=== PATIENT | male | born 1945 | race Caucasian/White ===

== ENCOUNTER 2019-11-04 11:04 | Observation (INO) | payer MEDICARE, OTHER ==
[2019-11-04] VITALS (7 sets, daily range): BP systolic 136–150; BP diastolic 76–90
[~2019-11-04] VITALS: Ht 187.9 cm; Wt 117.9 kg
[~2019-11-04 11:04] MED LIST: IBP600T1 PO; LISI1TAB32
[2019-11-04] MEDS ORDERED: NITROGLYCERIN 0.4 MG SL TABS BTL 25'S SL PRN ×2 (11:15→14:00)
[2019-11-04] MEDS ORDERED: ASPIRIN 81 MG CHEW (CHILDREN'S ASA) PO ONE (11:15)
--- NOTE | 2019-11-04 11:23 | ED Chest Pain ---
General Stated Complaint: CHEST PAIN Source: patient (VERY VAGUE HISTORIAN AND GIVES MINIMAL ANSWERS. ) History of Present Illness Date Seen by Provider: Nov 04, 2019 Time Seen by Provider: 11:07 Initial Comments PT ARRIVES VIA POV FROM HOME C/O LEFT UPPER CHEST PAIN, RADIATING DOWN LEFT ARM--SINCE Monday11/02/19 PAIN COMES AND GOES, AND IS WORSE WITH ACTIVITY. RATES PAIN 5/10 AT WORST, RATES 3-4/10 NOW. DOES NOT KNOW IF HE HAS HAD SHORTNESS OF BREATH OR NOT NO PALPITATIONS NO NAUSEA/VOMITING DOESN'T KNOW IF HE HAS HAD SWELLING IN FEET/ANKLES/LEGS OR NOT NO HISTORY OF SIMILAR PT HAS HTN PT IS ALSO DIABETIC, HAS NOT CHECKED HIS BLOOD SUGAR FOR SEVERAL DAYS. HAS TAKEN HIS AM MEDICATIONS, INCLUDING 3 IBUPROFEN--HAS HAD GOUT RECENTLY IN LEFT FOOT AND HAS BEEN TAKING IBUPROFEN FOR THAT--STATES HE WASN'T TAKING IT FOR THE CHEST PAIN, AND DOES NOT KNOW IF IT HAS HELPED HIS PAIN OR NOT. PAIN IS NO DIFFERENT TODAY HAS NOT SOUGHT CARE UNTIL TODAY PCP: DR. SIFUENTES Allergies and Home Medications Allergies Coded Allergies: Penicillins (Unverified Allergy, Mild, 07/27/09) Patient Home Medication List Home Medication List Reviewed: Yes Review of Systems Review of Systems Constitutional: no symptoms reported Respiratory: See HPI Cardiovascular: See HPI, Chest Pain Musculoskeletal: see HPI Psychiatric/Neurological: No Symptoms Reported Past Nxfipur-Byczed-Hmyqzf Hx Past Med/Social Hx: Reviewed and Corrections made Patient Social History Alcohol Use: Denies Use Recreational Drug Use: No Smoking Status: Never a Smoker Past Medical History Surgeries: Yes (BILATERAL KNEE REPLACEMENTS;COLONOSCOPY/POLYPECTOMIES 2006) Adenoidectomy, Gallbladder, Joint Replacement, Orthopedic, Tonsillectomy Respiratory: No Cardiac: Yes Hypertension Neurological: No Reproductive Disorders: No Genitourinary: Yes (E.D.) Gastrointestinal: Yes (S/P CHOLECYSTECTOMY;COLONOSCOPY 2006--POLYPECTOMY, DIVERTICULOSIS) Diverticulosis, Pancreatitis (DUE TO GALLSTONES), Polyps, Gall Bladder Disease Musculoskeletal: Yes (BILATERAL KNEE REPLACEMENTS; CHRONIC LOW BACK PAIN ) Arthritis, Chronic Back Pain, Gout Endocrine: Yes Diabetes, Non-Insulin dep HEENT: No Cancer: No Psychosocial: No Integumentary: No Blood Disorders: No Physical Exam Vital Signs Vital Signs - First Documented 11/04/19 11:07 Temp 37.0 Pulse 68 Resp 15 B/P (MAP) 188/101 (130) Pulse Ox 97 O2 Delivery Room Air Capillary Refill : Height, Weight, BMI Height: '" Weight: lbs. oz. kg; BMI Method: General Appearance: No Apparent Distress, WD/WN, Other (NONCHALANT, CHEWING GUM, DOES NOT MAKE EYE CONTACT. DOES NOT APPEAR TO BE IN ANY DISCOMFORT OR DISTRESS. 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 Norm as Tested Skin: Normal Color, Warm/Dry Progress/Results/Core Measures Results/Orders Lab Results Laboratory Tests Test 11/04/19 11:20 11/04/19 12:18 Range/Units White Blood Count 6.3 4.3-11.0 10^3/uL Red Blood Count 4.20 L 4.35-5.85 10^6/uL Hemoglobin 12.4 L 13.3-17.7 G/DL Hematocrit 36 L 40-54 % Mean Corpuscular Volume 86 80-99 FL Mean Corpuscular Hemoglobin 30 25-34 PG Mean Corpuscular Hemoglobin Concent 34 32-36 G/DL Red Cell Distribution Width 14.5 10.0-14.5 % Platelet Count 166 130-400 10^3/uL Mean Platelet Volume 9.6 7.4-10.4 FL Neutrophils (%) (Auto) 66 42-75 % Lymphocytes (%) (Auto) 21 12-44 % Monocytes (%) (Auto) 10 0-12 % Eosinophils (%) (Auto) 2 0-10 % Basophils (%) (Auto) 0 0-10 % Neutrophils # (Auto) 4.2 1.8-7.8 X 10^3 Lymphocytes # (Auto) 1.4 1.0-4.0 X 10^3 Monocytes # (Auto) 0.6 0.0-1.0 X 10^3 Eosinophils # (Auto) 0.1 0.0-0.3 10^3/uL Basophils # (Auto) 0.0 0.0-0.1 10^3/uL Prothrombin Time 13.7 12.2-14.7 SEC INR Comment 1.0 0.8-1.4 Activated Partial Thromboplast Time 29 24-35 SEC Sodium Level 140 135-145 MMOL/L Potassium Level 4.3 3.6-5.0 MMOL/L Chloride Level 106 98-107 MMOL/L Carbon Dioxide Level 25 21-32 MMOL/L Anion Gap 9 5-14 MMOL/L Blood Urea Nitrogen 26 H 7-18 MG/DL Creatinine 1.33 H 0.60-1.30 MG/DL Estimat Glomerular Filtration Rate 53 BUN/Creatinine Ratio 20 Glucose Level 92 70-105 MG/DL Calcium Level 9.9 8.5-10.1 MG/DL Corrected Calcium 9.8 8.5-10.1 MG/DL Magnesium Level 1.8 1.6-2.4 MG/DL Total Bilirubin 0.5 0.1-1.0 MG/DL Aspartate Amino Transf (AST/SGOT) 21 5-34 U/L Alanine Aminotransferase (ALT/SGPT) 21 0-55 U/L Alkaline Phosphatase 98 40-136 U/L Total Creatine Kinase 73 30-200 U/L Creatine Kinase MB 1.8 <6.6 NG/ML Myoglobin 118.1 H 10.0-92.0 NG/ML Troponin I < 0.028 <0.028 NG/ML B-Type Natriuretic Peptide 13.5 <100.0 PG/ML Total Protein 6.6 6.4-8.2 GM/DL Albumin 4.1 3.2-4.5 GM/DL Amylase Level 74 25-125 U/L Lipase 21 8-78 U/L Urine Color YELLOW Urine Clarity CLEAR Urine pH 5.5 5-9 Urine Specific [place] 1.010 L 1.016-1.022 Urine Protein NEGATIVE NEGATIVE Urine Glucose (UA) NEGATIVE NEGATIVE Urine Ketones NEGATIVE NEGATIVE Urine Nitrite NEGATIVE NEGATIVE Urine Bilirubin NEGATIVE NEGATIVE Urine Urobilinogen 0.2 < = 1.0 MG/DL Urine Leukocyte Esterase NEGATIVE NEGATIVE Urine RBC (Auto) NEGATIVE NEGATIVE Urine RBC NONE /HPF Urine WBC NONE /HPF Urine Squamous Epithelial Cells RARE /HPF Urine Crystals NONE /LPF Urine Bacteria NEGATIVE /HPF Urine Casts NONE /LPF Urine Mucus NEGATIVE /LPF Urine Culture Indicated NO My Orders Orders - JAMES PINEDA DO Cbc With Automated Diff (11/04/19 11:09) Magnesium (11/04/19 11:09) Chest 1 View, Ap/Pa Only (11/04/19 11:09) Ekg Tracing (11/04/19 11:09) Comprehensive Metabolic Panel (11/04/19 11:09) Myoglobin Serum (11/04/19 11:09) Protime With Inr (11/04/19 11:09) Partial Thromboplastin Time (11/04/19 11:09) O2 (11/04/19 11:09) Monitor-Rhythm Ecg Trace Only (11/04/19 11:09) Ed Iv/Invasive Line Start (11/04/19 11:09) Creatine Kinase (11/04/19 11:09) Creatine Kinase Mb (11/04/19 11:09) Lipase (11/04/19 11:09) Amylase (11/04/19 11:09) BNP (11/04/19 11:09) Nitroglycerin 0.4 Mg Btl 25's (Nitrostat (11/04/19 11:15) Aspirin Chewable Tablet (Baby Aspirin Ch (11/04/19 11:15) Troponin I (11/04/19 11:20) 1/2 Ns Iv Solution (0.45% Sodium Chlorid (11/04/19 12:30) Ua Culture If Indicated (11/04/19 12:30) Medications Given in ED Current Medications Medications Dose Ordered Sig/Gaby Route Start Time Stop Time Status Last Admin Dose Admin Aspirin 324 mg ONCE ONCE PO 11/04/19 11:15 11/04/19 11:16 DC 11/04/19 11:21 324 MG Nitroglycerin 0.4 mg UD PRN SL 11/04/19 11:15 11/04/19 11:22 0.4 MG Vital Signs/I&O 11/04/19 11:07 Temp 37.0 Pulse 68 Resp 15 B/P (MAP) 188/101 (130) Pulse Ox 97 O2 Delivery Room Air Progress Progress Note : Progress Note GIVEN ASPIRIN AND NTG X 1 WITH COMPLETE RELIEF OF SYMPTOMS, AND BP DOWN. NO DETERIORATION IN PT'S CONDITION DURING ER STAY Initial ECG Impression Date: Nov 04, 2019 Initial ECG Impression Time: 11:13 Initial ECG Rate: 64 Initial ECG Rhythm: Normal Sinus (LAFB) Initial ECG Impression: Nonspecific Changes Initial ECG Comparisson: Changed (AXIS CHANGE, LAFB--CHANGED FROM 2008. ) Diagnostic Imaging Comments CXR--MILD CARDIOMEGALY AND VASCULAR CONGESTION--PER RADIOLOGIST REPORT AT 1204 Reviewed: Reviewed by Me Departure Communication (Admissions) 1224--SPOKE WITH DR. PIPER, HOSPITALIST, ACCEPTS PT FOR ADMIT. WILL CONSULT CARDIOLOGY Impression Primary Impression: Chest pain Additional Impressions: HTN (hypertension) NIDDM Renal insufficiency Disposition: ADMITTED INPATIENT Condition: Improved Admissions Decision to Admit Reason: Admit from ER (General) Decision to Admit/Date: Nov 04, 2019 Time/Decision to Admit Time: 12:25 Departure-Patient Inst. Referrals: TASHA SIFUENTES MD (PCP) Primary Care Physician JAMES PINEDA DO Nov 04, 2019 11:23
[2019-11-04 11:33] LABS: BASOPHILS % (AUTO) 0 % (0-10); EOSINOPHILS # (AUTO) 0.1 10^3/uL (0.0-0.3); EOSINOPHILS % (AUTO) 2 % (0-10); HEMATOCRIT 36 % (40-54); HEMOGLOBIN 12.4 G/DL (13.3-17.7); LYMPHOCYTES # (AUTO) 1.4 X 10^3 (1.0-4.0); LYMPHOCYTES % (AUTO) 21 % (12-44); MEAN CORPUSCULAR HEMOGLOBIN 30 PG (25-34); MEAN CORPUSCULAR HGB CONC 34 G/DL (32-36); MEAN CORPUSCULAR VOLUME 86 FL (80-99); MEAN PLATELET VOLUME 9.6 FL (7.4-10.4); MONOCYTES # (AUTO) 0.6 X 10^3 (0.0-1.0); MONOCYTES % (AUTO) 10 % (0-12); NEUTROPHILS # (AUTO) 4.2 X 10^3 (1.8-7.8); NEUTROPHILS % (AUTO) 66 % (42-75); PLATELET COUNT 166 10^3/uL (130-400); RED CELL DISTRIBUTION WIDTH 14.5 % (10.0-14.5); WHITE BLOOD COUNT 6.3 10^3/uL (4.3-11.0)
[2019-11-04 11:53] LABS: PROTHROMBIN TIME PATIENT 13.7 SEC (12.2-14.7)
--- NOTE | 2019-11-04 11:59 | Diagnostic Imaging Report ---
INDICATION: Chest pain. EXAMINATION: Single AP view of the chest is obtained with comparison made to study of 07/27/2009. FINDINGS: There is mild cardiomegaly and pulmonary venous congestion, however no overt pulmonary edema is identified. There is no evidence of pneumothorax. No significant pleural fluid is seen. IMPRESSION: Mild cardiomegaly and pulmonary venous congestion without acute abnormality detected. Dictated by: Dictated on workstation # [id number]
[2019-11-04 12:05] LABS: CARBON DIOXIDE 25 MMOL/L (21-32); CHLORIDE 106 MMOL/L (98-107); POTASSIUM 4.3 MMOL/L (3.6-5.0); SODIUM 140 MMOL/L (135-145)
[2019-11-04 12:06] LABS: ALANINE AMINOTRANSFERASE 21 U/L (0-55); ALBUMIN 4.1 GM/DL (3.2-4.5); ALKALINE PHOSPHATASE 98 U/L (40-136); AMYLASE 74 U/L (25-125); BILIRUBIN,TOTAL 0.5 MG/DL (0.1-1.0); BUN/CREATININE RATIO 20; CALCIUM 9.9 MG/DL (8.5-10.1); CREATINE KINASE 73 U/L (30-200); CREATININE SERUM 1.33 MG/DL (0.60-1.30); GFR ESTIMATED 53; GLUCOSE 92 MG/DL (70-105); LIPASE 21 U/L (8-78); MAGNESIUM 1.8 MG/DL (1.6-2.4); TOTAL PROTEIN 6.6 GM/DL (6.4-8.2)
[2019-11-04 12:13] LABS: CREATINE KINASE MB 1.8 NG/ML (<6.6)
[2019-11-04 12:37] LABS: BILIRUBIN,URINE NEGATIVE (NEGATIVE); CLARITY,URINE CLEAR; COLOR,URINE YELLOW; GLUCOSE, URINE (UA) NEGATIVE (NEGATIVE); KETONES,URINE NEGATIVE (NEGATIVE); LEUKOCYTE ESTERASE ,URINE NEGATIVE (NEGATIVE); NITRITE,URINE NEGATIVE (NEGATIVE); PH,URINE 5.5 (5-9); PROTEIN,URINE NEGATIVE (NEGATIVE)
[2019-11-04 12:49] LABS: BACTERIA,URINE NEGATIVE /HPF; SQUAMOUS EPITHELIAL CELL,UR RARE /HPF
[2019-11-04] MEDS: 1/2 NS IV SOLUTION 1,000 ML IV SCH ×3 (12:50→22:54)
[2019-11-04] MEDS ORDERED: GLIM1TAB4 (13:11)
[2019-11-04] MEDS ORDERED: LISI1TAB26 PO (13:11)
[2019-11-04] MEDS ORDERED: METF500T19 PO (13:11)
[2019-11-04] MEDS ORDERED: AMLO5TAB9 PO (13:11)
[2019-11-04] MEDS ORDERED: ONDANSETRON 4 MG/2 ML (SDV) Z0FRAN IVP PRN (13:45)
[2019-11-04] MEDS ORDERED: 1/2 NS IV SOLUTION 1,000 ML IV SCH (13:45)
[2019-11-04] MEDS ORDERED: CATHETER FLUSH 10 ML SYR IV PRN (14:00)
[2019-11-04] MEDS ORDERED: morphine INJ 4 MG/ML 1 ML (VIAL/SYRINGE) IV PRN (14:00)
--- NOTE | 2019-11-04 14:47 | History & Physical-Hospitalist ---
HARRYMODE,MED STUDENT 11/04/19 1447: History of Present Illness HPI/Chief Complaint Patient is a 74 y/o male with history of hypertension and type II non-insulin dependent diabetes mellitus who presents with chest pain. 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 He describes it as a chest heaviness that radiates to the left side of his neck, shoulder, and arm. The pain is made worse with exertion and improves with rest. He denies any associated nausea, diaphoresis, or lightheadedness. No palpitations or sharp franck st pains. He rates the pain as a 5/10 in severity. He is not sure what his last A1c was or what his blood sugars have been over the past week. Date Seen 11/04/19 Time Seen by a Provider: 14:20 Attending Physician Chad Crabtree MD PCP Chad Crabtree MD Referring Physician Date of Admission Nov 04, 2019 at 12:44 Home Medications & Allergies Home Medications Reviewed patient Home Medication Reconciliation performed by pharmacy medication reconciliations civil technician and/or nursing. Patients Allergies have been reviewed. Allergies Allergies Coded Allergies Penicillins (Unverified Allergy, Mild, 07/27/09) Past Uvifutm-Xbfppa-Aexjja Hx Past Med/Social Hx: Reviewed and Corrections made Patient Social History Marrital Status: Alcohol Use: Denies Use Recreational Drug Use: No Smoking Status: Never a Smoker Recent Foreign Travel: No Contact w/other who traveled: No Recent Hopitalizations: Yes Recent Infectious Disease Expo: No Immunizations Up To Date Tetanus Booster (TDap): Unknown Pediatric: Yes Date of Influenza Vaccine: Jul 04, 2019 Past Medical History Surgeries: Adenoidectomy, Gallbladder, Joint Replacement, Orthopedic, Tonsill ectomy Cardiac: Hypertension Reproductive: No Sexually Transmitted Disease: No Gastrointestinal: Diverticulosis, Pancreatitis (DUE TO GALLSTONES), Polyps, Gall Bladder Disease Musculoskeletal: Arthritis, Chronic Back Pain, Gout Endocrine: Diabetes, Non-Insulin dep History of Blood Disorders: No Family History Diabetes, Hypertension, Stroke Review of Systems Constitutional: No diaphoresis, No fever EENTM: No hearing loss, No vision loss Respiratory: No cough, No short of breath Cardiovascular: chest pain; No edema, No palpitations Gastrointestinal: No abdominal pain, No constipation, No diarrhea, No nausea Genitourinary: No dysuria, No frequency Musculoskeletal: No joint pain, No muscle pain Skin: No lesions, No rash Psychiatric/Neurological: Denies Headache, Denies Numbness, Denies Paresthesia Physical Exam Physical Exam Vital Signs Vital Signs - First Documented 11/04/19 11:07 Temp 37.0 Pulse 68 Resp 15 B/P (MAP) 188/101 (130) Pulse Ox 97 O2 Delivery Room Air Capillary Refill : Less Than 3 Seconds Height, Weight, BMI Height: '" Weight: lbs. oz. kg; 33.00 BMI Method: General Appearance: No Apparent Distress, WD/WN HEENT: Pharynx Normal, Moist Mucous Membranes Neck: Normal Inspection, Non Tender, Supple Respiratory: Chest Non Tender, Lungs Clear, Normal Breath Sounds, No Accessory Muscle Use, No Respiratory Distress Cardiovascular: Regular Rate, Rhythm, No Edema, No Murmur Gastrointestinal: Non Tender, Soft Extremity: No Calf Tenderness, No Pedal Edema Neurologic/Psychiatric: Alert, Normal Mood/Affect Skin: Normal Color, Warm/Dry Results Results/Procedures Labs Laboratory Tests 11/04/19 11:20 Patient resulted labs reviewed. Assessment/Plan Admission Diagnosis Angina Assessment and Plan Stable angina - His myoglobin is elevated but troponin and CK-MB are wnl - Trend cardiac enzymes - Telemetry - Consult cardiology - Aspirin 81 mg daily - Nitro as needed - Lipid panel Acute kidney injury - May be due to elevated myoglobin - IV fluids NS at 160 ml/hr Non-insulin dependent type II DM - Hold metformin - Sliding scale insulin Clinical Quality Measures AMI/AHF: ASA po Prior to arrival: No DVT/VTE Risk/Contraindication: Risk Factor Score Per Nursin RFS Level Per Nursing on Admit: 2=Moderate DESHAUN HERNADEZ MD 11/04/19 1545: Assessment/Plan Admission Diagnosis Admission Status: Observation Assessment and Plan Pt has symptoms concerning for typical chest pain. Left sided chest heaviness with exertion that radiates to his jaw and left arm. No nausea. Mild dyspnea on exertion at times. Discussed with Dr Jack Nur's MICROBIOLOGY LAB ASSISTANT and plan is likely to proceed with cardiac cath. ASA given 324mg. Morpine and nitro prn pain. Hold home metformin for contrast. Diagnosis/Problems Diagnosis/Problems (1) HTN (hypertension) Status: Acute (2) Chest pain Status: Acute (3) Renal insufficiency Status: Acute Supervisory-Addendum Brief Verification & Attestation Participated in pt care: history, MDM, physical Personally performed: exam, history, MDM, supervision of care Care discussed with: Medical Student Procedures: n/a Results interpretation: Verified all documentation Verification and Attestation of Medical Student E/M Service A medical student performed and documented this service in my presence. I reviewed and verified all information documented by the medical student and made modifications to such information, when appropriate. I personally performed the physical exam and medical decision making. Deshaun Hernadez, Nov 04, 2019,15:45 MODE MCDONALD,MED STUDENT Nov 04, 2019 14:47 DESHAUN HERNADEZ MD Nov 04, 2019 15:45
--- NOTE | 2019-11-04 15:10 | Consultation-Cardiology ---
HPI-Cardiology Cardiology Consultation: Date of Consultation 11/04/19 Time Seen by a Provider: 15:05 Date of Admission 11-04-2019 Attending Physician Chad Crabtree MD Admitting Physician Chad Crabtree MD Consulting Physician CIERRA GÓMEZ HPI: Chief Complaint: Chest pain Mr. Matthew is a 74 year old male admitted to ICU 4 from the ED with c/o CP. 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 He reports after resting for a few minutes it improved. He states with exertion he would have a recurrence of the chest pressure and it would resolve with rest. He states on Monday it improved. 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 No c/o diaphoresis, dyspnea, palpitations, syncope or near syncope. He states he was having pain still when he arrived at the ED. He reports he received nitro in the ED and the pain resolved. He reports chronic bilat LE swelling which is least in the morning and worse at the end of the day. He reports he had an episode of gout in his right foot 2 weeks ago for which he was treated with Ibuprofen and abx tx. He reports episodes of "hot flashes" at night which he has had for over a year and was previously on testosterone tx, but has not been taking for over a year. He denies any n/v/d. He denies any fever. Review of Systems-Cardiology Review of Systems Constitutional: As described under HPI; No malaise Eyes: No vision change Ears/Nose/Throat: No epistaxis, No recent hearing loss Respiratory: As described under HPI Cardiovascular: As described under HPI Gastrointestinal: No constipation, No diarrhea, No nausea, No vomiting Genitourinary: No dysuria, No hematuria Musculoskeletal: As describe under HPI Skin: No rash on exposed areas, No ulcerations on exposed areas Psychiatric/Neurological: No anxiety, No depression, No seizure, No focal weakness, No syncope Hematologic: No bleeding abnormalities FRK-Mvobkd-Tluzcv Hx Patient Social History Alcohol Use: Denies Use Recreational Drug Use: No Smoking Status: Never a Smoker Recent Foreign Travel: No Recent Infectious Disease Expo: No Hospitalization with Isolation: Denies Immunizations Up To Date Tetanus Booster (TDap): Unknown Date of Influenza Vaccine: Jul 04, 2019 Past Medical History PMH As described under Assessment. Family Medical History Family Medical History: He reports his father had a CVA in his 70's. No other reported family h/o CAD. Allergies and Home Medications Allergies Coded Allergies: Penicillins (Unverified Allergy, Mild, 07/27/09) Physical Exam-Cardiology Physical Exam Vital Signs/I&O 11/04/19 11/04/19 11/05/19 11/05/19 22:00 23:00 00:00 00:00 Temp 36.6 Pulse 55 62 Resp 19 6 B/P (MAP) 145/77 (99) Pulse Ox 95 96 O2 Delivery Room Air Room Air Room Air 11/05/19 11/05/19 11/05/19 11/05/19 01:34 04:00 04:59 07:00 Pulse 60 52 59 Resp 12 B/P (MAP) 143/76 (98) Pulse Ox 94 O2 Delivery Room Air Room Air 11/05/19 11/05/19 08:00 08:00 Temp 36.3 Pulse 60 Resp 16 B/P (MAP) 145/81 (102) Pulse Ox 97 O2 Delivery Room Air Room Air 11/05/19 00:00 Intake Total 610 ml Output Total 1250 ml Balance -640 ml Capillary Refill : Less Than 3 Seconds Constitutional: AAO x 3, well-developed, well-nourished HEENT: PERRL, hearing is well preserved, oral hygience is good Neck: No carotid bruit; carotid pulses are 2 + bilaterally Respiratory: No accessory muscle use, No respiratory distress; chest expansion is symmetric, chest is bilaterally symmetric, lungs clear to auscultation Cardiovascular: regular rate-rhythm; No JVD; S1 and S2 Gastrointestinal: No tender; soft, round, audible bowel sounds Extremities: no lower extremity edema bilateral Neurologic/Psychiatric: grossly intact (moves all extremities) Skin: No rash on exposed areas, No ulcerations on exposed areas Data Review Labs Laboratory Tests 11/04/19 11:20: White Blood Count 6.3, Red Blood Count 4.20L, Hemoglobin 12.4L, Hematocrit 36L, Mean Corpuscular Volume 86, Mean Corpuscular Hemoglobin 30, Mean Corpuscular Hemoglobin Concent 34, Red Cell Distribution Width 14.5, Platelet Count 166, Mean Platelet Volume 9.6, Neutrophils (%) (Auto) 66, Lymphocytes (%) (Auto) 21, Monocytes (%) (Auto) 10, Eosinophils (%) (Auto) 2, Basophils (%) (Auto) 0, Ne utrophils # (Auto) 4.2, Lymphocytes # (Auto) 1.4, Monocytes # (Auto) 0.6, Eosinophils # (Auto) 0.1, Basophils # (Auto) 0.0, Prothrombin Time 13.7, INR Comment 1.0, Activated Partial Thromboplast Time 29, Sodium Level 140, Potassium Level 4.3, Chloride Level 106, Carbon Dioxide Level 25, Anion Gap 9, Blood Urea Nitrogen 26H, Creatinine 1.33H, Estimat Glomerular Filtration Rate 53, BUN/Creatinine Ratio 20, Glucose Level 92, Calcium Level 9.9, Corrected Calcium 9.8, Magnesium Level 1.8, Total Bilirubin 0.5, Aspartate Amino Transf (AST/SGOT) 21, Alanine Aminotransferase (ALT/SGPT) 21, Alkaline Phosphatase 98, Total Creatine Kinase 73, Creatine Kinase MB 1.8, Myoglobin 118.1H, Troponin I < 0.028, B-Type Natriuretic Peptide 13.5, Total Protein 6.6, Albumin 4.1, Amylase Level 74, Lipase 21 11/04/19 12:18: Urine Color YELLOW, Urine Clarity CLEAR, Urine pH 5.5, Urine Specific [place] 1.010L, Urine Protein NEGATIVE, Urine Glucose (UA) NEGATIVE, Urine Ketones NEGATIVE, Urine Nitrite NEGATIVE, Urine Bilirubin NEGATIVE, Urine Urobilinogen 0.2, Urine Leukocyte Esterase NEGATIVE, Urine RBC (Auto) NEGATIVE, Urine RBC NONE, Urine WBC NONE, Urine Squamous Epithelial Cells RARE, Urine Crystals NONE, Urine Bacteria NEGATIVE, Urine Casts NONE, Urine Mucus NEGATIVE, Urine Culture Indicated NO 11/04/19 14:40: Troponin I < 0.028 11/04/19 16:13: Glucometer 102 11/04/19 20:00: Glucometer 114H 11/05/19 03:07: White Blood Count 6.5, Red Blood Count 3.96L, Hemoglobin 11.7L, Hematocrit 35L, Mean Corpuscular Volume 87, Mean Corpuscular Hemoglobin 30, Mean Corpuscular H emoglobin Concent 34, Red Cell Distribution Width 14.2, Platelet Count 155, Mean Platelet Volume 9.8, Neutrophils (%) (Auto) 67, Lymphocytes (%) (Auto) 21, Monocytes (%) (Auto) 9, Eosinophils (%) (Auto) 2, Basophils (%) (Auto) 0, Neutrophils # (Auto) 4.4, Lymphocytes # (Auto) 1.4, Monocytes # (Auto) 0.6, Eosinophils # (Auto) 0.1, Basophils # (Auto) 0.0, Prothrombin Time 14.3, INR C omment 1.1, Activated Partial Thromboplast Time 30, Sodium Level 139, Potassium Level 4.2, Chloride Level 105, Carbon Dioxide Level 24, Anion Gap 10, Blood Urea Nitrogen 24H, Creatinine 1.18, Estimat Glomerular Filtration Rate > 60, BU N/Creatinine Ratio 20, Glucose Level 92, Calcium Level 9.5, Corrected Calcium 9.7, Total Bilirubin 0.5, Aspartate Amino Transf (AST/SGOT) 22, Alanine Aminotransferase (ALT/SGPT) 20, Alkaline Phosphatase 90, Total Protein 6.1L, Albumin 3.8, Triglycerides Level 185H, Cholesterol Level 189, LDL Cholesterol Direct 153H, VLDL Cholesterol 37, HDL Cholesterol 29L Radiology NAME: DEB MATTHEW MED REC#: [id number] PT STATUS: REG ER : 1945 PHYSICIAN: JAMES PINEDA DO ADMIT DATE: 11/04/19/ER Draft Date of Exam:11/04/19 CHEST 1 VIEW, AP/PA ONLY INDICATION: Chest pain. EXAMINATION: Single AP view of the chest is obtained with comparison made to study of 07/27/2009. FINDINGS: There is mild cardiomegaly and pulmonary venous congestion, however no overt pulmonary edema is identified. There is no evidence of pneumothorax. No significant pleural fluid is seen. IMPRESSION: Mild cardiomegaly and pulmonary venous congestion without acute abnormality detected. Dictated on workstation # [id number] Dict: 11/04/19 1157 Trans: 11/04/19 1159 [employer] [id number] Interpreted by: CHRIS LACKEY MD Electronically signed by: ECG Impression ECG Initial ECG Rhythm: Normal Sinus Comment LAFB A/P-Cardiology Assessment/Admission Diagnosis Chest pain of undetermined etiology - symptoms suggestive of stable angina HTN DM 2 Chronic bilat LE swelling, likely d/t venous insufficiency H/O gout Discussion and Recomendations Chest pain suggestive of stable angina Based on risk factors and symptoms advise cardiac cath Advise echocardiogram to eval structure Continue ASA Add BB Management of DM as per medical services Further recs will be based on his hospital course We would like to thank Dr. Hernadez for this consult I have spoken with her Clinical Quality Measures AMI/AHF: ASA po Prior to arrival: No DVT/VTE Risk/Contraindication: Risk Factor Score Per Nursin RFS Level Per Nursing on Admit: 2=Moderate CIERRA PHILLIPS Nov 04, 2019 15:10
[2019-11-04] MEDS ORDERED: NS IV 1000 ML 1,000 ML IV SCH (16:45)
[2019-11-04] MEDS: inSUlin ASPART (NovoLOG) 1 UNIT/0.01 ML (CHARGE PER UNIT) SC SCH ×2 (16:52→22:54)
--- NOTE | 2019-11-04 18:26 | Consultation-Cardiology ---
HPI-Cardiology Cardiology Consultation: Date of Consultation 11/04/19 Time Seen by a Provider: 17:50 Date of Admission Attending Physician Chad Crabtree MD Admitting Physician Chad Crabtree MD Consulting Physician TYRON HOLLOWAY MD, MA, FACP, FACC, FSCAI, CCDS HPI: Chief Complaint: CC: Chest pain HPI Mr. Matthew is a 74 year old male admitted to ICU 4 from the ED with c/o CP. 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 He reports after resting for a few minutes it improved. He states with exertion he would have a recurrence of the chest pressure and it would resolve with rest. He states on Monday it improved. 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 No c/o diaphoresis, dyspnea, palpitations, syncope or near syncope. He states he was having pain still when he arrived at the ED. He reports he received nitro in the ED and the pain resolved. He reports chronic bilat LE swelling which is least in the morning and worse at the end of the day. He reports he had an episode of gout in his right foot 2 weeks ago for which he was treated with Ibuprofen and abx tx. He reports episodes of "hot flashes" at night which he has had for over a year and was previously on testosterone tx, but has not been taking for over a year. He denies any n/v/d. He denies any fever. Review of Systems-Cardiology Review of Systems Constitutional: As described under HPI; No malaise Eyes: No vision change Ears/Nose/Throat: No epistaxis, No recent hearing loss Respiratory: As described under HPI Cardiovascular: As described under HPI Gastrointestinal: No constipation, No diarrhea, No nausea, No vomiting Genitourinary: No dysuria, No hematuria Musculoskeletal: As describe under HPI Skin: No rash on exposed areas, No ulcerations on exposed areas Psychiatric/Neurological: No anxiety, No depression, No seizure, No focal weakness, No syncope Hematologic: No bleeding abnormalities DHC-Gerwht-Lilezx Hx Patient Social History Marrital Status: Alcohol Use: Denies Use Recreational Drug Use: No Smoking Status: Never a Smoker Recent Foreign Travel: No Recent Infectious Disease Expo: No Hospitalization with Isolation: Denies Immunizations Up To Date Tetanus Booster (TDap): Unknown Date of Influenza Vaccine: Jul 04, 2019 Past Medical History PMH As described under Assessment. Family Medical History Family Medical History: He reports his father had a CVA in his 70's. No other reported family h/o CAD. Allergies and Home Medications Allergies Coded Allergies: Penicillins (Unverified Allergy, Mild, 07/27/09) Patient Home Medication List Home Medication List Reviewed: Yes Physical Exam-Cardiology Physical Exam Vital Signs/I&O 11/04/19 11/04/19 11/04/19 11/04/19 11:07 13:13 13:33 13:59 Temp 37.0 Pulse 68 61 54 Resp 15 13 B/P (MAP) 188/101 (130) 137/80 Pulse Ox 97 96 O2 Delivery Room Air Room Air Room Air 11/04/19 11/04/19 14:35 16:00 Temp 36.2 Pulse 77 Resp 18 B/P (MAP) 146/78 (100) 145/82 (103) Pulse Ox 98 O2 Delivery Room Air Room Air Capillary Refill : Less Than 3 Seconds Constitutional: AAO x 3, well-developed, well-nourished HEENT: PERRL, hearing is well preserved, oral hygience is good Neck: No carotid bruit; carotid pulses are 2 + bilaterally Respiratory: No accessory muscle use, No respiratory distress; chest expansion is symmetric, chest is bilaterally symmetric, lungs clear to auscultation Cardiovascular: regular rate-rhythm; No JVD; S1 and S2 Gastrointestinal: No tender; soft, round, audible bowel sounds Extremities: no lower extremity edema bilateral Neurologic/Psychiatric: grossly intact (moves all extremities) Skin: No rash on exposed areas, No ulcerations on exposed areas Data Review Labs Laboratory Tests 11/04/19 11:20: White Blood Count 6.3, Red Blood Count 4.20L, Hemoglobin 12.4L, Hematocrit 36L, Mean Corpuscular Volume 86, Mean Corpuscular Hemoglobin 30, Mean Corpuscular Hemoglobin Concent 34, Red Cell Distribution Width 14.5, Platelet Count 166, Mean Platelet Volume 9.6, Neutrophils (%) (Auto) 66, Lymphocytes (%) (Auto) 21, Monocytes (%) (Auto) 10, Eosinophils (%) (Auto) 2, Basophils (%) (Auto) 0, Neutrophils # (Auto) 4.2, Lymphocytes # (Auto) 1.4, Monocytes # (Auto) 0.6, Eosinophils # (Auto) 0.1, Basophils # (Auto) 0.0, Prothrombin Time 13.7, INR Comment 1.0, Activated Partial Thromboplast Time 29, Sodium Level 140, Potassium Level 4.3, Chloride Level 106, Carbon Dioxide Level 25, Anion Gap 9, Blood Urea Nitrogen 26H, Creatinine 1.33H, Estimat Glomerular Filtration Rate 53, BUN/Creatinine Ratio 20, Glucose Level 92, Calcium Level 9.9, Corrected Calcium 9.8, Magnesium Level 1.8, Total Bilirubin 0.5, Aspartate Amino Transf (AST/SGOT) 21, Alanine Aminotransferase (ALT/SGPT) 21, Alkaline Phosphatase 98, Total Creatine Kinase 73, Creatine Kinase MB 1.8, Myoglobin 118.1H, Troponin I < 0.028, B-Type Natriuretic Peptide 13.5, Total Protein 6.6, Albumin 4.1, Amylase Level 74, Lipase 21 11/04/19 12:18: Urine Color YELLOW, Urine Clarity CLEAR, Urine pH 5.5, Urine Specific [place] 1.010L, Urine Protein NEGATIVE, Urine Glucose (UA) NEGATIVE, Urine Ketones NEGATIVE, Urine Nitrite NEGATIVE, Urine Bilirubin NEGATIVE, Urine Urobilinogen 0.2, Urine Leukocyte Esterase NEGATIVE, Urine RBC (Auto) NEGATIVE, Urine RBC NONE, Urine WBC NONE, Urine Squamous Epithelial Cells RARE, Urine Crystals NONE, Urine Bacteria NEGATIVE, Urine Casts NONE, Urine Mucus NEGATIVE, Urine Culture Indicated NO 11/04/19 14:40: Troponin I < 0.028 11/04/19 16:13: Glucometer 102 A/P-Cardiology Assessment/Admission Diagnosis Chest pain of undetermined etiology - symptoms suggestive of new onset of angina Echo on 11/04/19: LVEF 60-65%, grade 1 griffin dysfunction, RVSP 32 mmHg HTN DM 2 Chronic bilat LE swelling, likely d/t venous insufficiency H/O gout Discussion and Recomendations Based on risk factors and symptoms, advise cardiac cath We discussed the rationale, procedure, risks, benefits, and alternatives of card cath and possible ad hoc PCI with him. He understands and provides in formed con sent Continue ASA Add BB Management of DM as per medical services Further recs will be based on his hospital course We would like to thank Dr. Hernadez for this consult Clinical Quality Measures AMI/AHF: ASA po Prior to arrival: No DVT/VTE Risk/Contraindication: Risk Factor Score Per Nursin RFS Level Per Nursing on Admit: 2=Moderate TYRON HOLLOWAY MD FACP FAC CCDS Nov 04, 2019 18:26
[2019-11-05] VITALS (11 sets, daily range): BP systolic 140–161; BP diastolic 76–98
[2019-11-05] MEDS: 1/2 NS IV SOLUTION 1,000 ML IV SCH ×3 (00:39→10:41)
[2019-11-05 03:35] LABS: BASOPHILS % (AUTO) 0 % (0-10); EOSINOPHILS # (AUTO) 0.1 10^3/uL (0.0-0.3); EOSINOPHILS % (AUTO) 2 % (0-10); HEMATOCRIT 35 % (40-54); HEMOGLOBIN 11.7 G/DL (13.3-17.7); LYMPHOCYTES # (AUTO) 1.4 X 10^3 (1.0-4.0); LYMPHOCYTES % (AUTO) 21 % (12-44); MEAN CORPUSCULAR HEMOGLOBIN 30 PG (25-34); MEAN CORPUSCULAR HGB CONC 34 G/DL (32-36); MEAN CORPUSCULAR VOLUME 87 FL (80-99); MEAN PLATELET VOLUME 9.8 FL (7.4-10.4); MONOCYTES # (AUTO) 0.6 X 10^3 (0.0-1.0); MONOCYTES % (AUTO) 9 % (0-12); NEUTROPHILS # (AUTO) 4.4 X 10^3 (1.8-7.8); NEUTROPHILS % (AUTO) 67 % (42-75); PLATELET COUNT 155 10^3/uL (130-400); RED CELL DISTRIBUTION WIDTH 14.2 % (10.0-14.5); WHITE BLOOD COUNT 6.5 10^3/uL (4.3-11.0)
[2019-11-05 03:51] LABS: INR 1.1 (0.8-1.4); PROTHROMBIN TIME PATIENT 14.3 SEC (12.2-14.7)
[2019-11-05 04:04] LABS: ALANINE AMINOTRANSFERASE 20 U/L (0-55); ALBUMIN 3.8 GM/DL (3.2-4.5); ALKALINE PHOSPHATASE 90 U/L (40-136); BILIRUBIN,TOTAL 0.5 MG/DL (0.1-1.0); BUN/CREATININE RATIO 20; CALCIUM 9.5 MG/DL (8.5-10.1); CARBON DIOXIDE 24 MMOL/L (21-32); CHLORIDE 105 MMOL/L (98-107); CHOLESTEROL 189 MG/DL (< 200); CREATININE SERUM 1.18 MG/DL (0.60-1.30); GFR ESTIMATED > 60; GLUCOSE 92 MG/DL (70-105); HDL CHOLESTEROL 29 MG/DL (40-60); POTASSIUM 4.2 MMOL/L (3.6-5.0); SODIUM 139 MMOL/L (135-145); TOTAL PROTEIN 6.1 GM/DL (6.4-8.2); TRIGLYCERIDES 185 MG/DL (<150); VLDL CHOLESTEROL 37 MG/DL (5-40)
[2019-11-05] MEDS: inSUlin ASPART (NovoLOG) 1 UNIT/0.01 ML (CHARGE PER UNIT) SC SCH ×3 (05:46→15:38)
[2019-11-05] MEDS ORDERED: ASPIRIN E.C. 81 MG (ECOTRIN) TAB PO SCH (09:00)
[2019-11-05] MEDS ORDERED: LIDOCAINE 1% INJ 20 ML 20 ML VIAL ONE (09:29)
[2019-11-05] MEDS ORDERED: HEParin (CATH LAB) 2,000 ML IV ONE (09:29)
[2019-11-05] MEDS ORDERED: MIDAZOLAM 5 MG/5 ML (VERSED) VIAL ONE (11:13)
[2019-11-05] MEDS ORDERED: fentaNYL INJECTION 100 MCG/2 ML AMP ONE (11:14)
--- NOTE | 2019-11-05 11:30 | Progress Note - Hospitalist ---
Subjective HPI/CC On Admission Date Seen by Provider: Nov 05, 2019 Time Seen by Provider: 08:06 Patient is a 74 y/o male with history of hypertension and type II non-insulin dependent diabetes mellitus who presents with chest pain. 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 He describes it as a ch est heaviness that radiates to the left side of his neck, shoulder, and arm. The pain is made worse with exertion and improves with rest. He denies any associated nausea, diaphoresis, or lightheadedness. No palpitations or sharp chest pains. He rates the pain as a 5/10 in severity. He is not sure what his last A1c was or what his blood sugars have been over the past week. Subjective/Events-last exam Patient is feeling well today. No further chest pain since yesterday. He states that the plan is to proceed with cardiac cath with Dr. Santiago today. No new complaints or concerns at this time. Objective Exam Vital Signs Vital Signs Date Time Temp Pulse Resp B/P (MAP) Pulse Ox O2 Delivery O2 Flow Rate FiO2 11/05/19 13:00 57 11/05/19 13:00 13 149/98 (115) 97 Room Air 11/05/19 12:30 36.6 Capillary Refill : Less Than 3 Seconds General Appearance: No Apparent Distress, WD/WN Respiratory: Chest Non Tender, Lungs Clear, Normal Breath Sounds, No Accessory Muscle Use, No Respiratory Distress Cardiovascular: Regular Rate, Rhythm, No Edema, No Murmur Gastrointestinal: Non Tender, Soft Extremity: No Calf Tenderness, No Pedal Edema Neurologic/Psychiatric: Alert, Normal Mood/Affect Skin: Normal Color, Warm/Dry Results/Procedures Lab Laboratory Tests 11/05/19 03:07 Patient resulted labs reviewed. Assessment/Plan Assessment and Plan Assess & Plan/Chief Complaint Stable angina - Cardiac cath with Dr. Santiago today - His myoglobin was elevated yesterday but serial troponin has remained wnl - Telemetry - Aspirin 81 mg daily - Morphine and nitro as needed Acute kidney injury - Creatinine wnl today, BUN trending down - Continue IV fluids Non-insulin dependent type II DM - Hold metformin - Sliding scale insulin Hyperlipidemia - Recommend starting statin therapy Clinical Quality Measures AMI/AHF: ASA po Prior to arrival: No DVT/VTE Risk/Contraindication: Risk Factor Score Per Nursin RFS Level Per Nursing on Admit: 2=Moderate MODE MCDONALD,MED STUDENT Nov 05, 2019 11:30
[2019-11-05] MEDS ORDERED: NS IV 1000 ML 1,000 ML ONE (11:38)
[2019-11-05] MEDS ORDERED: NS IV 1000 ML 1,000 ML IV SCH (12:23)
--- NOTE | 2019-11-05 12:25 | Cardiac Procedure Note-CS/ASA ---
Pre-Procedure Note Pre-Op Procedure Note H&P Reviewed The H&P was reviewed, patient examined and no changes noted. Date H&P Reviewed: Nov 05, 2019 Time H&P Reviewed: 11:45 Conscious Sedation Pre-Proced Time 11:45 ASA Score 3 For ASA 3 and 4: Consider anesthesia and medical clearance. Also, for patients with a history of failed moderate sedation consider anesthesia. Airway Lungs Heart ASA score ASA 1: a normal healthy patient ASA 2: a patient with a mild systemic disease (mid diabetes, controlled hypertension, obesity ASA 3: a patient with a severe systemic disease that limits activity (angina, COPD, prior Myocardial infarction) ASA 4: a patient with an incapacitating disease that is a constant threat to life (CHF, renal failure) ASA 5: a moribund patient not expected to survive 24 hrs. (ruptured aneurysm) ASA 6: a declared brain- patient whose organs are being harvested. For emergent operations, add the letter E after the classification Mallampati Classification Grade 2 Sedation Plan Analgesia, Amnesia, Plan communicated to team members, Discussed options with patient/fam, Discussed risks with patient/fam The patient is an appropriate candidate to undergo the planned procedure, sedation, and anesthesia. The patient immediately re-assessed prior to indication. TYRON HOLLOWAY MD FACP FAC CCDS Nov 05, 2019 12:25
[2019-11-05] MEDS ORDERED: PATIENT MAY USE OWN MEDS, ALL PO SCH (12:30)
--- NOTE | 2019-11-05 12:56 | CARDIAC CATHETERIZATION ---
DATE OF SERVICE: 11/05/2019 CARDIAC CATHETERIZATION REPORT The patient is a 74-year-old man who presented with chest pain suggestive of new onset of angina. He has multiple coronary artery disease risk factors. Cardiac catheterization was carried out after having obtained an informed consent. DESCRIPTION OF PROCEDURE: He was brought to the cardiac catheterization laboratory in a fasting state. Right groin was prepared and draped in the usual sterile fashion. Lidocaine 1% was used for local anesthesia. Modified Seldinger technique was used to advance a 5-[place] sheath in right femoral artery, 5-[place] JL4 catheter for left coronary angiography, 5-[place] JR4 catheter for right coronary angiography, 5-[place] pigtail catheter was used for left heart catheterization and left ventricular angiography. The pigtail was removed. Angiography of the right femoral artery was carried out through the sheath. Mynx was used to achieve hemostasis. He tolerated the procedure well. HEMODYNAMICS: Left ventricular end-diastolic pressure following coronary angiography was 12 mmHg. There was no significant pressure gradient on pullback across the aortic valve. Ascending aortic pressure was 153/77 with a mean of 105 mmHg. CORONARY ANGIOGRAPHY: Left main coronary artery and left anterior descending artery do not exhibit significant disease. Left circumflex artery has approximately 30% to 40% stenosis in the proximal portion of the first obtuse marginal. The right coronary artery has 20% to 30% proximal stenosis. LEFT VENTRICULAR ANGIOGRAPHY: Left ventricular angiography was carried out in the right anterior oblique projection. Global left ventricular systolic function is normal. No regional wall motion abnormalities seen. Left ventricular ejection fraction of 55% to 60%. CONCLUSIONS: 1. Angiographically mild coronary artery disease. 2. Normal global left ventricular systolic function with ejection fraction of 55% to 60%. 3. Normal left ventricular end-diastolic pressure. DISCUSSION AND RECOMMENDATIONS: Based on results of the study, it appears appropriate to continue a conservative approach. Risk factor modification has been advised. Outpatient followup is advised. Job ID: [id number] DocumentID: [id number] Dictated Date: 11/05/2019 12:19:33 Secondary School Teacher Librarian Date: 11/05/2019 12:55:40 Dictated By: TYRON HOLLOWAY MD, MA, FACP, FACC,
[2019-11-05] MEDS ORDERED: ATOR40TA PO (14:31)
[2019-11-05] MEDS ORDERED: ASPI-983 PO (14:31)
[2019-11-05] MEDS ORDERED: MTP25TSR PO (14:31)
--- NOTE | 2019-11-05 14:33 | Discharge Inst-Simple/Standard ---
Discharge Inst-Standard Discharge Medications New, Converted or Re-Newed RX: Transmitted to Pharmacy Patient Instructions/Follow Up Plan of Care/Instructions/FU: Please continue to take your medications as written but hold your metformin for the next two days because of the contrast you just received. Please follow up with Dr Crabtree in [address] Santiago in 2 weeks. Activity as Tolerated: Yes Discharge Diet: Cardiac Diet Return to The Hospital For: Chest pain, shortness of breath, abdominal pain, fever, if you feel you are getting worse. Planned Outpatient Orders/Ref. Pneu Vac Indicated: Yes DESHAUN PIPER MD Nov 05, 2019 14:33
--- NOTE | 2019-11-05 14:35 | Discharge Summary ---
MODE MCDNOALD,MED STUDENT 11/05/19 1435: Diagnosis/Chief Complaint Date of Admission Nov 04, 2019 at 12:44 Date of Discharge Discharge Date: Nov 05, 2019 Admission Diagnosis Primary Care Chad Crabtree MD Discharge Diagnosis (1) HTN (hypertension) Status: Acute (2) Chest pain Status: Acute (3) Renal insufficiency Status: Acute Discharge Summary Procedures/Consulations Cardiology Discharge Physical Exam Allergies: Coded Allergies: Penicillins (Unverified Allergy, Mild, 07/27/09) Vitals & I&Os Vital Signs Date Time Temp Pulse Resp B/P (MAP) Pulse Ox O2 Delivery O2 Flow Rate FiO2 11/05/19 13:00 57 11/05/19 13:00 13 149/98 (115) 97 Room Air 11/05/19 12:30 36.6 General Appearance: No Apparent Distress, WD/WN HEENT: Pharynx Normal, Moist Mucous Membranes Respiratory: Chest Non Tender, Lungs Clear, Normal Breath Sounds, No Accessory Muscle Use, No Respiratory Distress Cardiovascular: Regular Rate, Rhythm, No Edema, No Murmur Gastrointestinal: Non Tender, Soft Extremity: No Calf Tenderness, No Pedal Edema Skin: Normal Color, Warm/Dry Neurologic/Psychiatric: Alert, Normal Mood/Affect Hospital Course Was the Problem List Reviewed?: Yes Patient is a 74 y/o male who presented to the ED on 11/04/19 with chest heaviness that radiated to the left neck and shoulder. He had an elevated myoglobin but other cardiac markers were negative and he was admitted for further workup. His serial troponins remained negative throughout his hospitalization. He also had a slightly elevated creatinine which normalized with IV fluids. Cardiology was consulted and based on his presentation and risk factors, Dr. Santiago decided to do a cardiac catheterization. His catheterization revealed only mild coronary artery disease, normal EF, and normal left ventricular end-diastolic pressure. Continuing with a conservative approach was recommended and risk factor modification was discussed. Patient denied further chest pain or shortness of breath and he would like to go home. He will follow up with his primary care provider in the next 1 week and with cardiology as directed. Labs (last 24 hrs) Laboratory Tests 11/04/19 14:40: Troponin I < 0.028 11/04/19 16:13: Glucometer 102 11/04/19 20:00: Glucometer 114H 11/05/19 03:07: White Blood Count 6.5, Red Blood Count 3.96L, Hemoglobin 11.7L, Hematocrit 35L, Mean Corpuscular Volume 87, Mean Corpuscular Hemoglobin 30, Mean Corpuscular Hemoglobin Concent 34, Red Cell Distribution Width 14.2, Platelet Count 155, Mean Platelet Volume 9.8, Neutrophils (%) (Auto) 67, Lymphocytes (%) (Auto) 21, Monocytes (%) (Auto) 9, Eosinophils (%) (Auto) 2, Basophils (%) (Auto) 0, Neutrophils # (Auto) 4.4, Lymphocytes # (Auto) 1.4, Monocytes # (Auto) 0.6, Eosinophils # (Auto) 0.1, Basophils # (Auto) 0.0, Prothrombin Time 14.3, INR Comment 1.1, Activated Partial Thromboplast Time 30, Sodium Level 139, Potassium Level 4.2, Chloride Level 105, Carbon Dioxide Level 24, Anion Gap 10, Blood Urea Nitrogen 24H, Creatinine 1.18, Estimat Glomerular Filtration Rate > 60, BUN/Creatinine Ratio 20, Glucose Level 92, Calcium Level 9.5, Corrected Calcium 9.7, Total Bilirubin 0.5, Aspartate Amino Transf (AST/SGOT) 22, Alanine Aminotransferase (ALT/SGPT) 20, Alkaline Phosphatase 90, Total Protein 6.1L, Albumin 3.8, Triglycerides Level 185H, Cholesterol Level 189, LDL Cholesterol Direct 153H, VLDL Cholesterol 37, HDL Cholesterol 29L 11/05/19 11:23: Glucometer 90 Patient resulted labs reviewed. Pending Labs Laboratory Tests 11/05/19 11:23: Glucometer 90 Discharge Home Medications: Active Scripts Active Reported Lisinopril-Hctz 20-25 mg Tab (Lisinopril/Hydrochlorothiazide) 1 Each Tablet Amlodipine Besylate 5 Mg Tablet Glimepiride 1 Mg Tablet Metformin HCl ER (Metformin HCl) 500 Mg Tab.er.24h Motrin (Ibuprofen) 600 Mg Tab Zestoretic 20-25 Tablet (Lisinopril/Hydrochlorothiazide) 1 Each Tablet Instructions to patient/family Please see electronic discharge instructions given to patient. Clinical Quality Measures AMI/AHF: ASA po Prior to arrival: No DVT/VTE Risk/Contraindication: Risk Factor Score Per Nursin RFS Level Per Nursing on Admit: 2=Moderate DESHAUN HERNADEZ MD 11/05/19 1540: Discharge Summary Discharge Physical Exam Allergies: Coded Allergies: Penicillins (Unverified Allergy, Mild, 07/27/09) Discussion & Recommendations Discharge Planning: >30 minutes discharge planning Supervisory-Addendum Brief Verification & Attestation Participated in pt care: history, MDM, physical Personally performed: exam, history, MDM, supervision of care Care discussed with: Medical Student Procedures: n/a Results interpretation: Verified all documentation Verification and Attestation of Medical Student E/M Service A medical student performed and documented this service in my presence. I reviewed and verified all information documented by the medical student and made modifications to such information, when appropriate. I personally performed the physical exam and medical decision making. Deshaun Hernadez, Nov 05, 2019,15:40 Problem Qualifiers (1) Chest pain: Chest pain type: other chest pain Qualified Codes: R07.89 - Other chest pain MODE MCDONALD,MED STUDENT Nov 05, 2019 14:35 DESHAUN HERNADEZ MD Nov 05, 2019 15:40
[2019-11-05] MEDS ORDERED: GLIM1TAB4 PO (14:45)
--- NOTE | 2019-11-05 15:59 | Progress Note - Cardiology ---
Cardiology SOAP Progress Note Subjective: No cp or palp or syncope or shortness of breath No n/v/d No malaise or weakness or fever/chills Objective: I&O/Vital Signs 11/05/19 11/05/19 11/05/19 11/05/19 04:00 04:59 07:00 08:00 Temp 36.3 Pulse 52 59 60 Resp 12 16 B/P (MAP) 143/76 (98) 145/81 (102) Pulse Ox 94 97 O2 Delivery Room Air Room Air Room Air 11/05/19 11/05/19 11/05/19 11/05/19 08:00 11:23 12:30 12:30 Temp 36.8 36.6 Pulse 58 Resp 16 B/P (MAP) 155/80 (105) Pulse Ox 95 O2 Delivery Room Air Room Air Room Air 11/05/19 11/05/19 11/05/19 11/05/19 12:45 13:00 13:00 13:15 Pulse 56 55 57 52 Resp 19 13 13 B/P (MAP) 161/83 (109) 149/98 (115) 147/79 (101) Pulse Ox 97 97 95 O2 Delivery Room Air Room Air Room Air 11/05/19 11/05/19 13:30 14:00 Pulse 52 48 Resp 9 23 B/P (MAP) 156/83 (107) 154/82 (106) Pulse Ox 94 94 O2 Delivery Room Air Room Air 11/05/19 00:00 Intake Total 610 ml Output Total 1250 ml Balance -640 ml Constitutional: AAO x 3, well-developed, well-nourished Respiratory: No accessory muscle use, No respiratory distress; chest expansion is symmetric, chest is bilaterally symmetric, lungs clear to auscultation Cardiovascular: regular rate-rhythm; No JVD; S1 and S2 Gastrointestional: No tender; soft, round, audible bowel sounds Extremities: no lower extremity edema bilateral Neurologic/Psychiatric: grossly intact (moves all extremities) Skin: No rash on exposed areas, No ulcerations on exposed areas Results/Procedures: Labs Laboratory Tests 11/04/19 16:13: Glucometer 102 11/04/19 20:00: Glucometer 114H 11/05/19 03:07: White Blood Count 6.5, Red Blood Count 3.96L, Hemoglobin 11.7L, Hematocrit 35L, Mean Corpuscular Volume 87, Mean Corpuscular Hemoglobin 30, Mean Corpuscular Hemoglobin Concent 34, Red Cell Distribution Width 14.2, Platelet Count 155, Mean Platelet Volume 9.8, Neutrophils (%) (Auto) 67, Lymphocytes (%) (Auto) 21, Monocytes (%) (Auto) 9, Eosinophils (%) (Auto) 2, Basophils (%) (Auto) 0, Neutrophils # (Auto) 4.4, Lymphocytes # (Auto) 1.4, Monocytes # (Auto) 0.6, Eosinophils # (Auto) 0.1, Basophils # (Auto) 0.0, Prothrombin Time 14.3, INR Comment 1.1, Activated Partial Thromboplast Time 30, Sodium Level 139, Potassium Level 4.2, Chloride Level 105, Carbon Dioxide Level 24, Anion Gap 10, Blood Urea Nitrogen 24H, Creatinine 1.18, Estimat Glomerular Filtration Rate > 60, BUN/Cr eatinine Ratio 20, Glucose Level 92, Calcium Level 9.5, Corrected Calcium 9.7, Total Bilirubin 0.5, Aspartate Amino Transf (AST/SGOT) 22, Alanine Aminotransferase (ALT/SGPT) 20, Alkaline Phosphatase 90, Total Protein 6.1L, Albumin 3.8, Triglycerides Level 185H, Cholesterol Level 189, LDL Cholesterol Direct 153H, VLDL Cholesterol 37, HDL Cholesterol 29L 11/05/19 11:23: Glucometer 90 11/05/19 15:35: Glucometer 122H Laboratory Tests 11/04/19 11:20 11/05/19 03:07 A/P: Assessment: Chest pain, noncardiac (based on w/u noted below) etiology undetermined Card cath of 11/05/19: Mild CAD, LVEF 55-60%, normal LVEDP Echo on 11/04/19: LVEF 60-65%, grade 1 griffin dysfunction, RVSP 32 mmHg HTN DM 2 Chronic bilat LE swelling, likely d/t venous insufficiency H/O gout Plan: * We reviewed his cath findings with him and his family * Conservative therapy and risk factor recommended and reviewed * I discussed his case with Dr Hernadez on the phone * We recommend therapy with ASA, statin, and bb * We recommend outpt f/u Clinical Quality Measures AMI/AHF: ASA po Prior to arrival: TYRON Cooper MD FACP FAC CCDS Nov 05, 2019 15:59
== END 2019-11-05 16:25 | disposition home or self-care (01) ==
LOC: EDUNIT# 11:04 → ER 11:05 → ICU 12:44
PROVIDERS: ADMIT Family Medicine; ATTEND Internal Medicine
DX: I25.119 Atherosclerotic heart disease of native coronary artery with unspecified angina pectoris (principal); I10 Essential (primary) hypertension; M19.90 Unspecified osteoarthritis, unspecified site; M54.5 Low back pain; G89.29 Other chronic pain; E11.9 Type 2 diabetes mellitus without complications; N28.9 Disorder of kidney and ureter, unspecified; N17.9 Acute kidney failure, unspecified; Z96.653 Presence of artificial knee joint, bilateral; Z90.49 Acquired absence of other specified parts of digestive tract; Z88.0 Allergy status to penicillin; Z90.89 Acquired absence of other organs; Z82.3 Family history of stroke
CPT/HCPCS: 36415; 71045; 80053; 80061; 81000; 82150; 82550; 82553; 82962; 83690; 83735; 83874; 83880; 84484; 85025; 85027; 85610; 85730; 93005; 93041; 93306; 93458

== ENCOUNTER 2022-03-20 09:35 | Observation (INO) | payer MEDICARE, OTHER ==
[~2022-03-20] VITALS: Ht 182 cm; Wt 113.0 kg
[~2022-03-20 09:35] MED LIST changes: +AMLO-250 PO; +ASPI-1238 PO; +ATOR40TA PO; +GLIM1TAB4; +GLIM1TAB4 PO; +LISI1TAB48 PO; +METF-865 PO; +MTP25TSR PO
[2022-03-20] MEDS ORDERED: diphenhydrAMINE 50 MG/ML INJ (BENADRYL) IVP ONE (09:45)
[2022-03-20] MEDS ORDERED: NS IV 1000 ML 1,000 ML IV STA (11:12)
--- NOTE | 2022-03-20 11:20 | ED General ---
General Chief Complaint: Allergic Reaction Stated Complaint: POSS STROKE Nursing Triage Note: ARRIVED VIA WC TO ROOM 08 WITH COMPLAINTS OF POSSIBLE STROKE. PT COMPLAINS OF BILAT HAND NUMBESS AND THICK TOUNGE STARTING 1 HR PT. UPON FURTHER ASSESSMENT PT LIPS AND EYELIDS ARE SWOLLEN AND RASH NOTED ON TRUNK THAT ITCHES. PT STATES THIS HAPPENED ABOUT 2 MONTHS AGO ALSO. PT ALSO STATES HE FELL PRIOR TO THIS HURTING HIS RIGHT LOWER LEG. DENIES HITTING HIS HEAD. Source of Information: Patient (KARINA HELTON) History of Present Illness Date Seen by Provider: Mar 20, 2022 Time Seen by Provider: 11:16 Initial Comments This is a 76-year-old male that presents to the emergency room for multiple co mplaints. He states that earlier today he started having the sensation that his lips and tongue were swollen and that he had a rash on his chest. He states the rash is very itchy. He went to his shower to take a cold shower because he states that that was long finger would help with the itching while he was younger he passed out. He is unsure if he struck his head or not. He states he has never had any like this before and he denies any known exposures. He was concerned that he might be having a stroke because his father also had a stroke around the same age as him. He denies current headache, chest pain, shortness of breath or other symptoms. Timing/Duration: 1 Day Severity: Moderate (KARINA HELTON) Allergies and Home Medications Allergies Coded Allergies: Penicillins (Unverified Allergy, Mild, 07/27/09) Patient Home Medication List Home Medication List Reviewed: Yes (KARINA HELTON) Allopurinol (Allopurinol) 100 Mg Tablet, 200 MG PO HS, (Reported) Entered as Reported by: CARLOS BLOOM on 03/21/22 1059 Last Action: Reviewed Amlodipine Besylate (Amlodipine Besylate) 10 Mg Tablet, 10 MG PO DAILY Prescribed by: DESHAUN PIPER on 03/21/22 1457 Aspirin (Aspirin) 81 Mg Tab.chew, 81 MG PO DAILY Prescribed by: DESHAUN PIPER on 03/21/22 1458 Atorvastatin Calcium (Lipitor) 40 Mg Tablet, 40 MG PO HS Prescribed by: EARNEST OCHOA on 03/22/22 1145 Clopidogrel Bisulfate (Plavix) 75 Mg Tablet, 75 MG PO DAILY Prescribed by: Martha Stark on 03/22/22 1231 Glimepiride (Glimepiride) 1 Mg Tablet, 1 MG PO DAILY, (Reported) Entered as Reported by: INDIRA FAULKNER on 11/05/19 1445 Last Action: Reviewed Ibuprofen (Ibuprofen) 200 Mg Tablet, 600 MG PO Q8H PRN for PAIN-MILD (1-4), (Reported) Entered as Reported by: CARLOS BLOOM on 03/21/22 1103 Last Action: Reviewed Metformin HCl (Metformin HCl) 1,000 Mg Tablet, 2,000 MG PO DAILY, (Reported) Entered as Reported by: CARLOS BLOOM on 03/21/22 1100 Last Action: Reviewed Oxymetazoline HCl (Afrin) 0.05 % [place], 1 SPRAY NS HS, (Reported) Entered as Reported by: CARLOS BLOOM on 03/21/22 1102 Last Action: Reviewed Discontinued Medications Aspirin (Aspirin EC) 81 Mg Tablet.dr, 81 MG PO DAILY Discontinued Reason: No Longer Taking Prescribed by: BETH JEAN on 11/05/19 1540 Last Action: Discontinued Ibuprofen (Motrin) 600 Mg Tab, 600 MG PO BID, (Reported) Discontinued Reason: No Longer Taking Entered as Reported by: HUNG OTERO on 07/27/09 1707 Last Action: Discontinued Lisinopril/Hydrochlorothiazide (Lisinopril-Hctz 20-25 mg Tab) 1 Each Tablet, 1 TAB PO DAILY, (Reported) Entered as Reported by: MICHELLE TRACY on 11/04/19 1311 Last Action: Reviewed Metoprolol Succinate (Metoprolol Succinate) 25 Mg Tab.er.24h, 25 MG PO DAILY Discontinued Reason: No Longer Taking Prescribed by: BETH JEAN on 11/05/19 1540 Last Action: Discontinued Review of Systems Review of Systems Constitutional: other (Syncopal event) EENTM: other (Terminal with swelling) Respiratory: no symptoms reported Cardiovascular: no symptoms reported Genitourinary: no symptoms reported Musculoskeletal: other (Right anterior lower leg injury) Skin: other (Abrasion to the right anterior lower leg) Psychiatric/Neurological: Paresthesia, Other (Syncopal event) (KARINA HELTON) Past Urphfdt-Gizlqh-Fbadvn Hx Patient Social History Tobacco Use?: No Substance use?: No Alcohol Use?: No (KARINA HELTON) Immunizations Up To Date Tetanus Booster (TDap): Unknown PED Vaccines UTD: Yes Second COVID19 Vaccination Andrea: UNKNOWN DATE COVID19 Vaccine 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 (KARINA HELTON) Past Medical History Surgeries: Yes (BILATERAL KNEE REPLACEMENTS;COLONOSCOPY/POLYPECTOMIES 2006) Adenoidectomy, Gallbladder, Joint Replacement, Orthopedic, Tonsillectomy Respiratory: No Cardiac: Yes Hypertension Neurological: No Reproductive Disorders: No Sexually Transmitted Disease: No Genitourinary: Yes (E.D.) Gastrointestinal: Yes (S/P CHOLECYSTECTOMY;COLONOSCOPY 2006--POLYPECTOMY, DIVERTICULOSIS) Diverticulosis, Pancreatitis, Polyps, Gall Bladder Disease Musculoskeletal: Yes (BILATERAL KNEE REPLACEMENTS; CHRONIC LOW BACK PAIN ) Arthritis, Chronic Back Pain, Gout Endocrine: Yes Diabetes, Non-Insulin dep HEENT: No Cancer: No Psychosocial: No Integumentary: No Blood Disorders: No (KARINA HELTON) Family Medical History Diabetes, Hypertension, Stroke (KARINA HELTON) Physical Exam Vital Signs Vital Signs - First Documented 03/20/22 09:37 Temp 36.3 Pulse 85 Resp 16 B/P (MAP) 135/80 (98) Pulse Ox 95 O2 Delivery Room Air (REMEDIOS NEAL MD) Vital Signs Capillary Refill : Less Than 3 Seconds (KARINA HELTON) Height, Weight, BMI Height: '" Weight: lbs. oz. kg; 34.00 BMI Method: General Appearance: No Apparent Distress, WD/WN Eyes: Bilateral Eye Normal Inspection, Bilateral Eye PERRL, Bilateral Eye EOMI HEENT: PERRL/EOMI, TMs Normal, Normal ENT Inspection, Pharynx Normal Neck: Full Range of Motion, Normal Inspection, Non Tender, Supple Respiratory: Chest Non Tender, Lungs Clear Cardiovascular: Regular Rate, Rhythm Gastrointestinal: Normal Bowel Sounds Back: Normal Inspection, No CVA Tenderness, No Vertebral Tenderness Extremity: Normal Capillary Refill, Normal Range of Motion, Other (Superficial L-shaped abrasion to the right anterior lower leg without deep structure involvement. No active bleeding.) Neurologic/Psychiatric: Alert, Oriented x3, manager electrical II-XII Norm as Tested Skin: Normal Color, Warm/Dry (KARINA HELTON) Progress/Results/Core Measures Suspected Sepsis SIRS Temperature: Pulse: 85 Respiratory Rate: 16 Laboratory Tests 03/20/22 09:40: White Blood Count 12.3H Blood Pressure 135 /80 Mean: 98 Laboratory Tests 03/20/22 09:40: Creatinine 1.97H, Platelet Count 246, Total Bilirubin 0.6 (KARINA HELTON) Results/Orders Lab Results Laboratory Tests Test 03/20/22 09:40 03/20/22 10:26 03/20/22 11:26 Range/Units White Blood Count 12.3 H 4.3-11.0 10^3/uL Red Blood Count 4.79 4.30-5.52 10^6/uL Hemoglobin 14.7 13.3-17.7 g/dL Hematocrit 44 40-54 % Mean Corpuscular Volume 91 80-99 fL Mean Corpuscular Hemoglobin 31 25-34 pg Mean Corpuscular Hemoglobin Concent 34 32-36 g/dL Red Cell Distribution Width 14.3 10.0-14.5 % Platelet Count 246 130-400 10^3/uL Mean Platelet Volume 11.2 9.0-12.2 fL Immature Granulocyte % (Auto) 1 % Neutrophils (%) (Auto) 51 42-75 % Lymphocytes (%) (Auto) 42 12-44 % Monocytes (%) (Auto) 4 0-12 % Eosinophils (%) (Auto) 2 0-10 % Basophils (%) (Auto) 0 0-10 % Neutrophils # (Auto) 6.3 1.8-7.8 10^3/uL Lymphocytes # (Auto) 5.1 H 1.0-4.0 10^3/uL Monocytes # (Auto) 0.5 0.0-1.0 10^3/uL Eosinophils # (Auto) 0.2 0.0-0.3 10^3/uL Basophils # (Auto) 0.0 0.0-0.1 10^3/uL Immature Granulocyte # (Auto) 0.1 0.0-0.1 10^3/uL Sodium Level 142 135-145 MMOL/L Potassium Level 3.9 3.6-5.0 MMOL/L Chloride Level 107 98-107 MMOL/L Carbon Dioxide Level 19 L 21-32 MMOL/L Anion Gap 16 H 5-14 MMOL/L Blood Urea Nitrogen 50 H 7-18 MG/DL Creatinine 1.97 H 0.60-1.30 MG/DL Estimat Glomerular Filtration Rate 35 BUN/Creatinine Ratio 25 Glucose Level 190 H 70-105 MG/DL Calcium Level 10.2 H 8.5-10.1 MG/DL Corrected Calcium 10.0 8.5-10.1 MG/DL Total Bilirubin 0.6 0.1-1.0 MG/DL Aspartate Amino Transf (AST/SGOT) 24 5-34 U/L Alanine Aminotransferase (ALT/SGPT) 25 0-55 U/L Alkaline Phosphatase 101 40-136 U/L Troponin I 0.030 H <0.028 NG/ML Total Protein 6.8 6.4-8.2 GM/DL Albumin 4.2 3.2-4.5 GM/DL Glucometer 189 H 70-110 MG/DL Influenza Type A (RT-PCR) Not Detected Not Detecte Influenza Type B (RT-PCR) Not Detected Not Detecte SARS-CoV-2 RNA (RT-PCR) Not Detected Not Detecte (REMEDIOS NEAL MD) My Orders Orders - REMEDIOS NEAL MD Ed Iv/Invasive Line Start (03/20/22 09:45) Diphenhydramine Injection (Benadryl Inje (03/20/22 09:45) Ekg Tracing (03/20/22 10:30) (REMEDIOS NEAL MD) Vital Signs/I&O 03/20/22 09:37 Temp 36.3 Pulse 85 Resp 16 B/P (MAP) 135/80 (98) Pulse Ox 95 O2 Delivery Room Air (REMEDIOS NEAL MD) Vital Signs/I&O Capillary Refill : Less Than 3 Seconds (KARINA HELTON) Blood Pressure Mean: 98 Point of Care Testing Finger Stick Blood Glucose: 189 (KARINA HELTON) Departure Communication (Admissions) Patient is afebrile, nontoxic and in no distress. His rash and swelling of the lips and tongue have resolved since being here. He does appear mildly dehydrated. EKG shows nonspecific changes but his troponin was mildly elevated at 0.03. Additionally, he has an acute kidney injury with a creatinine of 1.97 whereas his baseline appears to be around 0.9. At this time I spoke with the hospitalist Dr. Ochoa and he agrees to admit the patient for syncopal events, dehydration and acute kidney injury. (KARINA HELTON) Impression Primary Impression: Syncope Additional Impressions: Acute kidney injury Dehydration, moderate Elevated troponin I level Disposition: ADMITTED INPATIENT Condition: Stable Admissions Decision to Admit Reason: Admit from ER (General) Decision to Admit/Date: Mar 20, 2022 Time/Decision to Admit Time: 12:43 (KARINA HELTON) Departure-Patient Inst. Referrals: TASHA SIFUENTES MD (PCP/Family) Primary Care Physician Scripts Clopidogrel Bisulfate (Plavix) 75 Mg Tablet 75 MG PO DAILY for 30 Days, #30 TAB Prov: TYRON HOLLOWAY MD FACP FACC CCDS 03/22/22 Atorvastatin Calcium (Lipitor) 40 Mg Tablet 40 MG PO HS for 30 Days, #30 TAB Prov: EARNEST OCHOA MD 03/22/22 Aspirin (Aspirin) 81 Mg Tab.chew 81 MG PO DAILY, #30 TAB Prov: DESHAUN PIPER MD 03/21/22 Amlodipine Besylate (Amlodipine Besylate) 10 Mg Tablet 10 MG PO DAILY, #30 TAB Prov: DESHAUN PIPER MD 03/21/22 ATTENDING PHYSICIAN NOTE: I was physically present as attending physician in the emergency department during the care of this patient. I received the initial report from nursing triage regarding pruritic rash from nursing staff and ordered benadryl. Care was then assumed by ADAM Jimenez. I was otherwise not directly involved in the decision making or delivery of care for this patient. (REMEDIOS NEAL MD) KARINA HELTON Mar 20, 2022 11:20 REMEDIOS NEAL MD Mar 22, 2022 17:45
[2022-03-20 11:22] LABS: BASOPHILS % (AUTO) 0 % (0-10); EOSINOPHILS # (AUTO) 0.2 10^3/uL (0.0-0.3); EOSINOPHILS % (AUTO) 2 % (0-10); HEMATOCRIT 44 % (40-54); HEMOGLOBIN 14.7 g/dL (13.3-17.7); LYMPHOCYTES # (AUTO) 5.1 10^3/uL (1.0-4.0); LYMPHOCYTES % (AUTO) 42 % (12-44); MEAN CORPUSCULAR HEMOGLOBIN 31 pg (25-34); MEAN CORPUSCULAR HGB CONC 34 g/dL (32-36); MEAN CORPUSCULAR VOLUME 91 fL (80-99); MEAN PLATELET VOLUME 11.2 fL (9.0-12.2); MONOCYTES # (AUTO) 0.5 10^3/uL (0.0-1.0); MONOCYTES % (AUTO) 4 % (0-12); NEUTROPHILS # (AUTO) 6.3 10^3/uL (1.8-7.8); NEUTROPHILS % (AUTO) 51 % (42-75); PLATELET COUNT 246 10^3/uL (130-400); WHITE BLOOD COUNT 12.3 10^3/uL (4.3-11.0)
[2022-03-20 11:27] LABS: ALBUMIN 4.2 GM/DL (3.2-4.5)
[2022-03-20 11:28] LABS: POTASSIUM 3.9 MMOL/L (3.6-5.0)
[2022-03-20 11:29] LABS: CALCIUM 10.2 MG/DL (8.5-10.1)
[2022-03-20 11:30] LABS: TOTAL PROTEIN 6.8 GM/DL (6.4-8.2)
[2022-03-20] MEDS ORDERED: TETANUS,DIPTH,PERTUSS P/F (BOOSTRIX) 0.5 ML VIAL IM ONE (11:30)
[2022-03-20 11:32] LABS: BILIRUBIN,TOTAL 0.6 MG/DL (0.1-1.0)
[2022-03-20 11:34] LABS: CREATININE SERUM 1.97 MG/DL (0.60-1.30)
--- NOTE | 2022-03-20 11:59 | Diagnostic Imaging Report ---
PROCEDURE: CT head and CT cervical spine without contrast. TECHNIQUE: Multiple contiguous axial images were obtained through the brain and cervical spine without the use of intravenous contrast. Sagittal and coronal reformations through the cervical spine were then performed. Auto Exposure Controls were utilized during the CT exam to meet ALARA standards for radiation dose reduction. INDICATION: Fall. Bilateral hand numbness. Tongue paresthesias. COMPARISON: Cervical spine MRI of 12/16/2015. FINDINGS: CT head without contrast. Moderate generalized parenchymal volume loss. Intracranial vascular calcifications. No intracranial hemorrhage, mass effect, hydrocephalus or extra-axial fluid collections. No CT evidence of a territorial infarction. Osseous structures are intact. Mild mucosal thickening in the left maxillary sinus. The mastoids are clear. CT cervical spine: Normal alignment. Vertebral body heights preserved. Moderate spondylotic changes are greatest at C5-T1. No fractures. Visualized paravertebral soft tissues are unremarkable. Lung apices are clear. IMPRESSION: No acute intracranial or cervical spine CT findings. Chronic findings as above. Dictated by: Dictated on workstation # [id number]
--- NOTE | 2022-03-20 12:04 | Diagnostic Imaging Report ---
EXAM: CHEST 1 VIEW, AP/PA ONLY INDICATION: Chest pain. COMPARISON: 11/04/2019. FINDINGS: Normal heart size and pulmonary vascularity. No dense consolidation, pleural effusion or pneumothorax. No acute osseous findings. IMPRESSION: No acute cardiopulmonary findings. Dictated by: Dictated on workstation # [id number]
[2022-03-20] MEDS ORDERED: CALCIUM CARBONATE 500 MG (TUMS) TAB.CHEW PO PRN (15:15)
[2022-03-20] MEDS ORDERED: diphenhydrAMINE 25 MG TAB (BENADRYL) PO PRN (15:15)
[2022-03-20] MEDS ORDERED: MELATONIN 3 MG TABLET PO PRN (15:15)
[2022-03-20] MEDS ORDERED: ONDANSETRON 4 MG/2 ML (SDV) Z0FRAN IV PRN (15:15)
[2022-03-20] MEDS ORDERED: BISACODYL 10 MG SUPP (DULCOLAX) PR PRN (15:15)
[2022-03-20] MEDS ORDERED: diphenhydrAMINE 50 MG/ML INJ (BENADRYL) IVP PRN (15:15)
[2022-03-20] MEDS ORDERED: ACETAMINOPHEN 325 MG TABLET PO PRN (15:15)
[2022-03-20] MEDS ORDERED: MILK OF MAGNESIA 400 MG/5 ML 30 ML UDC PO PRN (15:15)
[2022-03-20] MEDS ORDERED: polyethylene glycoL POWDER 17 GM (MIRALAX) PACK PO PRN (15:15)
[2022-03-20] MEDS ORDERED: ANTACID SUSP 30 ML UDC (MYLANTA) PO PRN (15:15)
[2022-03-20] MEDS ORDERED: ONDANSETRON 4 MG (ZOFRAN) ORAL DISSOLVE TAB PO PRN (15:15)
[2022-03-20] MEDS ORDERED: LACTULOSE SYRUP 10GM/15ML (ENULOSE) 30ML UDC PO PRN (15:15)
[2022-03-20] MEDS: ENOXAPARIN 40 MG/0.4 ML (LOVENOX) SYR SC SCH (16:23)
[2022-03-20] MEDS: inSUlin ASPART (NovoLOG) 1 UNIT/0.01 ML (CHARGE PER UNIT) SC SCH ×2 (16:23→20:55)
[2022-03-20 16:27] VITALS: BP 127/68
[2022-03-20] MEDS ORDERED: ALLO100T PO (16:35)
[2022-03-20 17:48] VITALS: BP_SYST 149; BP_SYST 163; BP_DIAS 72; BP_DIAS 87
[2022-03-20 19:41] VITALS: BP 188/90
[2022-03-20] MEDS ORDERED: hydrALAZINE (APESOLINE) 20 MG/ML VIAL IV PRN (20:15)
[2022-03-20] MEDS ORDERED: amLODIPine 10 MG (NORVASC) TAB PO ONE (20:15)
[2022-03-20] MEDS: DOCUSATE SODIUM 100 MG (COLACE) CAP PO SCH (20:54)
[2022-03-20] MEDS: SENNOSIDES 8.6 MG (SENOKOT) TAB PO SCH (20:54)
[2022-03-21] VITALS: BP 149/82
[2022-03-21 04:22] VITALS: BP 145/67
[2022-03-21] MEDS: inSUlin ASPART (NovoLOG) 1 UNIT/0.01 ML (CHARGE PER UNIT) SC SCH ×4 (05:47→21:04)
[2022-03-21 06:04] LABS: BASOPHILS % (AUTO) 0 % (0-10); HEMOGLOBIN 11.5 g/dL (13.3-17.7); MONOCYTES # (AUTO) 0.5 10^3/uL (0.0-1.0)
[2022-03-21 06:06] LABS: EOSINOPHILS # (AUTO) 0.3 10^3/uL (0.0-0.3); EOSINOPHILS % (AUTO) 4 % (0-10); HEMATOCRIT 34 % (40-54); LYMPHOCYTES # (AUTO) 1.9 10^3/uL (1.0-4.0); LYMPHOCYTES % (AUTO) 27 % (12-44); MEAN CORPUSCULAR HEMOGLOBIN 31 pg (25-34); MEAN CORPUSCULAR HGB CONC 34 g/dL (32-36); MEAN CORPUSCULAR VOLUME 92 fL (80-99); MEAN PLATELET VOLUME 10.1 fL (9.0-12.2); MONOCYTES % (AUTO) 7 % (0-12); NEUTROPHILS # (AUTO) 4.3 10^3/uL (1.8-7.8); NEUTROPHILS % (AUTO) 62 % (42-75); PLATELET COUNT 113 10^3/uL (130-400)
[2022-03-21 06:17] LABS: POTASSIUM 4.2 MMOL/L (3.6-5.0)
[2022-03-21 06:18] LABS: CALCIUM 9.5 MG/DL (8.5-10.1)
[2022-03-21] MEDS: POTASSIUM CL 10MEQ/50ML IVPB 50 ML IV SCH (06:22)
[2022-03-21] MEDS: KCL 20 MEQ TAB (K-DUR) PO SCH (06:22)
[2022-03-21 06:23] LABS: CREATININE SERUM 1.58 MG/DL (0.60-1.30)
[2022-03-21 06:25] LABS: MAGNESIUM 1.9 MG/DL (1.6-2.4)
[2022-03-21] MEDS: MAGNESIUM 1 GM/100 ML IVPB 100 ML IV SCH (06:42)
[2022-03-21 07:41] VITALS: BP 138/80
[2022-03-21] MEDS: SENNOSIDES 8.6 MG (SENOKOT) TAB PO SCH ×2 (09:00→20:40)
[2022-03-21] MEDS: amLODIPine 10 MG (NORVASC) TAB PO SCH (09:00)
[2022-03-21] MEDS: DOCUSATE SODIUM 100 MG (COLACE) CAP PO SCH ×2 (09:00→20:39)
--- NOTE | 2022-03-21 09:27 | Occupational Therapy Eval ---
OT Evaluation-General/PLF Medical Diagnosis Admission Date Mar 20, 2022 at 13:05 Medical Diagnosis: MELISSA, elevated troponin Onset Date: Mar 20, 2022 Therapy Diagnosis Therapy Diagnosis: decreased ADL status and weakness Precautions Precautions/Isolations: Fall Prevention, Standard Precautions Referral Physician: Lilliam Referral Reason: Evaluation/Treatment Medical History Additional Medical History HTN, DM, diverticulosis, pancreatis, arthritis, CBP, and gout Current History Admitted to ED with mix of allergenic reactions and stroke-like symptoms such as bilateral hand numbness, thick tongue, swollen lips and eyelids, and trunk rash. Social History Current Living Status: Spouse ADL-Prior Level of Function SCALE: Activities may be completed with or without assistive devices. 9-Ulkjjdzbvc-bcqkcsm completes the activity by him/herself with no assistance from a helper. 5-Set-up or Clean-up Assistance-helper sets up or cleans up; patient completes activity. Hardy assists only prior to or following the activity. 4-Supervision or Touching Assistance-helper provides verbal cues and/or touching/steadying and/or contact guard assistance as patient completes activity. Assistance may be provided throughout the activity or intermittently. 3-Partial/Moderate Assistance-helper does LESS THAN HALF the effort. Hardy lifts, holds or supports trunk or limbs, but provides less than half the effort. 2-Substantial/Maximal Assistance-helper does MORE THAN HALF the effort. Hardy lifts or holds trunk or limbs and provides more than half the effort. 8-Fsyknptmi-qrxsjk does ALL the effort. Patient does none of the effort to complete the activity. Or, the assistance of 2 or more helpers is required for the patient to complete the activity. If activity was not attempted, code reason: 7-Patient Refused. 9-Not Applicable-not attempted and the patient did not perform the activity before the current illness, exacerbation or injury. 10-Not Attempted due to Environmental Limitations-(lack of equipment, weather restraints, etc.). 88-Not Attempted due to Medical Conditions or Safety Concerns. ADL PLOF Comments Pt reports being IND with all ADLs at [facility]. He has a walk-in shower with grab bars and a SC, but he does not use them as he says they were put in for his ycldgc-ks-tvy. He does not use any other DME or AD. Self Care: Independent Functional Cognition: Independent DME/Equipment: Bath Chair, Grab Bars, Shower OT Current Status Subjective Pt laying in bed with present up OT arrival, agreeable to eval/tx. Mental Status/Objective Patient Orientation: Person, Place, Situation Current Upper Extremity ROM Not formally tested but observed to be WFL Upper Extremity Sensation Pt reports numbness in the ulnar distribution on R hand currently, but says he often experiences numbness and tingling in bilateral hands which is not new to his condition Upper Extremity Strength 5/5 bilaterally ADL-Treatment Upper Body Dressing (QC): 6 (Per clinical judgement) Lower Body Dressing (QC): 6 (per pt report) On/Off Footwear (QC): 6 (seated EOB) Other Treatments Pt in bed, agreeable to OT evaluation. Pt transferred supine to sit EOB independently, independent with donning socks and reports IND with donning pants. Pt and SO report no concerns with his ability to perform ADLs and feels like he is at PLOF. Per PT report, pt independent with mobility, 500' without AD. Post tx, pt in bed, call light in reach and all needs met. Education OT Patient Education: Correct positioning, Energy conservation, Modified ADL techniques, Progress toward Goal/Update tx plan, Purpose of tx/functional activities, Rehab process Teaching Recipient: Patient, Significant Other Teaching Methods: Discussion Response to Teaching: Verbalize Understanding OT [facility] Goals [facility] Goals 1=Demonstrate adherence to instructed precautions during ADL tasks. 2=Patient will verbalize/demonstrate understanding of assistive devices/m odifications for ADL. 3=Patient will improve strength/tolerance for activity to enable patient to perform ADL's. OT Education/Plan Problem List/Assessment Assessment: No Skilled OT Needs ID'd Discharge Recommendations Plan/Recommendations: Discharge/Goals Met Treatment Plan/Plan of Care Patient would benefit from OT for education, treatment and training to promote independence in ADL's, mobility, safety and/or upper extremity function for ADL's. Plan of Care: ADL Retraining Treatment Duration: Mar 21, 2022 Frequency: 1 time per week (eval only) Estimated Hrs Per Day: .25 hour per day Time/GCodes Start Time: 08:45 Stop Time: 08:56 Total Time Billed (hr/min): 11 Billed Treatment Time 1, EVL (11') BLANE GOVEA OT Mar 21, 2022 09:27
--- NOTE | 2022-03-21 09:56 | Physical Therapy Evaluation ---
PT Evaluation-General Medical Diagnosis Admission Date Mar 20, 2022 at 13:05 Medical Diagnosis: MELISSA, elevated troponin Onset Date: Mar 20, 2022 Therapy Diagnosis Therapy Diagnosis: debility Precautions Precautions/Isolations: Fall Prevention, Standard Precautions Referral Physician: Lilliam Reason for Referral: Evaluation/Treatment Medical History Pertinent Medical History: DM, HTN Current History ER secondary to swollen face, tongue, lips, and a rash on his torso (bilateral hand numbness) Reviewed History: Yes Social History Home: Single Level Entry Into Home: Stairs With Railing PT Steps Into Home: 4 Prior Prior Level of Function SCALE: Activities may be completed with or without assistive devices. 4-Datfxvytnl-zkcrrpd completes the activity by him/herself with no assistance from a helper. 5-Set-up or Clean-up Assistance-helper sets up or cleans up; patient completes activity. Luck assists only prior to or following the activity. 4-Supervision or Touching Assistance-helper provides verbal cues and/or touching/steadying and/or contact guard assistance as patient completes activity. Assistance may be provided throughout the activity or intermittently. 3-Partial/Moderate Assistance-helper does LESS THAN HALF the effort. Luck lifts, holds or supports trunk or limbs, but provides less than half the effort. 2-Substantial/Maximal Assistance-helper does MORE THAN HALF the effort. Luck lifts or holds trunk or limbs and provides more than half the effort. 7-Mkcqlrcnj-faulvm does ALL the effort. Patient does none of the effort to complete the activity. Or, the assistance of 2 or more helpers is required for the patient to complete the activity. If activity was not attempted, code reason: 7-Patient Refused. 9-Not Applicable-not attempted and the patient did not perform the activity before the current illness, exacerbation or injury. 10-Not Attempted due to Environmental Limitations-(lack of equipment, weather restraints, etc.). 88-Not Attempted due to Medical Conditions or Safety Concerns. Bed Mobility: 6 Transfers (B,C,W/C): 6 Gait: 6 Stairs: 6 Indoor Mobility (Ambulation): Independent Stairs: Independent Prior Devices Use: None PT Evaluation-Current Subjective Patient agrees to PT. Objective Patient Orientation: Normal For Age ROM/Strength ROM Lower Extremities bilateral LE WFL Strength Lower Extremities 5/5 grossly bilateral LE Integumentary/Posture Bowel Incontinence: No Bladder Incontinence: No Posture slight trunk flexed posture Neuromuscular (Tone, Coordination, Reflexes) grossly intact Sensory Vision: Wears Glasses Hearing: Functional Transfers Sit to Lying (QC): 6 Lying to Sitting/Side of Bed(Q: 6 Sit to Stand (QC): 6 Gait Mode of Locomotion: Walk Anticipated Mode of Locomotion: Walk Walk 10 feet (QC): 6 Walk 50 ft with 2 Turns(QC): 6 Walk 150 ft (QC): 6 Distance: 500' Gait Assistive Device: None Comments/Gait Description safe and functional with no deviation Balance Sitting Static: Normal Sitting Dynamic: Normal Standing Static: Normal Standing Dynamic: Normal Assessment/Needs 76 y.o. male, is currently at independent [facility] with all gross motor skills and does not require skilled PT intervention. Rehab Potential: Fair PT Plan Treatment/Plan Treatment Plan: Discontinue PT, goals met Treatment Duration: Mar 21, 2022 Frequency: 1 time per week Estimated Hrs Per Day: .25 hour per day Patient and/or Family Agrees t: Yes Discharge Recommendations Therapy Discharge Recommendati: Home & Family Time/GCodes Time In: 858 Time Out: 910 Total Billed Treatment Time: 12 Total Billed Treatment 1 visit EVLow 12 min EUN DOUGLASS PT Mar 21, 2022 09:56
[2022-03-21] MEDS ORDERED: ALLO100T PO (10:59)
[2022-03-21] MEDS ORDERED: METF-399 PO (11:00)
[2022-03-21] MEDS ORDERED: OXYM30SP25 NS (11:02)
[2022-03-21] MEDS ORDERED: IBUP-2473 PO (11:03)
[2022-03-21 11:55] VITALS: BP 179/77
--- NOTE | 2022-03-21 11:57 | Short Stay Summary-Hospitalist ---
History of Present Illness HPI/Chief Complaint Patient is 76-year-old male with past medical history of hypertension who presented to the emergency department after syncopal episode. He states that he woke up and had a normal morning where he ate cunha eggs toast with honey and orange juice. He then felt that his tongue and lips were swelling and was hard to talk. He also had some itching on his hands and head. He washed his hands in very cold water and thought that it helped so decided to take a cold shower. He turned on the water and the next thing he remembers is being on the floor in the shower. It took a minute to come to so he decided to seek evaluation in the emergency department as he thought he was having a stroke as he has had multiple family members have strokes in their 70s. He was admitted for observation and this morning feels back to normal and has no complaints. He is very hopeful for discharge home. 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 Patients Allergies have been reviewed. Allergies Allergies Coded Allergies Penicillins (Unverified Allergy, Mild, 07/27/09) Past Vioaode-Dsqemg-Rdjfev Hx Patient Social History Tobacco Use?: No Use of E-Cig and/or Vaping dev: No Substance use?: No Alcohol Use?: No Pt feels they are or have been: No Immunizations Up To Date Date of Influenza Vaccine: Jul 04, 2019 Second COVID19 Vaccination Andrea: UNKNOWN DATE Tetanus Booster (TDap): Unknown PED Vaccines UTD: Yes Current Status Advance Directives: Yes Advance Directive Location: Copy placed in chart Communicates: Verbally Primary Language: Setswana Preferred Spoken Language: Setswana Sensory deficits: Vision impairment Additional sensory deficits: reading glasses Implanted or Applied Medical D: Orthopedic hardware Past Medical History Surgeries: Adenoidectomy, Gallbladder, Joint Replacement, Orthopedic, Tonsillectomy Hypertension Sexually Transmitted Disease: No Diverticulosis, Pancreatitis, Polyps, Gall Bladder Disease Arthritis, Chronic Back Pain, Gout Diabetes, Non-Insulin dep Blood Disorders: No Family Medical History Diabetes, Hypertension, Stroke Review of Systems Constitutional: No fever, No malaise EENTM: see HPI Respiratory: No cough, No short of breath, No wheezing Cardiovascular: No chest pain, No palpitations; syncope Gastrointestinal: no symptoms reported Genitourinary: no symptoms reported Musculoskeletal: no symptoms reported Skin: see HPI Psychiatric/Neurological: No Symptoms Reported Physical Exam Physical Exam Vital Signs Vital Signs - First Documented 03/20/22 09:37 Temp 36.3 Pulse 85 Resp 16 B/P (MAP) 135/80 (98) Pulse Ox 95 O2 Delivery Room Air Capillary Refill : Less Than 3 Seconds Height, Weight, BMI Height: '" Weight: lbs. oz. kg; 34.11 BMI Method: General Appearance: No Apparent Distress, WD/WN, Obese Eyes: Bilateral Eye Normal Inspection, Bilateral Eye PERRL, Bilateral Eye EOMI HEENT: PERRL/EOMI, Normal ENT Inspection, Moist Mucous Membranes; No Scleral Icterus (L), No Scleral Icterus (R) Neck: Normal Inspection, Supple Respiratory: Lungs Clear, No Accessory Muscle Use, No Respiratory Distress Cardiovascular: Regular Rate, Rhythm, No JVD, No Murmur Gastrointestinal: Normal Bowel Sounds, Non Tender, Soft Back: Normal Inspection, No Vertebral Tenderness Extremity: Normal Capillary Refill, Normal Range of Motion Neurologic/Psychiatric: Alert, Oriented x3, 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 Imaging: Reviewed Imaging Report Imaging [facility] [place] NAME: DEB DEL ANGEL Reina [facility] REC#: [id number] PT STATUS: ADM Kerri : 1945 PHYSICIAN: KARINA HELTON ADMIT DATE: 03/20/22 Signed Date of Exam:03/20/22 CHEST 1 VIEW, AP/PA ONLY EXAM: CHEST 1 VIEW, AP/PA ONLY INDICATION: Chest pain. COMPARISON: 11/04/2019. FINDINGS: Normal heart size and pulmonary vascularity. No dense consolidation, pleural effusion or pneumothorax. No acute osseous findings. IMPRESSION: No acute cardiopulmonary findings. 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
[2022-03-21] MEDS ORDERED: AMLO-251 PO (14:57)
[2022-03-21] MEDS ORDERED: ASPI-999 PO (14:58)
--- NOTE | 2022-03-21 15:00 | Consultation-Cardiology ---
HPI-Cardiology Cardiology Consultation: Date of Consultation 03/21/22 Time Seen by a Provider: 15:00 Date of Admission 03-20-22 Attending Physician Chad Crabtree MD Admitting Physician Admitting Physician: Albina Vyas MD Attending Physician: Albina Vyas MD Consulting Physician Alcon Santiago MD HPI: Chief Complaint: Syncope Mr. Matthew is a 76 yr old male admitted to 427 from the ED. He reports yesterday morning he got up and carried out his morning as usual. He sat down in the chair in his living room to have his coffee. He developed a rash to his ACW and his hands were itching. He states he got up and washed his hands with cold water. He sat back down in the living room and noticed his hands were swelling and he was still itching. He decided to take a cold shower. He reports he was feeling hot and flushed at the time. He reports he was getting in his shower and the next thing he recalls he was on the floor of the shower. He does not know how long he was out for. He denies any dizziness, chest pain or SOB prior to the event. He has had no further episodes. He reports his rash and itching subsided after receiving Benadryl in the ED. He reports he has been up and ambulated with PT without any difficulty. Review of Systems-Cardiology Review of Systems Constitutional: No chills, No fever, No malaise Eyes: No vision change Ears/Nose/Throat: No epistaxis Respiratory: As described under HPI Cardiovascular: As described under HPI Gastrointestinal: No constipation, No diarrhea, No nausea, No vomiting Genitourinary: No dysuria, No hematuria Musculoskeletal: no symptoms reported Skin: other (abrasion to right story following fall) Psychiatric/Neurological: syncope; No anxiety, No depression, No seizure, No focal weakness Hematologic: No bleeding abnormalities WXF-Atgmny-Ietbsy Hx Patient Social History Have you traveled recently?: No Alcohol Use?: No Pt feels they are or have been: No Immunizations Up To Date Tetanus Booster (TDap): Unknown Date of Influenza Vaccine: Jul 04, 2019 Past Medical History PMH As described under Assessment. Family Medical History Family Medical History: He reports his father had a CVA in his 70's. No other reported family h/o CAD. Allergies and Home Medications Allergies Coded Allergies: Penicillins (Unverified Allergy, Mild, 07/27/09) Patient Home Medication List Allopurinol (Allopurinol) 100 Mg Tablet, 200 MG PO HS, (Reported) Entered as Reported by: CARLOS BLOOM on 03/21/22 1059 Last Action: Reviewed Amlodipine Besylate (Amlodipine Besylate) 10 Mg Tablet, 10 MG PO DAILY Prescribed by: DESHAUN PIPER on 03/21/22 1457 Aspirin (Aspirin) 81 Mg Tab.chew, 81 MG PO DAILY Prescribed by: DESHAUN PIPER on 03/21/22 1458 Glimepiride (Glimepiride) 1 Mg Tablet, 1 MG PO DAILY, (Reported) Entered as Reported by: INDIRA FAULKNER on 11/05/19 1445 Last Action: Reviewed Ibuprofen (Ibuprofen) 200 Mg Tablet, 600 MG PO Q8H PRN for PAIN-MILD (1-4), (Reported) Entered as Reported by: CARLOS BLOOM on 03/21/22 1103 Last Action: Reviewed Lisinopril/Hydrochlorothiazide (Lisinopril-Hctz 20-25 mg Tab) 1 Each Tablet, 1 TAB PO DAILY, (Reported) Entered as Reported by: MICHELLE TRACY on 11/04/19 1311 Last Action: Reviewed Metformin HCl (Metformin HCl) 1,000 Mg Tablet, 2,000 MG PO DAILY, (Reported) Entered as Reported by: CARLOS BLOOM on 03/21/22 1100 Last Action: Reviewed Oxymetazoline HCl (Afrin) 0.05 % [place], 1 SPRAY NS HS, (Reported) Entered as Reported by: CARLOS BLOOM on 03/21/22 1102 Last Action: Reviewed Discontinued Medications Aspirin (Aspirin EC) 81 Mg Tablet.dr, 81 MG PO DAILY Discontinued Reason: No Longer Taking Prescribed by: BETH JEAN on 11/05/19 1540 Last Action: Discontinued Ibuprofen (Motrin) 600 Mg Tab, 600 MG PO BID, (Reported) Discontinued Reason: No Longer Taking Entered as Reported by: HUNG OTERO on 07/27/09 1707 Last Action: Discontinued Metoprolol Succinate (Metoprolol Succinate) 25 Mg Tab.er.24h, 25 MG PO DAILY Discontinued Reason: No Longer Taking Prescribed by: BETH JEAN on 11/05/19 1540 Last Action: Discontinued Physical Exam-Cardiology Physical Exam Vital Signs/I&O 03/22/22 03/22/22 03/22/22 03/22/22 00:00 01:00 03:46 07:00 Temp 36.7 36.6 Pulse 84 65 76 68 Resp 18 18 B/P (MAP) 117/63 (81) 129/74 (92) Pulse Ox 97 94 O2 Delivery Room Air Room Air 03/22/22 03/22/22 03/22/22 08:15 08:20 09:47 Temp 37.0 36.0 Pulse 73 82 Resp 19 20 B/P (MAP) 162/75 (104) 157/96 (116) Pulse Ox 93 96 O2 Delivery Room Air Room Air Room Air 03/22/22 00:00 Intake Total 1150 ml Balance 1150 ml Capillary Refill : Less Than 3 Seconds Constitutional: AAO x 3, well-developed, well-nourished HEENT: PERRL, hearing is well preserved, oral hygience is good Neck: No carotid bruit Respiratory: No accessory muscle use, No respiratory distress; chest expansion is symmetric, chest is bilaterally symmetric, lungs clear to auscultation Cardiovascular: regular rate-rhythm; No JVD; S1 and S2 Gastrointestinal: No tender; soft, round, audible bowel sounds Extremities: no lower extremity edema bilateral Neurologic/Psychiatric: grossly intact (moves all extremities) Skin: No rash on exposed areas, No ulcerations on exposed areas Data Review Labs Laboratory Tests 03/21/22 10:51: Glucometer 106 03/21/22 15:55: Glucometer 128H 03/21/22 20:50: Glucometer 156H 03/22/22 05:05: White Blood Count 6.5, Red Blood Count 3.51L, Hemoglobin 10.8L, Hematocrit 33L, Mean Corpuscular Volume 93, Mean Corpuscular Hemoglobin 31, Mean Corpuscular Hemoglobin Concent 33, Red Cell Distribution Width 14.1, Platelet Count 103L, Mean Platelet Volume 10.0, Immature Granulocyte % (Auto) 1, Neutrophils (%) (Auto) 61, Lymphocytes (%) (Auto) 26, Monocytes (%) (Auto) 8, Eosinophils (%) (Auto) 4, Basophils (%) (Auto) 1, Neutrophils # (Auto) 4.0, Lymphocytes # (Auto) 1.7, Monocytes # (Auto) 0.5, Eosinophils # (Auto) 0.3, Basophils # (Auto) 0.0, Immature Granulocyte # (Auto) 0.0, Sodium Level 135, Potassium Level 4.4, Chloride Level 105, Carbon Dioxide Level 21, Anion Gap 9, Blood Urea Nitrogen 41H, Creatinine 1.59H, Estimat Glomerular Filtration Rate 45, BUN/Creatinine Ratio 26, Glucose Level 121H, Calcium Level 9.5, Magnesium Level 1.9 Radiology NAME: DEB MATTHEW MED REC#: [id number] PT STATUS: ADM Kerri : 1945 PHYSICIAN: KARINA HELTON ADMIT DATE: 03/20/22 Signed Date of Exam:03/20/22 CHEST 1 VIEW, AP/PA ONLY EXAM: CHEST 1 VIEW, AP/PA ONLY INDICATION: Chest pain. COMPARISON: 11/04/2019. FINDINGS: Normal heart size and pulmonary vascularity. No dense consolidation, pleural effusion or pneumothorax. No acute osseous findings. IMPRESSION: No acute cardiopulmonary findings. Dictated by: Dictated on workstation # [id number] Dict: 03/20/22 1157 Trans: 03/20/22 173 [id number] Interpreted by: CONTRERAS GUEVARA MD Electronically signed by: CONTRERAS GUEVARA MD 03/20/22 1735 NAME: DEB MATTHEW [facility] REC#: [id number] PT STATUS: ADM Kerri : 1945 PHYSICIAN: KARINA HELTON ADMIT DATE: 03/20/22 Signed Date of Exam:03/20/22 CT HEAD/CERVICAL SPINE WO PROCEDURE: CT head and CT cervical spine without contrast. TECHNIQUE: Multiple contiguous axial images were obtained through the brain and cervical spine without the use of intravenous contrast. Sagittal and coronal reformations through the cervical spine were then performed. Auto Exposure Controls were utilized during the CT exam to meet ALARA standards for radiation dose reduction. INDICATION: Fall. Bilateral hand numbness. Tongue paresthesias. COMPARISON: Cervical spine MRI of 12/16/2015. FINDINGS: CT head without contrast. Moderate generalized parenchymal volume loss. Intracranial vascular calcifications. No intracranial hemorrhage, mass effect, hydrocephalus or extra-axial fluid collections. No CT evidence of a territorial infarction. Osseous structures are intact. Mild mucosal thickening in the left maxillary sinus. The mastoids are clear. CT cervical spine: Normal alignment. Vertebral body heights preserved. Moderate spondylotic changes are greatest at C5-T1. No fractures. Visualized paravertebral soft tissues are unremarkable. Lung apices are clear. IMPRESSION: No acute intracranial or cervical spine CT findings. Chronic findings as above. Dictated by: Dictated on workstation # [id number] Dict: 03/20/22 1148 Trans: 03/20/22 1735 [id number] Interpreted by: OCNTRERAS GUEVARA MD Electronically signed by: CONTRERAS GUEVARA MD 03/20/22 1735 ECG Impression ECG Initial ECG Rhythm: Normal Sinus A/P-Cardiology Assessment/Admission Diagnosis Syncope - undetermined etiology Minimally elevated troponin - undetermined etiology Card cath of 11/05/19: Mild CAD, LVEF 55-60%, normal LVEDP Echo on 11/04/19: LVEF 60-65%, grade 1 griffin dysfunction, RVSP 32 mmHg HTN DM 2 H/O gout Discussion and Recomendations Syncope of undetermined etiology - advise ILR implant to eval for hailee arrhythmia as cause - advise against driving, operating heavy machinery or climbing ladders Acute on chronic renal insufficiency - possibly secondary to vol depletion - stop SHARLENE - Norvasc already started Monitor lab Replace electrolytes as indicated Further recs based on his hospital course CIERRA PHILLIPS Mar 21, 2022 15:00
--- NOTE | 2022-03-21 15:04 | Discharge Inst-Simple/Standard ---
Discharge Inst-Standard Patient Instructions/Follow Up Plan of Care/Instructions/FU: Please continue to take your medications as written. Please follow up with your primary care doctor to follow up this hospital stay. 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 Activity as Tolerated: Yes Discharge Diet: Cardiac Diet Return to The Hospital For: Chest pain, shortness of breath, fever, weakness, if you feel you are getting worse. DESHAUN PIPER MD Mar 21, 2022 15:04
[2022-03-21] MEDS: ENOXAPARIN 40 MG/0.4 ML (LOVENOX) SYR SC SCH (16:05)
[2022-03-21 16:26] VITALS: BP 165/76
--- NOTE | 2022-03-21 18:43 | Consultation-Cardiology ---
HPI-Cardiology Cardiology Consultation: Date of Consultation 03/21/22 Time Seen by a Provider: 17:30 Date of Admission Attending Physician Chad Crabtree MD Admitting Physician Admitting Physician: Albina Vyas MD Attending Physician: Albina Vyas MD Consulting Physician TYRON HOLLOWAY MD, FACP, [facility] HPI: Chief Complaint: Syncope Mr. Matthew is a 76 yr old male admitted to 427 from the ED. He reports yesterday morning he got up and carried out his morning as usual. He sat down in the chair in his living room to have his coffee. He developed a rash to his ACW and his hands were itching. He states he got up and washed his hands with cold water. He sat back down in the living room and noticed his hands were swelling and he was still itching. He decided to take a cold shower. He reports he was feeling hot and flushed at the time. He reports he was getting in his shower and the next thing he recalls he was on the floor of the shower. He does not know how long he was out for. He denies any dizziness, chest pain or SOB prior to the event. He has had no further episodes. He reports his rash and itching subsided after receiving Benadryl in the ED. He reports he has been up and ambulated with PT without any difficulty. Review of Systems-Cardiology Review of Systems Constitutional: No chills, No fever, No malaise Eyes: No vision change Ears/Nose/Throat: No epistaxis Respiratory: As described under HPI Cardiovascular: As described under HPI Gastrointestinal: No constipation, No diarrhea, No nausea, No vomiting Genitourinary: No dysuria, No hematuria Musculoskeletal: no symptoms reported Skin: other (abrasion to right story following fall) Psychiatric/Neurological: syncope; No anxiety, No depression, No seizure, No focal weakness Hematologic: No bleeding abnormalities PMD-Ddbito-Nxyahb Hx Patient Social History Have you traveled recently?: No Alcohol Use?: No Pt feels they are or have been: No Immunizations Up To Date Tetanus Booster (TDap): Unknown Date of Influenza Vaccine: Jul 04, 2019 Past Medical History PMH As described under Assessment. Family Medical History Family Medical History: He reports his father had a CVA in his 70's. No other reported family h/o CAD. Allergies and Home Medications Allergies Coded Allergies: Penicillins (Unverified Allergy, Mild, 07/27/09) Patient Home Medication List Home Medication List Reviewed: Yes Allopurinol (Allopurinol) 100 Mg Tablet, 200 MG PO HS, (Reported) Entered as Reported by: CARLOS BLOOM on 03/21/22 1059 Last Action: Reviewed Amlodipine Besylate (Amlodipine Besylate) 10 Mg Tablet, 10 MG PO DAILY Prescribed by: DESHAUN PIPER on 03/21/22 1457 Aspirin (Aspirin) 81 Mg Tab.chew, 81 MG PO DAILY Prescribed by: DESHAUN PIPER on 03/21/22 1458 Glimepiride (Glimepiride) 1 Mg Tablet, 1 MG PO DAILY, (Reported) Entered as Reported by: INDIRA FAULKNER on 11/05/19 1445 Last Action: Reviewed Ibuprofen (Ibuprofen) 200 Mg Tablet, 600 MG PO Q8H PRN for PAIN-MILD (1-4), (Reported) Entered as Reported by: CARLOS BLOOM on 03/21/22 1103 Last Action: Reviewed Lisinopril/Hydrochlorothiazide (Lisinopril-Hctz 20-25 mg Tab) 1 Each Tablet, 1 TAB PO DAILY, (Reported) Entered as Reported by: MICHELLE TRACY on 11/04/19 1311 Last Action: Reviewed Metformin HCl (Metformin HCl) 1,000 Mg Tablet, 2,000 MG PO DAILY, (Reported) Entered as Reported by: CARLOS BLOOM on 03/21/22 1100 Last Action: Reviewed Oxymetazoline HCl (Afrin) 0.05 % [place], 1 SPRAY NS HS, (Reported) Entered as Reported by: CARLOS BLOOM on 03/21/22 1102 Last Action: Reviewed Discontinued Medications Aspirin (Aspirin EC) 81 Mg Tablet.dr, 81 MG PO DAILY Discontinued Reason: No Longer Taking Prescribed by: BETH JEAN on 11/05/19 1540 Last Action: Discontinued Ibuprofen (Motrin) 600 Mg Tab, 600 MG PO BID, (Reported) Discontinued Reason: No Longer Taking Entered as Reported by: HUNG OTERO on 07/27/09 1707 Last Action: Discontinued Metoprolol Succinate (Metoprolol Succinate) 25 Mg Tab.er.24h, 25 MG PO DAILY Discontinued Reason: No Longer Taking Prescribed by: BETH JEAN on 11/05/19 1540 Last Action: Discontinued Physical Exam-Cardiology Physical Exam Vital Signs/I&O 03/21/22 03/21/22 03/21/22 03/21/22 07:00 07:41 08:00 11:55 Temp 36.8 36.9 Pulse 80 86 72 Resp 19 19 B/P (MAP) 138/80 (99) 179/77 (111) Pulse Ox 97 99 96 O2 Delivery Room Air Room Air Room Air 03/21/22 03/21/22 13:00 16:26 Temp 36.7 Pulse 84 68 Resp 18 B/P (MAP) 165/76 (105) Pulse Ox 95 O2 Delivery Room Air 03/21/22 00:00 Intake Total 600 ml Output Total 750 ml Balance -150 ml Capillary Refill : Less Than 3 Seconds Constitutional: AAO x 3, well-developed, well-nourished HEENT: PERRL, hearing is well preserved, oral hygience is good Neck: No carotid bruit Respiratory: No accessory muscle use, No respiratory distress; chest expansion is symmetric, chest is bilaterally symmetric, lungs clear to auscultation Cardiovascular: regular rate-rhythm; No JVD; S1 and S2 Gastrointestinal: No tender; soft, round, audible bowel sounds Extremities: no lower extremity edema bilateral Neurologic/Psychiatric: grossly intact (moves all extremities) Skin: No rash on exposed areas, No ulcerations on exposed areas Data Review Labs Laboratory Tests 03/20/22 20:28: Glucometer 109 03/21/22 05:36: Glucometer 114H 03/21/22 05:49: White Blood Count 7.0, Red Blood Count 3.73L, Hemoglobin 11.5#L, Hematocrit 34L, Mean Corpuscular Volume 92, Mean Corpuscular Hemoglobin 31, Mean Corpuscular Hemoglobin Concent 34, Red Cell Distribution Width 14.4, Platelet Count 113L, Mean Platelet Volume 10.1, Immature Granulocyte % (Auto) 1, Neutrophils (%) (Auto) 62, Lymphocytes (%) (Auto) 27, Monocytes (%) (Auto) 7, Eosinophils (%) (Auto) 4, Basophils (%) (Auto) 0, Neutrophils # (Auto) 4.3, Lymphocytes # (Auto) 1.9, Monocytes # (Auto) 0.5, Eosinophils # (Auto) 0.3, Basophils # (Auto) 0.0, Immature Granulocyte # (Auto) 0.0, Percent Immature Platelet Fraction 2.2, Sodium Level 139, Potassium Level 4.2, Chloride Level 108H, Carbon Dioxide Level 19L, Anion Gap 12, Blood Urea Nitrogen 45H, Creatinine 1.58H, Estimat Glomerular Filtration Rate 46, BUN/Creatinine Ratio 28, Glucose Level 107H, Calcium Level 9.5, Magnesium Level 1.9 03/21/22 10:51: Glucometer 106 03/21/22 15:55: Glucometer 128H A/P-Cardiology Assessment/Admission Diagnosis Syncope - undetermined etiology Minimally elevated troponin - likely related to marked hypertension Card cath of 11/05/19: Mild CAD, LVEF 55-60%, normal LVEDP Echo on 11/04/19: LVEF 60-65%, grade 1 griffin dysfunction, RVSP 32 mmHg HTN DM 2 H/O gout Discussion and Recomendations Syncope of undetermined etiology - advise ILR implant to eval for arrhythmia as cause - advise against driving, operating heavy machinery or climbing ladders until further outpt f/u Acute on chronic renal insufficiency - possibly secondary to vol depletion - stop SHARLENE - Norvasc already started Monitor lab Replace electrolytes as indicated Further recs based on his hospital course YTRON HOLLOWAY MD FACP [facility] Mar 21, 2022 18:43
[2022-03-21 20:45] VITALS: BP 134/70
[2022-03-22] VITALS: BP 117/63
[2022-03-22 03:46] VITALS: BP 129/74
[2022-03-22 05:23] LABS: BASOPHILS % (AUTO) 1 % (0-10); EOSINOPHILS # (AUTO) 0.3 10^3/uL (0.0-0.3); EOSINOPHILS % (AUTO) 4 % (0-10); HEMATOCRIT 33 % (40-54); HEMOGLOBIN 10.8 g/dL (13.3-17.7); LYMPHOCYTES # (AUTO) 1.7 10^3/uL (1.0-4.0); LYMPHOCYTES % (AUTO) 26 % (12-44); MEAN CORPUSCULAR HEMOGLOBIN 31 pg (25-34); MEAN CORPUSCULAR HGB CONC 33 g/dL (32-36); MEAN CORPUSCULAR VOLUME 93 fL (80-99); MONOCYTES # (AUTO) 0.5 10^3/uL (0.0-1.0); MONOCYTES % (AUTO) 8 % (0-12); NEUTROPHILS % (AUTO) 61 % (42-75); PLATELET COUNT 103 10^3/uL (130-400); WHITE BLOOD COUNT 6.5 10^3/uL (4.3-11.0)
[2022-03-22 05:41] LABS: POTASSIUM 4.4 MMOL/L (3.6-5.0)
[2022-03-22 05:43] LABS: CALCIUM 9.5 MG/DL (8.5-10.1)
[2022-03-22 05:47] LABS: CREATININE SERUM 1.59 MG/DL (0.60-1.30)
[2022-03-22 05:50] LABS: MAGNESIUM 1.9 MG/DL (1.6-2.4)
[2022-03-22] MEDS: POTASSIUM CL 10MEQ/50ML IVPB 50 ML IV SCH (05:56)
[2022-03-22] MEDS: KCL 20 MEQ TAB (K-DUR) PO SCH (05:57)
[2022-03-22] MEDS: MAGNESIUM 1 GM/100 ML IVPB 100 ML IV SCH (05:57)
[2022-03-22] MEDS: inSUlin ASPART (NovoLOG) 1 UNIT/0.01 ML (CHARGE PER UNIT) SC SCH ×2 (05:58→11:36)
[2022-03-22 08:20] VITALS: BP 162/75
[2022-03-22] MEDS: amLODIPine 10 MG (NORVASC) TAB PO SCH (09:13)
[2022-03-22] MEDS ORDERED: LIDOCAINE 1% INJ 20 ML VIAL ONE (09:36)
[2022-03-22 09:47] VITALS: BP 157/96
[2022-03-22] MEDS: SENNOSIDES 8.6 MG (SENOKOT) TAB PO SCH (10:12)
[2022-03-22] MEDS: DOCUSATE SODIUM 100 MG (COLACE) CAP PO SCH (10:12)
--- NOTE | 2022-03-22 10:29 | Progress Note - Cardiology ---
Cardiology SOAP Progress Note Objective: I&O/Vital Signs 03/22/22 03/22/22 03/22/22 03/22/22 01:00 03:46 07:00 08:15 Temp 36.6 Pulse 65 76 68 Resp 18 B/P (MAP) 129/74 (92) Pulse Ox 94 O2 Delivery Room Air Room Air 03/22/22 03/22/22 03/22/22 08:20 09:47 11:58 Temp 37.0 36.0 36.7 Pulse 73 82 81 Resp 19 20 19 B/P (MAP) 162/75 (104) 157/96 (116) 145/69 (94) Pulse Ox 93 96 95 O2 Delivery Room Air Room Air Room Air 03/21/22 23:59 Intake Total 1150 ml Balance 1150 ml Constitutional: AAO x 3, well-developed, well-nourished Respiratory: No accessory muscle use, No respiratory distress; chest expansion is symmetric, chest is bilaterally symmetric, lungs clear to auscultation Cardiovascular: regular rate-rhythm; No JVD; S1 and S2 Gastrointestional: No tender; soft, round, audible bowel sounds Extremities: no lower extremity edema bilateral Neurologic/Psychiatric: grossly intact (moves all extremities) Skin: No rash on exposed areas, No ulcerations on exposed areas Results/Procedures: Labs Laboratory Tests 03/21/22 15:55: Glucometer 128H 03/21/22 20:50: Glucometer 156H 03/22/22 05:05: White Blood Count 6.5, Red Blood Count 3.51L, Hemoglobin 10.8L, Hematocrit 33L, Mean Corpuscular Volume 93, Mean Corpuscular Hemoglobin 31, Mean Corpuscular Hemoglobin Concent 33, Red Cell Distribution Width 14.1, Platelet Count 103L, Mean Platelet Volume 10.0, Immature Granulocyte % (Auto) 1, Neutrophils (%) (Auto) 61, Lymphocytes (%) (Auto) 26, Monocytes (%) (Auto) 8, Eosinophils (%) (Auto) 4, Basophils (%) (Auto) 1, Neutrophils # (Auto) 4.0, Lymphocytes # (Auto) 1.7, Monocytes # (Auto) 0.5, Eosinophils # (Auto) 0.3, Basophils # (Auto) 0.0, Immature Granulocyte # (Auto) 0.0, Sodium Level 135, Potassium Level 4.4, Chloride Level 105, Carbon Dioxide Level 21, Anion Gap 9, Blood Urea Nitrogen 41H, Creatinine 1.59H, Estimat Glomerular Filtration Rate 45, BUN/Creatinine Ratio 26, Glucose Level 121H, Calcium Level 9.5, Magnesium Level 1.9, Triglycerides Level 443H, Cholesterol Level 191, LDL Cholesterol Direct 104, VLDL Cholesterol 89H, HDL Cholesterol 24L 03/22/22 11:33: Glucometer 111H Procedures NAME: DEB DEL ANGEL MED REC#: [id number] PT STATUS: ADM Kerri : 1945 PHYSICIAN: TYRON HOLLOWAY MD, MA, FACP, FACC, FSCAI, CCDS ADMIT DATE: 03/20/22 Draft Date of Exam:03/22/22 US CAROTID GINNY COMPLETE [id number] PROCEDURE: US carotid duplex, bilateral. TECHNIQUE: Multiple real-time grayscale images were obtained over the carotid arteries in various projections, bilaterally. Additional spectral analysis and color Doppler duplex images were also obtained. INDICATION: Syncope. FINDINGS: There is mild plaquing in both carotid bulbs as well as the proximal left ECA. Velocities in the right carotid system are unremarkable. The velocities in the proximal and mid left ICA are consistent with approximately 50 to 69% diameter stenosis. In addition, there is velocity elevation in the left ECA with measurements of 282 cm/s. Both vertebral arteries show antegrade flow. IMPRESSION: Bilateral carotid plaque. Velocity measurements in the left internal carotid artery are consistent with 50 to 69% diameter stenosis. Parameters based on the consensus panel Hatch-Scale and Doppler ultrasound criteria published July 2003, Radiology, Volume 229. DOPPLER (peak systolic velocity M/S Right Left CCA 1.10 1.12 ICA Proximal 0.91 1.35 ICA Mid 0.78 1.45 ICA Distal 0.70 1.02 RATIO 0.83 1.29 ECA 1.15 2.82 VERT 0.59 0.52 Dictated on workstation # [id number] Dict: 03/22/22 1049 Trans: 03/22/22 1055 [id number] Interpreted by: ASAF MCDOWELL MD Electronically signed by: A/P: Assessment: Syncope - undetermined etiology Minimally elevated troponin - likely related to marked hypertension Carotid dz - Carotid u/s of 7-12-22: Bilateral carotid plaque. Velocity measurements in the left internal carotid artery are consistent with 50 to 69% diameter stenosis. - start Plavix Card cath of 11/05/19: Mild CAD, LVEF 55-60%, normal LVEDP Echo on 11/04/19: LVEF 60-65%, grade 1 griffin dysfunction, RVSP 32 mmHg HTN DM 2 H/O gout Plan: Syncope of undetermined etiology - ILR implant to eval for arrhythmia as cause - planned for today - advise against driving, operating heavy machinery or climbing ladders until further outpt f/u Acute on chronic renal insufficiency - improved - possibly secondary to vol depletion - stop SHARLENE - Norvasc already started Carotid dz per u/s of 03-22-22 - start Plavix 75 mg daily Monitor lab Replace electrolytes as indicated CIERRA PHILLIPS Mar 22, 2022 10:29
--- NOTE | 2022-03-22 10:47 | Progress Note - Cardiology ---
Cardiology SOAP Progress Note Subjective: No cp or palp or syncope or shortness of breath No n/v/d Feels well Wishes to go home Objective: I&O/Vital Signs 03/22/22 03/22/22 03/22/22 03/22/22 00:00 01:00 03:46 07:00 Temp 36.7 36.6 Pulse 84 65 76 68 Resp 18 18 B/P (MAP) 117/63 (81) 129/74 (92) Pulse Ox 97 94 O2 Delivery Room Air Room Air 03/22/22 03/22/22 03/22/22 08:15 08:20 09:47 Temp 37.0 36.0 Pulse 73 82 Resp 19 20 B/P (MAP) 162/75 (104) 157/96 (116) Pulse Ox 93 96 O2 Delivery Room Air Room Air Room Air 03/22/22 00:00 Intake Total 1150 ml Balance 1150 ml Constitutional: AAO x 3, well-developed, well-nourished Respiratory: No accessory muscle use, No respiratory distress; chest expansion is symmetric, chest is bilaterally symmetric, lungs clear to auscultation Cardiovascular: regular rate-rhythm; No JVD; S1 and S2 Gastrointestional: No tender; soft, round, audible bowel sounds Extremities: no lower extremity edema bilateral Neurologic/Psychiatric: grossly intact (moves all extremities) Skin: No rash on exposed areas, No ulcerations on exposed areas Results/Procedures: Labs Laboratory Tests 03/21/22 10:51: Glucometer 106 03/21/22 15:55: Glucometer 128H 03/21/22 20:50: Glucometer 156H 03/22/22 05:05: White Blood Count 6.5, Red Blood Count 3.51L, Hemoglobin 10.8L, Hematocrit 33L, Mean Corpuscular Volume 93, Mean Corpuscular Hemoglobin 31, Mean Corpuscular Hemoglobin Concent 33, Red Cell Distribution Width 14.1, Platelet Count 103L, Mean Platelet Volume 10.0, Immature Granulocyte % (Auto) 1, Neutrophils (%) (Auto) 61, Lymphocytes (%) (Auto) 26, Monocytes (%) (Auto) 8, Eosinophils (%) (Auto) 4, Basophils (%) (Auto) 1, Neutrophils # (Auto) 4.0, Lymphocytes # (Auto) 1.7, Monocytes # (Auto) 0.5, Eosinophils # (Auto) 0.3, Basophils # (Auto) 0.0, Immature Granulocyte # (Auto) 0.0, Sodium Level 135, Potassium Level 4.4, Chloride Level 105, Carbon Dioxide Level 21, Anion Gap 9, Blood Urea Nitrogen 41H, Creatinine 1.59H, Estimat Glomerular Filtration Rate 45, BUN/Creatinine Ratio 26, Glucose Level 121H, Calcium Level 9.5, Magnesium Level 1.9 Laboratory Tests 03/21/22 05:49 03/22/22 05:05 A/P: Assessment: Syncope - undetermined etiology - s/p ILR on 03/22/22 Minimally elevated troponin - likely related to marked hypertension - no clinical evidence of ACS Card cath of 11/05/19: Mild CAD, LVEF 55-60%, normal LVEDP Echo on 11/04/19: LVEF 60-65%, grade 1 griffin dysfunction, RVSP 32 mmHg HTN DM 2 H/O gout Plan: Syncope of undetermined etiology - ILR implanted - advised against public driving, operating heavy machinery or climbing ladders until further outpt f/u Acute on chronic renal insufficiency - improved/stable - possibly secondary to vol depletion - stop SHARLENE - Norvasc already started Ok for d/c from cardiac standpoint F/u at our office next week TYRON HOLLOWAY MD FACP FAC CCDS Mar 22, 2022 10:47
--- NOTE | 2022-03-22 10:56 | Diagnostic Imaging Report ---
PROCEDURE: US carotid duplex, bilateral. TECHNIQUE: Multiple real-time grayscale images were obtained over the carotid arteries in various projections, bilaterally. Additional spectral analysis and color Doppler duplex images were also obtained. INDICATION: Syncope. FINDINGS: There is mild plaquing in both carotid bulbs as well as the proximal left ECA. Velocities in the right carotid system are unremarkable. The velocities in the proximal and mid left ICA are consistent with approximately 50 to 69% diameter stenosis. In addition, there is velocity elevation in the left ECA with measurements of 282 cm/s. Both vertebral arteries show antegrade flow. IMPRESSION: Bilateral carotid plaque. Velocity measurements in the left internal carotid artery are consistent with 50 to 69% diameter stenosis. Parameters based on the consensus panel Hatch-Scale and Doppler ultrasound criteria published July 2003, Radiology, Volume 229. DOPPLER (peak systolic velocity M/S Right Left CCA 1.10 1.12 ICA Proximal 0.91 1.35 ICA Mid 0.78 1.45 ICA Distal 0.70 1.02 RATIO 0.83 1.29 ECA 1.15 2.82 VERT 0.59 0.52 Dictated by: Dictated on workstation # [id number]
[2022-03-22] MEDS ORDERED: ATOR40TA PO (11:45)
[2022-03-22 11:53] LABS: CHOLESTEROL 191 MG/DL (< 200); HDL CHOLESTEROL 24 MG/DL (40-60); TRIGLYCERIDES 443 MG/DL (<150); VLDL CHOLESTEROL 89 MG/DL (5-40)
[2022-03-22 11:58] VITALS: BP 145/69
[2022-03-22] MEDS ORDERED: CLOPIDOGREL 75 MG (PLAVIX) TABLET PO NR (12:30)
[2022-03-22] MEDS ORDERED: CLOP75TA69 PO (12:31)
--- NOTE | 2022-03-22 15:04 | OPERATIVE REPORT ---
DATE OF SERVICE: 03/22/2022 PREOPERATIVE DIAGNOSIS: Syncope. POSTOPERATIVE DIAGNOSIS: Syncope. PROCEDURE: Implantable loop recorder implantation. INDICATIONS: The patient is a 76-year-old gentleman who had an episode of syncope. Etiology is unclear. Implantable loop recorder implantation was carried out today after having obtained an informed consent. DESCRIPTION OF PROCEDURE: [facility] The left prepectoral area was prepared and draped in the usual sterile fashion. Lidocaine 1% was used for local anesthesia. The tools provided with the [employer] LINQ device were used to make a subcutaneous pocket anterior to the left fourth intercostal space into which the device was placed. The wound edges were closed using Steri-Strips and Dermabond. He tolerated the procedure well. The serial number of the device is [id number]. Job ID: [id number] DocumentID: [id number] Dictated Date: 03/22/2022 10:31:51 Literacy Specialist Date: 03/22/2022 15:03:22 Dictated By: TYRON HOLLOWAY MD, MA, FACP, FACC,
--- NOTE | 2022-03-22 22:32 | Discharge Summary ---
Discharge Summary Hospital Course Problems/Dx: (1) Syncope (2) Acute kidney injury Status: Acute (3) Elevated troponin I level Status: Acute (4) Dehydration, moderate Status: Acute Hospital Course Date of Admission: Mar 20, 2022 at 13:05 Admission Diagnosis : Family Physician/Provider: Chad Crabtree MD Date of Discharge: 03/22/22 Discharge Diagnosis: [ ] Hospital Course: [ ] Labs and Pending Lab Test: Laboratory Tests 03/22/22 05:05: White Blood Count 6.5, Red Blood Count 3.51L, Hemoglobin 10.8L, Hematocrit 33L, Mean Corpuscular Volume 93, Mean Corpuscular Hemoglobin 31, Mean Corpuscular Hemoglobin Concent 33, Red Cell Distribution Width 14.1, Platelet Count 103L, Mean Platelet Volume 10.0, Immature Granulocyte % (Auto) 1, Neutrophils (%) (Auto) 61, Lymphocytes (%) (Auto) 26, Monocytes (%) (Auto) 8, Eosinophils (%) (Auto) 4, Basophils (%) (Auto) 1, Neutrophils # (Auto) 4.0, Lymphocytes # (Auto) 1.7, Monocytes # (Auto) 0.5, Eosinophils # (Auto) 0.3, Basophils # (Auto) 0.0, Immature Granulocyte # (Auto) 0.0, Sodium Level 135, Potassium Level 4.4, Chloride Level 105, Carbon Dioxide Level 21, Anion Gap 9, Blood Urea Nitrogen 41H, Creatinine 1.59H, Estimat Glomerular Filtration Rate 45, BUN/Creatinine Ratio 26, Glucose Level 121H, Calcium Level 9.5, Magnesium Level 1.9, Triglycerides Level 443H, Cholesterol Level 191, LDL Cholesterol Direct 104, VLDL Cholesterol 89H, HDL Cholesterol 24L 03/22/22 11:33: Glucometer 111H Home Meds Active Plavix (Clopidogrel Bisulfate) 75 Mg Tablet 75 Mg PO DAILY 30 Days Lipitor (Atorvastatin Calcium) 40 Mg Tablet 40 Mg PO HS 30 Days Aspirin 81 Mg Tab.chew 81 Mg PO DAILY Amlodipine Besylate 10 Mg Tablet 10 Mg PO DAILY Reported Ibuprofen 200 Mg Tablet 600 Mg PO Q8H PRN TAKES 3 (200MG) TABS Afrin (Oxymetazoline HCl) 0.05 % [place]man 1 Wittman NS HS Metformin HCl 1,000 Mg Tablet 2,000 Mg PO DAILY TAKES 2 (1000MG) TABS Allopurinol 100 Mg Tablet 200 Mg PO HS TAKES 2 (100MG) TABS Glimepiride 1 Mg Tablet 1 Mg PO DAILY Discharge Instructions Discharge Diet: Cardiac Diet Activity as Tolerated: Yes Discharge Physical Examination Vital Signs Vital Signs Date Time Temp Pulse Resp B/P (MAP) Pulse Ox O2 Delivery O2 Flow Rate FiO2 03/22/22 11:58 36.7 81 19 145/69 (94) 95 Room Air Allergies: Coded Allergies: Penicillins (Unverified Allergy, Mild, 07/27/09) Discharge Summary Date of Admission Mar 20, 2022 at 13:05 Date of Discharge Mar 22, 2022 at 12:41 Discharge Date: Mar 21, 2022 Discharge Time: 12:41 Admission Diagnosis Syncope Angioedema Discharge Diagnosis (1) Syncope (2) Acute kidney injury Status: Acute (3) Elevated troponin I level Status: Acute (4) Dehydration, moderate Status: Acute EARNEST OCHOA MD Mar 22, 2022 22:32
[2022-03-23] MEDS ORDERED: CLOPIDOGREL 75 MG (PLAVIX) TABLET PO SCH (09:00)
== END 2022-03-22 12:41 | disposition home or self-care (01) ==
LOC: EDUNIT# 09:35 → ER 09:36 → 4TH 13:05
PROVIDERS: ADMIT Internal Medicine; ATTEND Internal Medicine
DX: R55 Syncope and collapse (principal); T78.3XXA Angioneurotic edema, initial encounter; N17.9 Acute kidney failure, unspecified; E86.0 Dehydration; I12.9 Hypertensive chronic kidney disease with stage 1 through stage 4 chronic kidney disease, or unspecified chronic kidney disease; E11.22 Type 2 diabetes mellitus with diabetic chronic kidney disease; N18.9 Chronic kidney disease, unspecified; Z20.822 Contact with and (suspected) exposure to COVID-19; I65.23 Occlusion and stenosis of bilateral carotid arteries; E78.5 Hyperlipidemia, unspecified; M10.9 Gout, unspecified; Z79.84 Long term (current) use of oral hypoglycemic drugs; Z79.82 Long term (current) use of aspirin; Z88.0 Allergy status to penicillin; Z23 Encounter for immunization
CPT/HCPCS: 33285; 70450; 71045; 72125; 80048 ×2; 80053; 80061; 82947 ×3; 83735 ×2; 84484; 85025 ×3; 87636; 93005; 93880; 96372 ×2; 97161; 97165; 99284; C1764; 36415; 90715; G0378

== ENCOUNTER 2022-11-12 12:15 | Inpatient (IN) | payer MEDICARE, OTHER ==
[~2022-11-12] VITALS: Ht 187 cm; Wt 115.2 kg
[~2022-11-12 12:15] MED LIST changes: +ALLO100T PO; +AMLO-251 PO; +ASPI-999 PO; +CLOP-31 PO; +IBUP-2473 PO; +METF-399 PO; +OXYM30SP25 NS
[2022-11-12] MEDS ORDERED: diphenhydrAMINE 50 MG/ML INJ (BENADRYL) ONE (12:22)
[2022-11-12] MEDS ORDERED: EPINEPHrine INJECTION 1 MG/ML AMP ONE (12:22)
--- NOTE | 2022-11-12 12:34 | ED General ---
General Chief Complaint: Allergic Reaction Stated Complaint: ALLERGIC REACTION, TROUBLE BREATHING,FALL Source of Information: Patient, Family (son) Exam Limitations: No Limitations History of Present Illness Date Seen by Provider: Nov 12, 2022 Time Seen by Provider: 12:07 Initial Comments 77-year-old male presents to the emergency department today for possible allergic reaction. His son is at the bedside and states he has had this happen to him several times in the past although previously had been more mild. Symptoms include lip swelling, skin rash and itching. Currently patient states he started to have skin rash, itching and lip swelling, tongue swelling at 8 AM. It progressed and became worse about 30 minutes ago causing the patient to fall down. His son states he began vomiting. They did give him Benadryl about 2 hours prior to arrival and states this made him sleepy. Arrival patient planes of lip swelling, itchiness and is extremely somnolent. He does complain of nausea and vomited once prior to getting to the room. He feels slightly short of breath. He feels like his tongue was swollen earlier but it is gone down currently. No new medications or exposures. He is on amlodipine for blood pressure and multiple diabetic medications taken orally. Has any changes in this. No new soaps, creams or detergents All other systems reviewed and negative except documented per HPI. Voice recognition software was used to help create this chart Allergies and Home Medications Allergies Coded Allergies: Penicillins (Unverified Allergy, Mild, 07/27/09) Patient Home Medication List Home Medication List Reviewed: Yes Allopurinol (Allopurinol) 100 Mg Tablet, 200 MG PO HS, (Reported) Entered as Reported by: CARLOS BLOOM on 03/21/22 1059 Amlodipine Besylate (Amlodipine Besylate) 10 Mg Tablet, 10 MG PO DAILY Prescribed by: DESHAUN PIPER on 03/21/22 1457 Aspirin (Aspirin) 81 Mg Tab.chew, 81 MG PO DAILY Prescribed by: DESHAUN PIPER on 03/21/22 1458 Atorvastatin Calcium (Lipitor) 40 Mg Tablet, 40 MG PO HS Prescribed by: EARNEST OCHOA on 03/22/22 1145 Clopidogrel Bisulfate (Plavix) 75 Mg Tablet, 75 MG PO DAILY Prescribed by: Martha Stark on 03/22/22 1231 Glimepiride (Glimepiride) 1 Mg Tablet, 1 MG PO DAILY, (Reported) Entered as Reported by: INDIRA FAULKNER on 11/05/19 1445 Ibuprofen (Ibuprofen) 200 Mg Tablet, 600 MG PO Q8H PRN for PAIN-MILD (1-4), (Reported) Entered as Reported by: CARLOS BLOOM on 03/21/22 1103 Metformin HCl (Metformin HCl) 1,000 Mg Tablet, 2,000 MG PO DAILY, (Reported) Entered as Reported by: CARLOS BLOOM on 03/21/22 1100 Oxymetazoline HCl (Afrin) 0.05 % [place], 1 SPRAY NS HS, (Reported) Entered as Reported by: CARLOS BLOOM on 03/21/22 1102 Review of Systems Review of Systems Constitutional: no symptoms reported Past Qkzijsd-Girdnv-Xsthej Hx Patient Social History Tobacco Use?: No Substance use?: No Alcohol Use?: No Pt feels they are or have been: No Immunizations Up To Date Tetanus Booster (TDap): Unknown PED Vaccines UTD: Yes First/Initial COVID19 Vaccinat: UNKNOWN DATE Second COVID19 Vaccination Andrea: UNKNOWN DATE Third COVID19 Vaccination Date: UNKNOWN DATE Past Medical History Surgery/Hospitalization HX: gall bladder, heart cath - clean, tossilectomy,bilat hip replacement, htn, dm2, high cholesterol. Surgeries: Yes (BILATERAL KNEE REPLACEMENTS;COLONOSCOPY/POLYPECTOMIES 2006) Adenoidectomy, Gallbladder, Joint Replacement, Orthopedic, Tonsillectomy Respiratory: No Cardiac: Yes Hypertension Neurological: No Reproductive Disorders: No Sexually Transmitted Disease: No Genitourinary: Yes (E.D.) Gastrointestinal: Yes (S/P CHOLECYSTECTOMY;COLONOSCOPY 2006--POLYPECTOMY, DIVERTICULOSIS) Diverticulosis, Pancreatitis, Polyps, Gall Bladder Disease Musculoskeletal: Yes (BILATERAL KNEE REPLACEMENTS; CHRONIC LOW BACK PAIN ) Arthritis, Chronic Back Pain, Gout Endocrine: Yes Diabetes, Non-Insulin dep HEENT: No Cancer: No Psychosocial: No Integumentary: No Blood Disorders: No Family Medical History Reviewed Nursing Family Hx No Pertinent Family Hx, Diabetes, Hypertension, Stroke Physical Exam Vital Signs Vital Signs - First Documented 11/12/22 12:15 Temp 35.6 Pulse 115 Resp 18 B/P (MAP) 124/72 (89) Pulse Ox 92 O2 Delivery Room Air Capillary Refill : Height, Weight, BMI Height: '" Weight: lbs. oz. kg; 34.11 BMI Method: General Appearance: Other Eyes: Bilateral Eye Normal Inspection (Somnolent), Bilateral Eye PERRL, Bilateral Eye EOMI HEENT: Pharynx Normal, Other (Tongue is normal, nonswollen. Bilateral lips are swollen. Upper lip has an abrasion.) Neck: Normal Inspection, Non Tender, Supple Respiratory: Chest Non Tender, Normal Breath Sounds, No Accessory Muscle Use, No Respiratory Distress, Other (Slight tachypnea) Cardiovascular: No Murmur, Normal Peripheral Pulses, Tachycardia Gastrointestinal: Normal Bowel Sounds, No Organomegaly, No Pulsatile Mass, Non Tender, Soft Back: Normal Inspection, No Vertebral Tenderness Extremity: Normal Capillary Refill, Other (Diffuse erythematous rash bilateral upper and lower extremities and the trunk) Neurologic/Psychiatric: Alert, Oriented x3, No Motor/Sensory Deficits, Normal Mood/Affect, bioassayist II-XII Norm as Tested Skin: Other (Diffuse erythematous rash bilateral upper and lower extremities, trunk and face) Progress/Results/Core Measures Suspected Sepsis SIRS Temperature: Pulse: Respiratory Rate: Laboratory Tests 11/12/22 12:30: White Blood Count 27.5H Blood Pressure / Mean: Laboratory Tests 11/12/22 12:30: Creatinine 2.65H, Platelet Count 241, Total Bilirubin 0.8 Results/Orders Lab Results Laboratory Tests Test 11/12/22 12:28 11/12/22 12:30 Range/Units Glucometer 371 H 70-110 MG/DL White Blood Count 27.5 H 4.3-11.0 10^3/uL Red Blood Count 5.48 4.30-5.52 10^6/uL Hemoglobin 16.6 13.3-17.7 g/dL Hematocrit 49 40-54 % Mean Corpuscular Volume 90 80-99 fL Mean Corpuscular Hemoglobin 30 25-34 pg Mean Corpuscular Hemoglobin Concent 34 32-36 g/dL Red Cell Distribution Width 14.7 H 10.0-14.5 % Platelet Count 241 130-400 10^3/uL Mean Platelet Volume 10.2 9.0-12.2 fL Immature Granulocyte % (Auto) 1 % Neutrophils (%) (Auto) 85 H 42-75 % Lymphocytes (%) (Auto) 12 12-44 % Monocytes (%) (Auto) 2 0-12 % Eosinophils (%) (Auto) 0 0-10 % Basophils (%) (Auto) 0 0-10 % Neutrophils # (Auto) 23.4 H 1.8-7.8 10^3/uL Lymphocytes # (Auto) 3.3 1.0-4.0 10^3/uL Monocytes # (Auto) 0.4 0.0-1.0 10^3/uL Eosinophils # (Auto) 0.1 0.0-0.3 10^3/uL Basophils # (Auto) 0.1 0.0-0.1 10^3/uL Immature Granulocyte # (Auto) 0.3 H 0.0-0.1 10^3/uL Neutrophils % (Manual) 78 % Lymphocytes % (Manual) 9 % Monocytes % (Manual) 1 % Eosinophils % (Manual) 0 % Basophils % (Manual) 0 % Band Neutrophils 12 % Blood Morphology Comment NORMAL Sodium Level 137 135-145 MMOL/L Potassium Level 4.2 3.6-5.0 MMOL/L Chloride Level 105 98-107 MMOL/L Carbon Dioxide Level 9 *L 21-32 MMOL/L Anion Gap 23 H 5-14 MMOL/L Blood Urea Nitrogen 36 H 7-18 MG/DL Creatinine 2.65 H 0.60-1.30 MG/DL Estimat Glomerular Filtration Rate 24 BUN/Creatinine Ratio 14 Glucose Level 407 *H 70-105 MG/DL Calcium Level 9.9 8.5-10.1 MG/DL Corrected Calcium 9.8 8.5-10.1 MG/DL Total Bilirubin 0.8 0.1-1.0 MG/DL Aspartate Amino Transf (AST/SGOT) 17 5-34 U/L Alanine Aminotransferase (ALT/SGPT) 13 0-55 U/L Alkaline Phosphatase 156 H 40-136 U/L Total Protein 6.9 6.4-8.2 GM/DL Albumin 4.1 3.2-4.5 GM/DL My Orders Orders - JEFF RIVERA DO Diphenhydramine Injection (Benadryl Inje (11/12/22 12:22) Epinephrine 1 Mg Injection (Adrenalin I (11/12/22 12:22) Comprehensive Metabolic Panel (11/12/22 12:28) Ct Head Wo (11/12/22 12:28) Cbc With Automated Diff (11/12/22 12:28) Methylprednisolone Sod Succ (Solu-Medrol (11/12/22 12:45) Famotidine Injection (Pepcid Injection) (11/12/22 12:45) Manual Differential (11/12/22 12:30) Epinephrine 1 Mg Injection (Adrenalin I (11/12/22 12:45) Diphenhydramine Injection (Benadryl Inje (11/12/22 12:45) Ns Iv 1000 Ml (Sodium Chloride 0.9%) (11/12/22 14:13) Chest 1 View, Ap/Pa Only (11/12/22 14:16) Ua Culture If Indicated (11/12/22 14:16) Diphenhydramine Injection (Benadryl Inje (11/12/22 14:30) Insulin Regular Drip (Myxredlin 100 Unit (11/12/22 14:30) Ed Admission (Communication) (11/12/22 14:26) Medications Given in ED Current Medications Medications Dose Ordered Sig/Gaby Route Start Time Stop Time Status Last Admin Dose Admin Epinephrine HCl 0.4 mg ONCE ONCE IM 11/12/22 12:45 11/12/22 12:46 DC 11/12/22 12:23 0.4 MG Famotidine 20 mg ONCE ONCE IVP 11/12/22 12:45 11/12/22 12:46 DC 11/12/22 13:58 20 MG Methylprednisolone Sodium Succinate 125 mg ONCE ONCE IVP 11/12/22 12:45 11/12/22 12:46 DC 11/12/22 13:58 125 MG Sodium Chloride 1,000 ml @ ud STK-MED ONCE .ROUTE 11/12/22 14:13 11/12/22 14:15 DC 11/12/22 14:17 999 MLS/HR Vital Signs/I&O 11/12/22 11/12/22 11/12/22 12:15 12:23 12:27 Temp 35.6 Pulse 115 115 Resp 18 B/P (MAP) 124/72 (89) 124/72 Pulse Ox 92 O2 Delivery Room Air Room Air Capillary Refill : Critical Care Note Critical Care Total Time (minutes) 60 Departure Communication (Admissions) Patient initially appears to be having an allergic reaction with swollen hands, erythematous rash, vomiting, tachycardia and swollen lips. He is somnolent and had a fall so concern for possible intracranial injury as well. CT scan is negative. He was treated initially with epinephrine, Benadryl, Solu-Medrol and Pepcid. His allergic reaction symptoms improved with resolution of this, hand swelling, vomiting, tachycardia and rash. I did obtain labs because he felt he was more somnolent than he should be given just oral Benadryl. He does appear to be in DKA and has significant leukocytosis. After leukocytosis was reji ntified I went ahead and ordered urinalysis and chest x-ray to search for a source of infection that could possibly be driving hyperglycemia. He is afebrile and nontoxic. He does take oral medications for diabetes but is not on insulin. He is given IV fluids, started on an insulin drip. His bicarb is 9 and he is significantly dehydrated as evidenced by his BUN, creatinine. This is likely related to DKA. I spoke with Dr. Bobby at 1425 and she agrees to admit the patient to the ICU. She agrees with orders provided. I will write bridging orders for DKA protocol. He is admitted in otherwise stable condition. Impression Primary Impression: DKA, type 2 Qualified Codes: E11.10 - Type 2 diabetes mellitus with ketoacidosis without coma Additional Impressions: Leukocytosis Qualified Codes: D72.829 - Elevated white blood cell count, unspecified Allergic reaction Qualified Codes: T78.40XA - Allergy, unspecified, initial encounter Disposition: ADMITTED INPATIENT Condition: Stable Admissions Decision to Admit Reason: Admit from ER (General) Departure-Patient Inst. Referrals: TASHA SIFUENTES MD (PCP/Family) Primary Care Physician JEFF RIVERA DO Nov 12, 2022 12:34
[2022-11-12 12:38] LABS: BASOPHILS # (AUTO) 0.1 10^3/uL (0.0-0.1); BASOPHILS % (AUTO) 0 % (0-10); EOSINOPHILS # (AUTO) 0.1 10^3/uL (0.0-0.3); EOSINOPHILS % (AUTO) 0 % (0-10); HEMATOCRIT 49 % (40-54); HEMOGLOBIN 16.6 g/dL (13.3-17.7); LYMPHOCYTES # (AUTO) 3.3 10^3/uL (1.0-4.0); LYMPHOCYTES % (AUTO) 12 % (12-44); MEAN CORPUSCULAR HEMOGLOBIN 30 pg (25-34); MEAN CORPUSCULAR HGB CONC 34 g/dL (32-36); MEAN CORPUSCULAR VOLUME 90 fL (80-99); MEAN PLATELET VOLUME 10.2 fL (9.0-12.2); MONOCYTES # (AUTO) 0.4 10^3/uL (0.0-1.0); MONOCYTES % (AUTO) 2 % (0-12); NEUTROPHILS # (AUTO) 23.4 10^3/uL (1.8-7.8); NEUTROPHILS % (AUTO) 85 % (42-75); PLATELET COUNT 241 10^3/uL (130-400); WHITE BLOOD COUNT 27.5 10^3/uL (4.3-11.0)
[2022-11-12] MEDS ORDERED: EPINEPHrine INJECTION 1 MG/ML AMP IM ONE (12:45)
[2022-11-12] MEDS ORDERED: diphenhydrAMINE 50 MG/ML INJ (BENADRYL) IM ONE (12:45)
[2022-11-12] MEDS ORDERED: methylPREDNISolone 125 MG (Solu-MEDROL) VIAL IVP ONE (12:45)
[2022-11-12] MEDS ORDERED: FAMOTIDINE 20MG/2ML IV (PEPCID) IVP ONE (12:45)
[2022-11-12 12:50] LABS: ALBUMIN 4.1 GM/DL (3.2-4.5); POTASSIUM 4.2 MMOL/L (3.6-5.0)
[2022-11-12 12:51] LABS: CALCIUM 9.9 MG/DL (8.5-10.1)
[2022-11-12 12:52] LABS: TOTAL PROTEIN 6.9 GM/DL (6.4-8.2)
[2022-11-12 12:54] LABS: BILIRUBIN,TOTAL 0.8 MG/DL (0.1-1.0)
[2022-11-12 12:56] LABS: CREATININE SERUM 2.65 MG/DL (0.60-1.30)
--- NOTE | 2022-11-12 13:13 | Diagnostic Imaging Report ---
PROCEDURE: CT head without contrast. TECHNIQUE: Multiple contiguous axial images were obtained through the brain without the use of intravenous contrast. Auto Exposure Controls were utilized during the CT exam to meet ALARA standards for radiation dose reduction. INDICATION: 77-year-old male, fall, found on floor earlier today. Report of ALLERGIC reaction, difficulty breathing. CORRELATION: CT head 03/20/2022 FINDINGS: Rather prominent, streak artifact particularly at the skull base. Ventricles and sulci, age appropriate. There are scattered areas of decreased attenuation, nonspecific but likely changes of chronic small vessel ischemic disease. There is otherwise normal [place]-white differentiation. No abnormal areas of attenuation to suggest edema from ischemia. There is no midline shift or mass effect. No evidence for acute intracranial hemorrhage or abnormal extra-axial fluid collection. Bony calvarium is intact. Paranasal sinuses are clear. Mastoid air cells also appear clear. Prior bilateral lens replacement. IMPRESSION: 1. Negative for acute intracranial abnormality. Dictated by: Dictated on workstation # [id number]
[2022-11-12 13:16] LABS: BAND NEUTROPHILS 12 %; NEUTROPHILS % (MANUAL) 78 %
[2022-11-12 13:17] LABS: BASOPHILS % (MANUAL) 0 %; EOSINOPHILS % (MANUAL) 0 %; LYMPHOCYTES % (MANUAL) 9 %; MONOCYTES % (MANUAL) 1 %; RBC MORPH NORMAL
[2022-11-12] MEDS ORDERED: NS IV 1000 ML 1,000 ML ONE (14:13)
[2022-11-12] MEDS ORDERED: diphenhydrAMINE 50 MG/ML INJ (BENADRYL) IVP ONE (14:30)
--- NOTE | 2022-11-12 14:42 | Diagnostic Imaging Report ---
INDICATION: leukocytosis, hyperglycemia. TECHNIQUE: Single view chest 2:37 PM. CORRELATION STUDY: 03/20/2022 FINDINGS: Heart size and mediastinum are mildly prominent. Vasculature overall within normal limits. Hypoventilation likely resulting in some atelectasis at the lung bases. No significant infiltrate. Mild bridging ossified thoracic spine. IMPRESSION: 1. Hypoventilation with likely bibasilar atelectasis. Dictated by: Dictated on workstation # [id number]
[2022-11-12 15:21] VITALS: BP 140/62
--- NOTE | 2022-11-12 15:23 | Tele-ICU Progress Note ---
Subjective Date Seen by a Provider: Nov 12, 2022 Subjective/Events-last exam This virtual visit was conducted using real time audio/video. Thank you for asking us to see this patient for respiratory distress due to allergic reaction with swollen lips/tongue and rash. Received Benadryl, Epi., Pepcid and Solumedrol. Also has DKA. PMH: Gout, DM2, HL, HTN. SH: smoking history: N ROS:as in HPI. PE: Obese. Diffuse erythematous rash. VSS. RR 18, HR 115 S. Tach. O2 sat 92% on RA. HEENT: No obvious masses, adenopathy or JVD. Chest: clear to auscultation. CV: RRR S1 S2 No murmur or added sounds. Abd: Non-tender. Bowel sounds Y. : Unremarkable. Vann N. VEHICLE SAFETY INSPECTOR/psychiatric: Grossly intact. No obvious focal findings. Extremities: No edema. Capillary refill < 3 seconds. Skin: unremarkable. Results: Elevated WCC 27.5, BG 407, BUN 36, Creat 2.65. AG 23 Decreased CO2 9. CXR: clear. Available chart/ vitals / labs / images reviewed. Video assessment done using teleICU camera, rest of exam as per RN. A/P: Respiratory distress: Continue present management with PRN meds Monitor for stridor and/or need for intubation. Critical Care: critically ill patient. Cont. IVF, IV insulin. Discussed with CHAVA Manzo. Asked RN to reach out to eICU if any questions or concerns later. Time spent with patient/coordination of care with other health professionals (mins): 15 Sepsis Event Evaluation Height, Weight, BMI Height: '" Weight: lbs. oz. kg; 19.00 BMI Method: Exam Exam Patient acknowledged, consented, and participated in this virtual visit which was conducted using real time audio/video Vital Signs Date Time Temp Pulse Resp B/P (MAP) Pulse Ox O2 Delivery O2 Flow Rate FiO2 11/12/22 12:27 Room Air 11/12/22 12:23 115 124/72 11/12/22 12:15 35.6 115 18 124/72 (89) 92 Room Air Height & Weight Height: '" Weight: lbs. oz. kg; 19.00 BMI Method: General Appearance: Other HEENT: Pharynx Normal, Other (Tongue is normal, nonswollen. Bilateral lips are swollen. Upper lip has an abrasion.) Neck: Normal Inspection, Non Tender, Supple Respiratory: Chest Non Tender, Normal Breath Sounds, No Accessory Muscle Use, No Respiratory Distress, Other (Slight tachypnea) Cardiovascular: No Murmur, Normal Peripheral Pulses, Tachycardia Capillary Refill: Less Than 3 Seconds Extremity: Normal Capillary Refill, Other (Diffuse erythematous rash bilateral upper and lower extremities and the trunk) Neurologic/Psychiatric: Alert, Oriented x3, No Motor/Sensory Deficits, Normal Mood/Affect, enamel drier II-XII Norm as Tested Skin: Other (Diffuse erythematous rash bilateral upper and lower extremities, trunk and face) Results Lab Laboratory Tests 11/12/22 12:30 Assessment/Plan Assessment/Plan See free text. Critical Care: Critically Ill Patient GALINA SHEIKH MD Nov 12, 2022 15:22
[2022-11-12] MEDS ORDERED: NS IV 1000 ML 1,000 ML IV SCH (16:00)
[2022-11-12] MEDS: 1/2 NS IV SOLUTION 1,000 ML IV SCH ×3 (16:04→22:21)
[2022-11-12] MEDS: POTASSIUM CL 10MEQ/50ML IVPB 50 ML IV SCH ×6 (16:09→23:08)
[2022-11-12 16:59] LABS: HEMATOCRIT 43 % (40-54); HEMOGLOBIN 14.8 g/dL (13.3-17.7); MEAN CORPUSCULAR HEMOGLOBIN 31 pg (25-34); MEAN CORPUSCULAR HGB CONC 34 g/dL (32-36); MEAN CORPUSCULAR VOLUME 90 fL (80-99); MEAN PLATELET VOLUME 9.7 fL (9.0-12.2); PLATELET COUNT 203 10^3/uL (130-400); WHITE BLOOD COUNT 24.6 10^3/uL (4.3-11.0)
[2022-11-12 17:12] LABS: POTASSIUM 3.7 MMOL/L (3.6-5.0)
[2022-11-12 17:13] LABS: CALCIUM 9.5 MG/DL (8.5-10.1)
[2022-11-12 17:17] LABS: CREATININE SERUM 2.68 MG/DL (0.60-1.30)
[2022-11-12 17:51] LABS: BILIRUBIN,URINE NEGATIVE (NEGATIVE); CLARITY,URINE CLEAR; COLOR,URINE YELLOW; GLUCOSE, URINE (UA) NEGATIVE (NEGATIVE); KETONES,URINE NEGATIVE (NEGATIVE); LEUKOCYTE ESTERASE ,URINE NEGATIVE (NEGATIVE); NITRITE,URINE NEGATIVE (NEGATIVE); PH,URINE 5.5 (5-9); PROTEIN,URINE 2+ (NEGATIVE)
[2022-11-12 17:58] LABS: BACTERIA,URINE TRACE /HPF; RBC,URINE 0-2 /HPF
[2022-11-12] MEDS ORDERED: LOPERAMIDE 2 MG (IMODIUM) TABLET ONE ×2 (18:19→20:01)
[2022-11-12] MEDS: LOPERAMIDE 2 MG (IMODIUM) TABLET PO PRN ×4 (18:20→23:35)
[2022-11-12 19:21] LABS: CALCIUM 9.6 MG/DL (8.5-10.1); CREATININE SERUM 2.64 MG/DL (0.60-1.30); POTASSIUM 4.5 MMOL/L (3.6-5.0)
[2022-11-12] MEDS: D5 1/2 NS 1000 ML IV SOLUTION 1,000 ML IV SCH ×2 (20:10→23:52)
[2022-11-13 00:07] LABS: POTASSIUM 5.2 MMOL/L (3.6-5.0)
[2022-11-13 00:08] LABS: CALCIUM 8.8 MG/DL (8.5-10.1)
[2022-11-13 00:12] LABS: CREATININE SERUM 2.76 MG/DL (0.60-1.30)
[2022-11-13] MEDS: POTASSIUM CL 10MEQ/50ML IVPB 50 ML IV SCH ×3 (01:27→05:37)
[2022-11-13] MEDS: D5 1/2 NS 1000 ML IV SOLUTION 1,000 ML IV SCH ×2 (03:55→08:03)
[2022-11-13] MEDS: 1/2 NS IV SOLUTION 1,000 ML IV SCH ×4 (04:32→22:21)
[2022-11-13 05:23] LABS: BASOPHILS % (AUTO) 0 % (0-10); EOSINOPHILS % (AUTO) 0 % (0-10); HEMATOCRIT 32 % (40-54); HEMOGLOBIN 11.1 g/dL (13.3-17.7); LYMPHOCYTES # (AUTO) 1.5 10^3/uL (1.0-4.0); LYMPHOCYTES % (AUTO) 7 % (12-44); MEAN CORPUSCULAR HGB CONC 35 g/dL (32-36); MEAN CORPUSCULAR VOLUME 88 fL (80-99); MEAN PLATELET VOLUME 9.7 fL (9.0-12.2); MONOCYTES # (AUTO) 0.8 10^3/uL (0.0-1.0); MONOCYTES % (AUTO) 4 % (0-12); NEUTROPHILS # (AUTO) 19.8 10^3/uL (1.8-7.8); NEUTROPHILS % (AUTO) 89 % (42-75); PLATELET COUNT 163 10^3/uL (130-400); WHITE BLOOD COUNT 22.2 10^3/uL (4.3-11.0)
[2022-11-13 05:25] LABS: MEAN CORPUSCULAR HEMOGLOBIN 30 pg (25-34)
[2022-11-13 05:47] LABS: ALBUMIN 3.3 GM/DL (3.2-4.5); BILIRUBIN,TOTAL 0.4 MG/DL (0.1-1.0); CALCIUM 8.9 MG/DL (8.5-10.1); CREATININE SERUM 2.73 MG/DL (0.60-1.30); POTASSIUM 5.2 MMOL/L (3.6-5.0); TOTAL PROTEIN 5.6 GM/DL (6.4-8.2)
[2022-11-13] MEDS ORDERED: OXYMETAZOLINE (AFRIN) 0.05% NA 30 ML BTL NS PRN (08:00)
[2022-11-13 08:23] LABS: POTASSIUM 5.2 MMOL/L (3.6-5.0)
[2022-11-13 08:24] LABS: CALCIUM 8.8 MG/DL (8.5-10.1)
[2022-11-13 08:29] LABS: CREATININE SERUM 2.58 MG/DL (0.60-1.30)
[2022-11-13] MEDS: CLOPIDOGREL 75 MG (PLAVIX) TABLET PO SCH (09:00)
[2022-11-13] MEDS: amLODIPine 10 MG (NORVASC) TAB PO SCH (09:00)
[2022-11-13] MEDS: ASPIRIN 81 MG CHEW (CHILDREN'S ASA) PO SCH (09:00)
[2022-11-13] MEDS: LOPERAMIDE 2 MG (IMODIUM) TABLET PO PRN ×2 (09:04→16:09)
--- NOTE | 2022-11-13 09:18 | History & Physical-Hospitalist ---
History of Present Illness HPI/Chief Complaint Pt is a 77yoCM with a PMH of NIDDMII, CKD, CAD who presented to the ER due to an allergic reaction. He states he has had longstanding issues with idiopathic allergic reactions and normally takes benadryl twie a day to keep this at bay. Yesterday he noticed his hands were more swollen. He is a little unsure and deflects some of his symptoms as well during our conversation. The ER reports he had lip and tongue swelling though he states this was due to falling and hitting his lip though this reportedly predated the fall per ER note. They tried to manage this at home and gave him beneadryl without relief. He also vomited at home. He was SOB as well in the ER. He denies any new medications, foods, or other exposures and states this is how this alwasy happens. He was someone somnolent so labs were checked and he was found to be in DKA. He reports having afew very high sugar meals over the past couple of days that he thinks prompted this. He also complains of diarrhea which started yesterday. Source: patient Date Seen 11/13/22 Time Seen by a Provider: 08:40 Attending Physician Chad Crabtree MD PCP Admitting Physician: Deshaun Hernadez MD Attending Physician: Deshaun Hernadez MD Referring Physician Date of Admission Nov 12, 2022 at 14:25 Home Medications & Allergies Home Medications Reviewed patient Home Medication Reconciliation performed by pharmacy medication reconciliations validation technician and/or nursing. Patients Allergies have been reviewed. Allergies Allergies Coded Allergies Penicillins (Unverified Allergy, Mild, 07/27/09) Past Wsrxjjd-Llwufb-Yzzasy Hx Patient Social History Employed/Student: retired Tobacco Use?: No Use of E-Cig and/or Vaping dev: No Substance use?: No Alcohol Use?: No Pt feels they are or have been: No Immunizations Up To Date Date of Influenza Vaccine: Jul 04, 2019 First/Initial COVID19 Vaccinat: UNKNOWN DATE Second COVID19 Vaccination Andrea: UNKNOWN DATE Tetanus Booster (TDap): Unknown PED Vaccines UTD: Yes Current Status Advance Directives: No Communicates: Verbally Primary Language: [place] Preferred Spoken Language: [place] Is interpretation needed?: No Implanted or Applied Medical D: None Past Medical History Surgeries: Adenoidectomy, Gallbladder, Joint Replacement, Orthopedic, Tonsillectomy Hypertension Sexually Transmitted Disease: No Diverticulosis, Pancreatitis, Polyps, Gall Bladder Disease Arthritis, Chronic Back Pain, Gout Diabetes, Non-Insulin dep Blood Disorders: No Family Medical History Reviewed Nursing Family Hx No Pertinent Family Hx, Diabetes, Hypertension, Stroke Review of Systems Constitutional: see HPI Physical Exam Physical Exam Vital Signs Vital Signs - First Documented 11/12/22 12:15 Temp 35.6 Pulse 115 Resp 18 B/P (MAP) 124/72 (89) Pulse Ox 92 O2 Delivery Room Air Capillary Refill : Less Than 3 Seconds Height, Weight, BMI Height: '" Weight: lbs. oz. kg; 32.85 BMI Method: General Appearance: No Apparent Distress, WD/WN HEENT: PERRL/EOMI, Moist Mucous Membranes, Other (some periorbital edema, very mild) Respiratory: Lungs Clear, No Accessory Muscle Use, No Respiratory Distress Cardiovascular: No JVD, No Murmur, Tachycardia (100-105) Gastrointestinal: Normal Bowel Sounds, Non Tender, Soft; No Distended, No Guarding Extremity: No Calf Tenderness, No Pedal Edema, Swelling (of both hands) Neurologic/Psychiatric: Alert, Oriented x3, Normal Mood/Affect Skin: Normal Color, Warm/Dry Results Results/Procedures Labs Laboratory Tests 11/12/22 12:30 11/12/22 16:51 11/12/22 23:40 11/13/22 05:09 11/13/22 07:58 11/13/22 15:12 11/14/22 04:00 Patient resulted labs reviewed. Imaging: Reviewed Imaging Report Imaging [facility], [place] NAME: DEB DEL ANGEL Reina [facility] REC#: [id number] PT STATUS: ADM IN : 1945 PHYSICIAN: JEFF RIVERA DO ADMIT DATE: 11/12/22/ICU Signed Date of Exam:11/12/22 CT HEAD WO PROCEDURE: CT head without contrast. TECHNIQUE: Multiple contiguous axial images were obtained through the brain without the use of intravenous contrast. Auto Exposure Controls were utilized during the CT exam to meet ALARA standards for radiation dose reduction. INDICATION: 77-year-old male, fall, found on floor earlier today. Report of ALLERGIC reaction, difficulty breathing. CORRELATION: CT head 03/20/2022 FINDINGS: Rather prominent, streak artifact particularly at the skull base. Ventricles and sulci, age appropriate. There are scattered areas of decreased attenuation, nonspecific but likely changes of chronic small vessel ischemic disease. There is otherwise normal [place]-white differentiation. No abnormal areas of attenuation to suggest edema from ischemia. There is no midline shift or mass effect. No evidence for acute intracranial hemorrhage or abnormal extra-axial fluid collection. Bony calvarium is intact. Paranasal sinuses are clear. Mastoid air cells also appear clear. Prior bilateral lens replacement. IMPRESSION: 1. Negative for acute intracranial abnormality. Dictated by: Dictated on workstation # [id number] Dict: 11/12/22 1310 Trans: 11/12/22 1511 DO [id number] Interpreted by: BRENNEN DUFFY DO Electronically signed by: BRENNEN DUFFY DO 11/12/22 1511 Assessment/Plan Admission Diagnosis DKA Admission Status: Inpatient Order (span 2 midnights) Reason for Inpatient Admission: see below Assessment and Plan DKA Bicarb 9 on arrival with BS of 407 Improved this AM on insulin gtt Gap now closed transition off insulin gtt due to renal function will just due insulin for now A1c pending Follow up BMP this afternoon Anaphylaxis Resume steroids On room air Due to patient's somnolence with it yesterday will hold benadryl unless symptoms worsen Add claritin Acute on CKD Hyperkalemia Baseline creatinine around 1.7 Will try to get more recent labs results Continue IVF DC potassium Check BMP this PM HTN CAD Carotid Stenosis HLD Continue home meds as appropriate DVT ppx: Lovenox Diagnosis/Problems Diagnosis/Problems (1) DKA, type 2 Status: Acute Qualifiers: Diabetes mellitus complication detail: without coma Qualified Codes: E11.10 - Type 2 diabetes mellitus with ketoacidosis without coma (2) Acute on chronic kidney failure Qualifiers: Chronic kidney disease stage: stage 3 (moderate) Chronic kidney disease stage 3 subtype: stage 3a (GFR 45-59) (3) Hyperkalemia Status: Acute (4) CAD (coronary artery disease) Status: Chronic Qualifiers: Coronary Disease-Associated Artery/Lesion type: [place] artery [place] vs. transplanted heart: [place] heart Associated angina: without angina Qualified Codes: I25.10 - Atherosclerotic heart disease of [place] coronary artery without angina pectoris (5) Essential (primary) hypertension Status: Chronic (6) HLD (hyperlipidemia) Status: Chronic Qualifiers: Hyperlipidemia type: mixed hyperlipidemia Qualified Codes: E78.2 - Mixed hyperlipidemia (7) Non-insulin dependent type 2 diabetes mellitus Status: Chronic (8) Prophylactic measure Status: Chronic (9) Anaphylactic reaction Status: Acute Qualifiers: Encounter type: initial encounter Qualified Codes: T78.2XXA - Anaphylactic shock, unspecified, initial encounter (10) Angioedema Status: Acute Qualifiers: Encounter type: initial encounter Qualified Codes: T78.3XXA - Angioneurotic edema, initial encounter DESHAUN HERNADEZ MD Nov 13, 2022 09:18
--- NOTE | 2022-11-13 09:26 | Tele-ICU Progress Note ---
Subjective Date Seen by a Provider: Nov 13, 2022 Time Seen by a Provider: 09:26 Subjective/Events-last exam (Tele-ICU Physician , consultation) Available chart/ vitals / labs / Images reviewed H&P is from ER notes Patient's information available about PMH, allergy reviewed in EMR. ROS as per chart and RN report Video assessment done using teleICU camera, rest of exam as per RN Discussed with RN. He is a 77-year-old male with past medical history of chronic kidney disease type 2 diabetes mellitus coronary artery disease, chronic cholecystitis and history of pancreatitis reportedly has a chronic longstanding idiopathic allergic reaction I suspect it is a idiopathic chronic recurrent urticaria for which she takes Benadryl twice a day to keep it under control. But the day prior to admission his hands were more swollen than usual and has some rash also which he tried to manage with oral Benadryl at home but his lips and tongue swollen hence he came to the emergency room. He is promptly given epinephrine, Benadryl IV, IV Solu-Medrol and Pepcid with his his symptoms somewhat improved. Also he is found to have a DKA and started on IV fluids and IV insulin. Currently his rash is completely gone but his hands are still swollen bilaterally per RN. He is in no acute distress currently on room air. Tongue and lip swelling also reportedly improved. No stridor present. Impression 1. Recurrence of his idiopathic urticaria. The features of angioneurotic edema. And the symptoms are improving currently. 2. DKA on insulin drip currently improving 3. Chronic kidney disease stable at this point. Recommendations 1. Continue IV fluids 2. Wean off insulin drip hopefully today 3. We will continue IV Pepcid, Benadryl and as needed Solu-Medrol. Coordination of care with primary care physician and bedside consultants. Sepsis Event Evaluation Height, Weight, BMI Height: '" Weight: lbs. oz. kg; 32.85 BMI Method: Exam Exam Patient acknowledged, consented, and participated in this virtual visit which was conducted using real time audio/video Vital Signs Date Time Temp Pulse Resp B/P (MAP) Pulse Ox O2 Delivery O2 Flow Rate FiO2 11/13/22 09:00 112 20 162/91 (116) 96 Room Air 11/13/22 08:00 105 22 168/85 (111) 95 Room Air 11/13/22 07:51 37.5 11/13/22 07:00 99 28 162/83 (106) 94 Room Air 11/13/22 07:00 100 11/13/22 06:00 101 37 153/76 (101) 97 Room Air 11/13/22 05:00 101 16 154/83 (106) 96 Room Air 11/13/22 04:00 106 22 151/78 (102) 96 Room Air 11/13/22 04:00 96 Room Air 11/13/22 03:00 107 16 160/82 (108) 94 Room Air 11/13/22 02:00 107 23 165/78 (107) 95 Room Air 11/13/22 01:07 105 11/13/22 01:00 105 23 165/83 (110) 95 Room Air 11/13/22 00:00 96 Room Air 11/13/22 00:00 104 24 153/75 (101) 95 Room Air 11/12/22 23:00 117 24 156/79 (104) 94 Room Air 11/12/22 22:00 100 24 156/82 (106) 94 Room Air 11/12/22 21:00 98 26 188/82 (117) 94 Room Air 11/12/22 20:00 113 34 94 Room Air 11/12/22 20:00 95 Room Air 11/12/22 19:40 36.2 11/12/22 19:00 96 11/12/22 19:00 95 24 95 Room Air 11/12/22 18:00 107 19 96 Room Air 11/12/22 17:00 95 21 94 Room Air 11/12/22 16:08 98 11/12/22 16:00 98 12 112/79 (90) 97 Room Air 11/12/22 16:00 Room Air 11/12/22 15:21 95 20 140/62 94 11/12/22 12:27 Room Air 11/12/22 12:23 115 124/72 11/12/22 12:15 35.6 115 18 124/72 (89) 92 Room Air I & O 11/13/22 07:00 Intake Total 4380 ml Output Total 925 ml Balance 3455 ml Height & Weight Height: '" Weight: lbs. oz. kg; 32.85 BMI Method: General Appearance: Other HEENT: Pharynx Normal, Other (Tongue is normal, nonswollen. Bilateral lips are swollen. Upper lip has an abrasion.) Neck: Normal Inspection, Non Tender, Supple Respiratory: Chest Non Tender, Normal Breath Sounds, No Accessory Muscle Use, No Respiratory Distress, Other (Slight tachypnea) Cardiovascular: No Murmur, Normal Peripheral Pulses, Tachycardia Capillary Refill: Less Than 3 Seconds Extremity: Normal Capillary Refill, Other (Diffuse erythematous rash bilateral upper and lower extremities and the trunk) Neurologic/Psychiatric: Alert, Oriented x3, No Motor/Sensory Deficits, Normal Mood/Affect, attendance officer II-XII Norm as Tested Skin: Other (Diffuse erythematous rash bilateral upper and lower extremities, trunk and face) Other comments PE PER RN Results Lab Laboratory Tests 11/12/22 08:53 11/12/22 12:30 11/12/22 16:51 11/12/22 23:40 11/13/22 05:09 11/13/22 07:58 Assessment/Plan Assessment/Plan ABOVE Critical Care: Critically Ill Patient Time spent with patient (mins): 15 JOHNNY KENT MD Nov 13, 2022 09:26
[2022-11-13] MEDS ORDERED: methylPREDNISolone 40 MG/ML (Solu-MEDROL) VIAL IV ONE (09:30)
[2022-11-13] MEDS ORDERED: LORATADINE (CLARITIN) 10 MG TAB PO ONE (09:45)
[2022-11-13] MEDS: ENOXAPARIN 40 MG/0.4 ML (LOVENOX) SYR SQ SCH (10:05)
[2022-11-13] MEDS: methylPREDNISolone 40 MG/ML (Solu-MEDROL) VIAL IV SCH ×2 (12:32→17:42)
[2022-11-13 15:33] LABS: POTASSIUM 5.5 MMOL/L (3.6-5.0)
[2022-11-13 15:34] LABS: CALCIUM 9.1 MG/DL (8.5-10.1)
[2022-11-13 15:38] LABS: CREATININE SERUM 2.36 MG/DL (0.60-1.30)
[2022-11-13] MEDS: inSUlin ASPART (NovoLOG) 1 UNIT/0.01 ML (CHARGE PER UNIT) SC SCH ×2 (16:15→20:17)
[2022-11-13] MEDS: ALLOPURINOL 100 MG (ZYLOPRIM) TAB PO SCH (20:09)
[2022-11-14] MEDS: methylPREDNISolone 40 MG/ML (Solu-MEDROL) VIAL IV SCH ×2 (01:09→05:18)
[2022-11-14] MEDS: 1/2 NS IV SOLUTION 1,000 ML IV SCH (01:10)
[2022-11-14 04:08] LABS: HEMATOCRIT 30 % (40-54); HEMOGLOBIN 10.6 g/dL (13.3-17.7); MEAN CORPUSCULAR HEMOGLOBIN 30 pg (25-34); MEAN CORPUSCULAR HGB CONC 35 g/dL (32-36); MEAN CORPUSCULAR VOLUME 87 fL (80-99); PLATELET COUNT 142 10^3/uL (130-400); WHITE BLOOD COUNT 18.2 10^3/uL (4.3-11.0)
[2022-11-14 04:25] LABS: POTASSIUM 5.6 MMOL/L (3.6-5.0)
[2022-11-14 04:26] LABS: CALCIUM 9.4 MG/DL (8.5-10.1)
[2022-11-14 04:31] LABS: CREATININE SERUM 2.29 MG/DL (0.60-1.30)
[2022-11-14] MEDS: inSUlin ASPART (NovoLOG) 1 UNIT/0.01 ML (CHARGE PER UNIT) SC SCH ×4 (05:19→20:15)
[2022-11-14] MEDS: CLOPIDOGREL 75 MG (PLAVIX) TABLET PO SCH (10:02)
[2022-11-14] MEDS: ASPIRIN 81 MG CHEW (CHILDREN'S ASA) PO SCH (10:02)
[2022-11-14] MEDS: amLODIPine 10 MG (NORVASC) TAB PO SCH (10:02)
[2022-11-14] MEDS: ENOXAPARIN 40 MG/0.4 ML (LOVENOX) SYR SQ SCH (10:03)
[2022-11-14] MEDS: LORATADINE (CLARITIN) 10 MG TAB PO SCH (10:03)
--- NOTE | 2022-11-14 10:20 | Progress Note - Hospitalist ---
Subjective HPI/CC On Admission Date Seen by Provider: Nov 14, 2022 Pt is a 77yoCM with a PMH of NIDDMII, CKD, CAD who presented to the ER due to an allergic reaction. He states he has had longstanding issues with idiopathic allergic reactions and normally takes benadryl twie a day to keep this at bay. Yesterday he noticed his hands were more swollen. He is a little unsure and deflects some of his symptoms as well during our conversation. The ER reports he had lip and tongue swelling though he states this was due to falling and hitting his lip though this reportedly predated the fall per ER note. They tried to manage this at home and gave him beneadryl without relief. He also vomited at home. He was SOB as well in the ER. He denies any new medications, foods, or other exposures and states this is how this alwasy happens. He was someone somnolent so labs were checked and he was found to be in DKA. He reports having afew very high sugar meals over the past couple of days that he thinks prompted this. He also complains of diarrhea which started yesterday. Subjective/Events-last exam Pt reports doing better today. Swelling improved but still significant in hands. Objective Exam Vital Signs Vital Signs Date Time Temp Pulse Resp B/P (MAP) Pulse Ox O2 Delivery O2 Flow Rate FiO2 11/14/22 08:14 98 11/14/22 07:45 18 176/87 (116) Room Air 11/14/22 04:56 95 11/14/22 04:00 36.6 Capillary Refill : Less Than 3 Seconds General Appearance: No Apparent Distress Respiratory: Lungs Clear, No Accessory Muscle Use, No Respiratory Distress Neurologic/Psychiatric: Alert, Oriented x3, Depressed Affect Results/Procedures Lab Laboratory Tests 11/13/22 15:12 11/14/22 04:00 Patient resulted labs reviewed. Imaging: Reviewed Imaging Report Assessment/Plan Assessment and Plan Assess & Plan/Chief Complaint DKA- resolved Off gtt since yesterday Doing well Gap now closed due to renal function will just due insulin for now- SSI and Levemir 10 units A1c pending- spoke with Dr Crabtree last A1c 5.7 in July Anaphylaxis Switch to oral steroids On room air Continue claritin Acute on CKD Hyperkalemia Baseline creatinine around 1.7 (1.5 in July with PCP) Continue IVF Potassium 5.6- lasix ordered HTN CAD Carotid Stenosis HLD Continue home meds as appropriate DVT ppx: Lovenox Critical Care Critically Ill Patient Diagnosis/Problems Diagnosis/Problems (1) DKA, type 2 Status: Acute Qualifiers: Diabetes mellitus complication detail: without coma Qualified Codes: E11.10 - Type 2 diabetes mellitus with ketoacidosis without coma (2) Acute on chronic kidney failure Qualifiers: Chronic kidney disease stage: stage 3 (moderate) Chronic kidney disease stage 3 subtype: stage 3a (GFR 45-59) (3) Hyperkalemia Status: Acute (4) CAD (coronary artery disease) Status: Chronic Qualifiers: Coronary Disease-Associated Artery/Lesion type: [place] artery [place] vs. transplanted heart: [place] heart Associated angina: without angina Qualified Codes: I25.10 - Atherosclerotic heart disease of [place] coronary artery without angina pectoris (5) Essential (primary) hypertension Status: Chronic (6) HLD (hyperlipidemia) Status: Chronic Qualifiers: Hyperlipidemia type: mixed hyperlipidemia Qualified Codes: E78.2 - Mixed hyperlipidemia (7) Non-insulin dependent type 2 diabetes mellitus Status: Chronic (8) Prophylactic measure Status: Chronic (9) Anaphylactic reaction Status: Acute Qualifiers: Encounter type: initial encounter Qualified Codes: T78.2XXA - Anaphylactic shock, unspecified, initial encounter (10) Angioedema Status: Acute Qualifiers: Encounter type: initial encounter Qualified Codes: T78.3XXA - Angioneurotic edema, initial encounter DESHAUN PIPER MD Nov 14, 2022 10:20
[2022-11-14] MEDS ORDERED: FUROSEMIDE 40 MG/4 ML INJ (LASIX) IVP NR (10:30)
[2022-11-14] MEDS ORDERED: AMLO-251 PO (10:51)
[2022-11-14] MEDS ORDERED: OXYM15MI22 NSEACH (10:51)
[2022-11-14] MEDS ORDERED: ASPI-1238 PO (10:51)
[2022-11-14] MEDS ORDERED: DIPH25TA65 PO (10:51)
[2022-11-14] MEDS ORDERED: LOPE-175 PO (10:51)
[2022-11-14] MEDS ORDERED: IRBE1TAB43 PO (10:51)
[2022-11-14] MEDS ORDERED: ATOR40TA70 PO (10:51)
[2022-11-14] MEDS: NS IV 1000 ML 1,000 ML IV SCH (12:08)
--- NOTE | 2022-11-14 14:38 | Physical Therapy Evaluation ---
PT Evaluation-General Medical Diagnosis Admission Date Nov 12, 2022 at 14:25 Medical Diagnosis: allergic reaction/trouble breathing Onset Date: Nov 12, 2022 Therapy Diagnosis Therapy Diagnosis: debility Precautions Precautions/Isolations: Standard Precautions Referral Physician: Maricarmen Reason for Referral: Evaluation/Treatment Medical History Pertinent Medical History: CAD, DM, HTN Current History ER secondary to severe allergic reaction Reviewed History: Yes Social History Home: Single Level Current Living Status: Alone Entry Into Home: Stairs With Railing PT Steps Into Home: 3 Prior Prior Level of Function SCALE: Activities may be completed with or without assistive devices. 5-Ajrdaiaaod-znsljem completes the activity by him/herself with no assistance from a helper. 5-Set-up or Clean-up Assistance-helper sets up or cleans up; patient completes activity. [place] assists only prior to or following the activity. 4-Supervision or Touching Assistance-helper provides verbal cues and/or touching/steadying and/or contact guard assistance as patient completes activity. Assistance may be provided throughout the activity or intermittently. 3-Partial/Moderate Assistance-helper does LESS THAN HALF the effort. [place] lifts, holds or supports trunk or limbs, but provides less than half the effort. 2-Substantial/Maximal Assistance-helper does MORE THAN HALF the effort. [place] lifts or holds trunk or limbs and provides more than half the effort. 7-Itppmijqi-ftqfxr does ALL the effort. Patient does none of the effort to complete the activity. Or, the assistance of 2 or more helpers is required for the patient to complete the activity. If activity was not attempted, code reason: 7-Patient Refused. 9-Not Applicable-not attempted and the patient did not perform the activity before the current illness, exacerbation or injury. 10-Not Attempted due to Environmental Limitations-(lack of equipment, weather restraints, etc.). 88-Not Attempted due to Medical Conditions or Safety Concerns. Bed Mobility: 6 Transfers (B,C,W/C): 6 Gait: 6 Stairs: 6 Indoor Mobility (Ambulation): Independent Stairs: Independent Prior Devices Use: None Prior Device Use: FWW PT Evaluation-Current Subjective Patient agrees to PT. He states he just wants to go home. Objective Patient Orientation: Normal For Age ROM/Strength ROM Lower Extremities bilateral LE WFL Strength Lower Extremities 4/5 grossly bilateral LE all planes Integumentary/Posture Bowel Incontinence: No Bladder Incontinence: Vann Cath Posture WFL Neuromuscular (Tone, Coordination, Reflexes) grossly intact Sensory Vision: Functional Hearing: Functional Transfers Sit to Lying (QC): 6 Lying to Sitting/Side of Bed(Q: 6 Sit to Stand (QC): 6 Gait Mode of Locomotion: Walk Anticipated Mode of Locomotion: Walk Walk 10 feet (QC): 6 Walk 50 ft with 2 Turns(QC): 6 Walk 150 ft (QC): 6 Distance: 500' Gait Assistive Device: None Comments/Gait Description safe and functional with no deviation Balance Sitting Static: Normal Sitting Dynamic: Normal Standing Static: Normal Standing Dynamic: Normal Assessment/Needs Patient is currently at independent [facility] with all gross motor skills safely and does not require skilled PT intervention at this time. Rehab Potential: Fair PT Plan Treatment/Plan Treatment Plan: Discontinue PT Treatment Duration: Nov 14, 2022 Frequency: 1 time per week Estimated Hrs Per Day: .25 hour per day Patient and/or Family Agrees t: Yes Time Time In: 1315 Time Out: 1326 DATE: Nov 14, 2022 Total Billed Treatment Time: 11 Total Billed Treatment 1 visit [facility] 11 min EUN DOUGLASS PT Nov 14, 2022 14:38
[2022-11-14] MEDS: ALLOPURINOL 100 MG (ZYLOPRIM) TAB PO SCH (20:05)
[2022-11-15] MEDS: NS IV 1000 ML 1,000 ML IV SCH (00:32)
[2022-11-15 06:01] LABS: HEMATOCRIT 30 % (40-54); HEMOGLOBIN 10.6 g/dL (13.3-17.7); MEAN CORPUSCULAR HEMOGLOBIN 30 pg (25-34); MEAN CORPUSCULAR HGB CONC 35 g/dL (32-36); MEAN CORPUSCULAR VOLUME 87 fL (80-99); MEAN PLATELET VOLUME 10.5 fL (9.0-12.2); PLATELET COUNT 151 10^3/uL (130-400); WHITE BLOOD COUNT 15.3 10^3/uL (4.3-11.0)
[2022-11-15 06:10] LABS: CALCIUM 9.3 MG/DL (8.5-10.1); CREATININE SERUM 2.07 MG/DL (0.60-1.30); POTASSIUM 4.6 MMOL/L (3.6-5.0)
[2022-11-15] MEDS: inSUlin ASPART (NovoLOG) 1 UNIT/0.01 ML (CHARGE PER UNIT) SC SCH ×2 (06:11→11:56)
[2022-11-15] MEDS ORDERED: predniSONE 20 MG TAB PO SCH (07:00)
[2022-11-15] MEDS: LORATADINE (CLARITIN) 10 MG TAB PO SCH (08:26)
[2022-11-15] MEDS: amLODIPine 10 MG (NORVASC) TAB PO SCH (08:26)
[2022-11-15] MEDS: CLOPIDOGREL 75 MG (PLAVIX) TABLET PO SCH (08:26)
[2022-11-15] MEDS: ENOXAPARIN 40 MG/0.4 ML (LOVENOX) SYR SQ SCH (08:26)
--- NOTE | 2022-11-15 10:02 | Discharge Summary ---
Diagnosis/Chief Complaint Date of Admission Nov 12, 2022 at 14:25 Date of Discharge Admission Diagnosis DKA Primary Care Chad Crabtree MD Discharge Diagnosis (1) DKA, type 2 Status: Acute (2) Acute on chronic kidney failure (3) Hyperkalemia Status: Acute (4) CAD (coronary artery disease) Status: Chronic (5) Essential (primary) hypertension Status: Chronic (6) HLD (hyperlipidemia) Status: Chronic (7) Non-insulin dependent type 2 diabetes mellitus Status: Chronic (8) Prophylactic measure Status: Chronic (9) Anaphylactic reaction Status: Acute (10) Angioedema Status: Acute Discharge Summary Discharge Physical Exam Allergies: Coded Allergies: Penicillins (Verified Allergy, Unknown, 11/14/22) PATIENT SAID HE HAD A REACTION WHEN HE WAS A CHILD BUT HAS HAD PENVK MULTIPLE TIMES AN ADULT WITH NO ISSUES Vitals & I&Os Vital Signs Date Time Temp Pulse Resp B/P (MAP) Pulse Ox O2 Delivery O2 Flow Rate FiO2 11/15/22 08:01 36.2 83 18 95 Room Air Hospital Course Labs (last 24 hrs) Laboratory Tests 11/14/22 11:53: Glucometer 169H 11/14/22 15:32: Glucometer 204H 11/14/22 15:41: Beta-Hydroxybutyrate (Chem panel) 0.17 11/14/22 20:09: Glucometer 229H 11/15/22 05:22: White Blood Count 15.3H, Red Blood Count 3.50L, Hemoglobin 10.6L, Hematocrit 30L , Mean Corpuscular Volume 87, Mean Corpuscular Hemoglobin 30, Mean Corpuscular Hemoglobin Concent 35, Red Cell Distribution Width 13.9, Platelet Count 151, Mean Platelet Volume 10.5, Sodium Level 136, Potassium Level 4.6, Chloride Level 107, Carbon Dioxide Level 19L, Anion Gap 10, Blood Urea Nitrogen 48H, Creatinine 2.07H, Estimat Glomerular Filtration Rate 33, BUN/Creatinine Ratio 23, Glucose Level 132H, Calcium Level 9.3 Microbiology 11/12/22 MRSA Screen - Final, Complete MRSA not isolated Patient resulted labs reviewed. Pending Labs Laboratory Tests 11/15/22 05:22: White Blood Count 15.3, Red Blood Count 3.50, Hemoglobin 10.6, Hematocrit 30, Mean Corpuscular Volume 87, Mean Corpuscular Hemoglobin 30, Mean Corpuscular Hemoglobin Concent 35, Red Cell Distribution Width 13.9, Platelet Count 151, Mean Platelet Volume 10.5, Sodium Level 136, Potassium Level 4.6, Chloride Level 107, Carbon Dioxide Level 19, Anion Gap 10, Blood Urea Nitrogen 48, Creatinine 2.07, Estimat Glomerular Filtration Rate 33, BUN/Creatinine Ratio 23, Glucose Level 132, Calcium Level 9.3 Imaging: Reviewed Imaging Report Discharge Home Medications: Active Scripts Active Reported Vicks Sinex (Oxymetazoline HCl) 0.05 % Mist 1-2 Mamou NSEACH HS Imodium A-D (Loperamide HCl) 2 Mg Capsule 2-4 Mg PO UD PRN Benadryl Allergy (Diphenhydramine HCl) 25 Mg Tablet 50 Mg PO HS Aspirin EC (Aspirin) 81 Mg Tablet.dr 81 Mg PO HS Atorvastatin Calcium 40 Mg Tablet 40 Mg PO HS Amlodipine Besylate 10 Mg Tablet 10 Mg PO DAILY Irbesartan-Hctz 300-12.5 mg Tb (Irbesartan/Hydrochlorothiazide) 300 Mg-12.5 Mg Tablet 1 Ea PO DAILY Ibuprofen 200 Mg Tablet 600 Mg PO Q8H PRN TAKES 3 (200MG) TABS Metformin HCl 1,000 Mg Tablet 2,000 Mg PO DAILY TAKES 2 (1000MG) TABS Allopurinol 100 Mg Tablet 200 Mg PO HS TAKES 2 (100MG) TABS Glimepiride 1 Mg Tablet 1 Mg PO DAILY Instructions to patient/family Please see electronic discharge instructions given to patient. Problem Qualifiers (1) DKA, type 2: Diabetes mellitus complication detail: without coma Qualified Codes: E11.10 - Type 2 diabetes mellitus with ketoacidosis without coma (2) Acute on chronic kidney failure: Chronic kidney disease stage: stage 3 (moderate) Chronic kidney disease stage 3 subtype: stage 3a (GFR 45-59) (3) CAD (coronary artery disease): Coronary Disease-Associated Artery/Lesion type: [place] artery [place] vs. transplanted heart: [place] heart Associated angina: without angina Qualified Codes: I25.10 - Atherosclerotic heart disease of [place] coronary artery without angina pectoris (4) HLD (hyperlipidemia): Hyperlipidemia type: mixed hyperlipidemia Qualified Codes: E78.2 - Mixed hyperlipidemia (5) Anaphylactic reaction: Encounter type: initial encounter Qualified Codes: T78.2XXA - Anaphylactic shock, unspecified, initial encounter (6) Angioedema: Encounter type: initial encounter Qualified Codes: T78.3XXA - Angioneurotic edema, initial encounter DESHAUN PIPER MD Nov 15, 2022 10:02
[2022-11-15] MEDS ORDERED: PRD20T PO (10:11)
[2022-11-15] MEDS ORDERED: LORA10TA7 PO (10:11)
[2022-11-15] MEDS ORDERED: METF-399 PO (10:11)
--- NOTE | 2022-11-15 10:13 | Discharge Inst-Simple/Standard ---
Discharge Inst-Standard Discharge Medications New, Converted or Re-Newed RX: Transmitted to Pharmacy Patient Instructions/Follow Up Plan of Care/Instructions/FU: Please continue to take your medications as written. Please follow up with your primary care doctor to follow up this hospital stay. Activity as Tolerated: Yes Discharge Diet: ADA Diet Return to The Hospital For: Chest pain, shortness of breath, fever, weakness, if you feel you are getting worse. DESHAUN PIPER MD Nov 15, 2022 10:13
[2022-11-15] MEDS ORDERED: CATHETER FLUSH 10 ML SYR IVP PRN (10:45)
[2022-11-15] MEDS ORDERED: EPIN0.3P3 IJ (14:30)
[2022-11-15] MEDS ORDERED: ASPIRIN 81 MG CHEW (CHILDREN'S ASA) PO SCH (21:00)
== END 2022-11-15 13:45 | disposition home or self-care (01) | DRG 638 ==
LOC: EDUNIT# 12:15 → ER 12:16 → ICU 14:25 → 4TH 11-14 17:50
PROVIDERS: ADMIT Family Medicine; ATTEND Family Medicine
DX: E11.10 Type 2 diabetes mellitus with ketoacidosis without coma (principal); N17.9 Acute kidney failure, unspecified; L50.1 Idiopathic urticaria; I12.9 Hypertensive chronic kidney disease with stage 1 through stage 4 chronic kidney disease, or unspecified chronic kidney disease; E11.22 Type 2 diabetes mellitus with diabetic chronic kidney disease; N18.9 Chronic kidney disease, unspecified; E87.5 Hyperkalemia; E78.00 Pure hypercholesterolemia, unspecified; M10.9 Gout, unspecified; M19.91 Primary osteoarthritis, unspecified site; Z79.84 Long term (current) use of oral hypoglycemic drugs; Z96.643 Presence of artificial hip joint, bilateral; Z79.82 Long term (current) use of aspirin; Z79.02 Long term (current) use of antithrombotics/antiplatelets; Z79.899 Other long term (current) drug therapy; Z88.0 Allergy status to penicillin
CPT/HCPCS: 36415; 70450; 71045; 80048; 80053; 81000; 82010; 82947; 83036; 83735; 85007; 85025; 85027; 87081

== ENCOUNTER 2023-07-28 14:15 | Emergency (ER) | payer MEDICARE, OTHER ==
[~2023-07-28] VITALS: Ht 185 cm; Wt 109.0 kg
[~2023-07-28 14:15] MED LIST changes: +ATOR40TA70 PO; +DIPH25TA65 PO; +EPIN0.3P3 IJ; +IRBE1TAB43 PO; +LOPE-175 PO; +LORA10TA7 PO; +OXYM15MI22 NSEACH; +PRD20T PO
--- NOTE | 2023-07-28 15:23 | ED General ---
General Chief Complaint: Dizziness/Syncope Stated Complaint: DIZZY/LETHARGIC Nursing Triage Note: PT STATES HE GOT LIGHT HEADED HAD DIARRHEA THEN TOOK A SHOT FROM HIS EPPI PIN ABOUT 1300. DOES NOT KNOW WHAT TRIGGERED THE REACTION, STATES HE IS ALLERGIC TO HONEY, THIS HAPPENED ABOUT 1 YR AGO. DID NOT HAVE ANY HONEY TODAY Source of Information: Patient Exam Limitations: No Limitations History of Present Illness Date Seen by Provider: Jul 28, 2023 Time Seen by Provider: 15:09 Initial Comments This 78-year-old gentleman presents to the emergency room after using his EpiPen for what he presumed to be an allergic reaction. He had a sudden onset of feeling feverish and nauseated. He was in the car at the time. He then felt very weak and could not get out of the car and into the house on his own. His grandson helped him. He was incontinent with diarrhea once he got into the house. He once had a suspected anaphylactic reaction and therefore carried an EpiPen. He presumed this to be an anaphylactic reaction and took the EpiPen at approximately 1300. Unlike his prior episode, he did not have any hives or itching. He now feels relatively normal except for feeling generally weak. He has a pending appointment with his information broker on August 14. Blood sugar this morning was 127. Blood pressure was 137/82 at home. Patient did eat breakfast. He denies any prior episodes. He denies any chest pain or shortness of breath. Allergies and Home Medications Allergies Coded Allergies: Penicillins (Verified Allergy, Unknown, 11/14/22) PATIENT SAID HE HAD A REACTION WHEN HE WAS A CHILD BUT HAS HAD PENVK MULTIPLE TIMES AN ADULT WITH NO ISSUES Patient Home Medication List Home Medication List Reviewed: Yes Allopurinol (Allopurinol) 100 Mg Tablet, 200 MG PO HS, (Reported) Entered as Reported by: CARLOS BLOOM on 03/21/22 1059 Amlodipine Besylate (Amlodipine Besylate) 10 Mg Tablet, 10 MG PO DAILY, (Reported) Entered as Reported by: SADIQ BRADY on 11/14/22 1051 Aspirin (Aspirin EC) 81 Mg Tablet.dr, 81 MG PO HS, (Reported) Entered as Reported by: SADIQ BRADY on 11/14/22 1051 Atorvastatin Calcium (Atorvastatin Calcium) 40 Mg Tablet, 40 MG PO HS, (Reported) Entered as Reported by: SADIQ BRADY on 11/14/22 1051 Diphenhydramine HCl (Benadryl Allergy) 25 Mg Tablet, 50 MG PO HS, (Reported) Entered as Reported by: SADIQ BRADY on 11/14/22 1051 Epinephrine (Epipen 2-Sly) 0.3 Mg/0.3 Ml Auto.injct, 0.3 MG IJ PRN Prescribed by: DESHAUN PIPER on 11/15/22 1430 Glimepiride (Glimepiride) 1 Mg Tablet, 1 MG PO DAILY, (Reported) Entered as Reported by: INDIRA FAULKNER on 11/05/19 1445 Ibuprofen (Ibuprofen) 200 Mg Tablet, 600 MG PO Q8H PRN for PAIN-MILD (1-4), (Reported) Entered as Reported by: CARLOS BLOOM on 03/21/22 1103 Loperamide HCl (Imodium A-D) 2 Mg Capsule, 2-4 MG PO UD PRN for DIARRHEA, (Reported) Entered as Reported by: SADIQ BRADY on 11/14/22 1051 Loratadine (Loratadine) 10 Mg Tablet, 10 MG PO DAILY Prescribed by: DESHAUN PIPER on 11/15/22 1011 Metformin HCl (Metformin HCl) 1,000 Mg Tablet, 2,000 MG PO DAILY Prescribed by: DESHAUN PIPER on 11/15/22 1011 Oxymetazoline HCl (Vicks Sinex) 0.05 % Mist, 1-2 SPRAY NSEACH HS, (Reported) Entered as Reported by: SADIQ BRADY on 11/14/22 1051 Prednisone (Prednisone) 20 Mg Tab, 40 MG PO DAILY@0700 Prescribed by: DESHAUN PIPER on 11/15/22 1011 Review of Systems Review of Systems Constitutional: see HPI EENTM: no symptoms reported Respiratory: no symptoms reported Cardiovascular: see HPI Gastrointestinal: see HPI Genitourinary: no symptoms reported Musculoskeletal: no symptoms reported Skin: no symptoms reported Psychiatric/Neurological: See HPI Hematologic/Lymphatic: No Symptoms Reported Immunological/Allergic: no symptoms reported Past Eylrdhe-Osnkfe-Xdpobo Hx Patient Social History Tobacco Use?: No Substance use?: No Alcohol Use?: No Immunizations Up To Date Tetanus Booster (TDap): Unknown PED Vaccines UTD: Yes Influenza Vaccine Up-to-Date: Yes; Up-to-Date First/Initial COVID19 Vaccinat: YES Second COVID19 Vaccination Andrea: UNKNOWN DATE Third COVID19 Vaccination Date: UNKNOWN DATE Past Medical History Surgery/Hospitalization HX: gall bladder, heart cath - clean, tossilectomy,bilat hip replacement, htn, dm2, high cholesterol. Surgeries: Yes (BILATERAL KNEE REPLACEMENTS;COLONOSCOPY/POLYPECTOMIES 2006) Adenoidectomy, Gallbladder, Joint Replacement (hips), Orthopedic, Tonsillectomy Respiratory: No Cardiac: Yes High Cholesterol, Hypertension Neurological: No Reproductive Disorders: No Sexually Transmitted Disease: No Genitourinary: Yes (E.D.) Renal Failure (chronic kidney disease) Gastrointestinal: Yes (S/P CHOLECYSTECTOMY;COLONOSCOPY 2006--POLYPECTOMY, DIVERTICULOSIS) Diverticulosis, Pancreatitis, Polyps, Gall Bladder Disease Musculoskeletal: Yes (BILATERAL KNEE REPLACEMENTS; CHRONIC LOW BACK PAIN ) Arthritis, Chronic Back Pain, Gout Endocrine: Yes Diabetes, Non-Insulin dep HEENT: No Cancer: No Psychosocial: No Integumentary: No Blood Disorders: No Family Medical History No Pertinent Family Hx, Diabetes, Hypertension, Stroke Physical Exam Vital Signs Vital Signs - First Documented 07/28/23 14:30 Temp 36.1 Pulse 71 Resp 18 B/P (MAP) 141/72 (95) Pulse Ox 98 O2 Delivery Room Air Capillary Refill : Less Than 3 Seconds Height, Weight, BMI Height: '" Weight: lbs. oz. kg; 31.00 BMI Method: General Appearance: No Apparent Distress, WD/WN HEENT: PERRL/EOMI, Normal ENT Inspection Neck: Normal Inspection; No JVD Respiratory: Lungs Clear, Normal Breath Sounds, No Accessory Muscle Use, No Respiratory Distress Cardiovascular: Regular Rate, Rhythm, No Edema, No Murmur Gastrointestinal: Normal Bowel Sounds, Non Tender, Soft; No Distended Extremity: Normal Inspection, No Calf Tenderness, No Pedal Edema Neurologic/Psychiatric: Alert, Oriented x3, No Motor/Sensory Deficits, Normal Mood/Affect, upholstery estimator II-XII Norm as Tested Skin: Normal Color, Warm/Dry Progress/Results/Core Measures Suspected Sepsis SIRS Temperature: Pulse: 71 Respiratory Rate: 18 Laboratory Tests 07/28/23 14:35: White Blood Count 15.0H Blood Pressure 141 /72 Mean: 95 Laboratory Tests 07/28/23 14:35: Creatinine 2.43H, Platelet Count 191, Total Bilirubin 0.5 Results/Orders Lab Results Laboratory Tests Test 07/28/23 14:35 07/28/23 15:39 07/28/23 18:20 07/28/23 18:45 Range/Units White Blood Count 15.0 H 4.3-11.0 10^3/uL Red Blood Count 4.20 L 4.30-5.52 10^6/uL Hemoglobin 12.7 L 13.3-17.7 g/dL Hematocrit 39 L 40-54 % Mean Corpuscular Volume 92 80-99 fL Mean Corpuscular Hemoglobin 30 25-34 pg Mean Corpuscular Hemoglobin Concent 33 32-36 g/dL Red Cell Distribution Width 14.6 H 10.0-14.5 % Platelet Count 191 130-400 10^3/uL Mean Platelet Volume 10.3 9.0-12.2 fL Immature Granulocyte % (Auto) 1 % Neutrophils (%) (Auto) 85 H 42-75 % Lymphocytes (%) (Auto) 8 L 12-44 % Monocytes (%) (Auto) 5 0-12 % Eosinophils (%) (Auto) 1 0-10 % Basophils (%) (Auto) 0 0-10 % Neutrophils # (Auto) 12.6 H 1.8-7.8 X 10^3 Lymphocytes # (Auto) 1.2 1.0-4.0 X 10^3 Monocytes # (Auto) 0.8 0.0-1.0 X 10^3 Eosinophils # (Auto) 0.2 0.0-0.3 10^3/uL Basophils # (Auto) 0.0 0.0-0.1 10^3/uL Immature Granulocyte # (Auto) 0.1 0.0-0.1 10^3/uL Neutrophils % (Manual) 80 % Lymphocytes % (Manual) 13 % Monocytes % (Manual) 6 % Eosinophils % (Manual) 1 % Blood Morphology Comment NORMAL Sodium Level 142 135-145 MMOL/L Potassium Level 3.9 3.6-5.0 MMOL/L Chloride Level 109 H 98-107 MMOL/L Carbon Dioxide Level 20 L 21-32 MMOL/L Anion Gap 13 5-14 MMOL/L Blood Urea Nitrogen 41 H 7-18 MG/DL Creatinine 2.43 H 0.60-1.30 MG/DL Estimat Glomerular Filtration Rate 27 BUN/Creatinine Ratio 17 Glucose Level 135 H 70-105 MG/DL Calcium Level 9.9 8.5-10.1 MG/DL Corrected Calcium 9.8 8.5-10.1 MG/DL Magnesium Level 2.0 1.6-2.4 MG/DL Total Bilirubin 0.5 0.1-1.0 MG/DL Aspartate Amino Transf (AST/SGOT) 12 5-34 U/L Alanine Aminotransferase (ALT/SGPT) 8 0-55 U/L Alkaline Phosphatase 149 H 40-136 U/L Troponin I < 0.028 < 0.028 <0.028 NG/ML C-Reactive Protein High Sensitivity 0.41 0.00-0.50 MG/DL Total Protein 7.1 6.4-8.2 GM/DL Albumin 4.1 3.2-4.5 GM/DL Influenza Type A (RT-PCR) Not Detected Not Detecte Influenza Type B (RT-PCR) Not Detected Not Detecte SARS-CoV-2 RNA (RT-PCR) Not Detected Not Detecte Urine Color YELLOW Urine Clarity CLEAR Urine pH 5.0 5-9 Urine Specific [place] 1.025 H 1.016-1.022 Urine Protein 3+ H NEGATIVE Urine Glucose (UA) NEGATIVE NEGATIVE Urine Ketones TRACE H NEGATIVE Urine Nitrite NEGATIVE NEGATIVE Urine Bilirubin NEGATIVE NEGATIVE Urine Urobilinogen 0.2 < = 1.0 MG/DL Urine Leukocyte Esterase NEGATIVE NEGATIVE Urine RBC (Auto) NEGATIVE NEGATIVE Urine RBC NONE /HPF Urine WBC NONE /HPF Urine Squamous Epithelial Cells RARE /HPF Urine Crystals NONE /LPF Urine Bacteria FEW H /HPF Urine Casts PRESENT /LPF Urine Hyaline Casts 5-10 H /LPF Urine Granular Casts RARE /LPF Urine Mucus NEGATIVE /LPF Urine Culture Indicated YES Micro Results Microbiology 07/28/23 Urine Culture - Preliminary, Resulted My Orders Orders - REMEDIOS NEAL MD Cbc And Automated Diff (07/28/23 15:21) Comprehensive Metabolic Panel (07/28/23 15:21) Hs C Reactive Protein (07/28/23 15:21) Magnesium (07/28/23 15:21) Troponin I Johnson (07/28/23 15:21) Ekg Tracing (07/28/23 15:21) Monitor-Rhythm Ecg Trace Only (07/28/23 15:21) Covid 19 Inhouse Test (07/28/23 15:21) Influenza A And B By Pcr (07/28/23 15:21) Manual Differential (07/28/23 14:35) Orthostatic Vital Signs (Adult (07/28/23 16:31) Chest 1 View, Ap/Pa Only (07/28/23 16:31) Ua Culture If Indicated (07/28/23 16:31) Troponin I Jamal (07/28/23 16:35) Ns Iv 500 Ml (Ns Iv 500 Ml) (07/28/23 16:45) Tick Panel With Lyme Eia (07/28/23 16:40) Urine Culture (07/28/23 18:20) Medications Given in ED Vital Signs/I&O 07/28/23 07/28/23 07/28/23 14:30 18:41 20:21 Temp 36.1 36.9 Pulse 71 64 66 62 70 Resp 18 16 B/P (MAP) 141/72 (95) 156/83 (107) 151/81 158/87 (110) 137/81 (99) Pulse Ox 98 97 O2 Delivery Room Air Room Air Capillary Refill : Less Than 3 Seconds Blood Pressure Mean: 95 Progress Note : Progress Note EKG was interpreted by me as noted below. PVCs were noted. No ischemic changes or arrhythmia was present. Labs were obtained and interpreted by me. CBC was notable for a leukocytosis with WBC count of 15. There is slight anemia with hemoglobin of 12.7. Chemistry was notable for elevated BUN of 41 and elevated creatinine of 2.43. This is near his baseline on review of chart. Glucose was elevated at 135. Serial troponin values were normal x2. Flu and COVID testing were negative. Urine was notable for trace ketones and 5-10 hyaline cast suggesting some degree of hypovolemia. Few bacteria were noted with no WBC. No infection was suspected. Because of leukocytosis, further evaluation for possible infection was pursued. Urine and chest x-ray revealed no source of infection. Patient was concerned about possible tickborne illnesses because he had numerous tick bites this summer and fall. He requested a tick panel be obtained. That was pending at the time of discharge. Ultimately, source of his episode was undetermined. Vasovagal response was considered. He will follow-up with primary care regarding his leukocytosis and tick panel results. See discharge instructions for further discussion. He was feeling at baseline at discharge. He received a normal saline 500 mL fluid bolus. ECG Initial ECG Impression Date: Jul 28, 2023 Initial ECG Impression Time: 15:34 Initial ECG Rate: 70 Initial ECG Rhythm: Normal Sinus Comment Sinus rhythm with frequent PVCs. No ST elevation or depression. Incomplete right bundle branch block. No significant axis deviation. Diagnostic Imaging Diagonstic Imaging: Xray Plain Films/CT/US/NM/MRI: chest Comments NAME: DEB DEL ANGEL [facility] REC#: [id number] PT STATUS: REG ER : 1945 PHYSICIAN: REMEDIOS NEAL MD ADMIT DATE: 07/28/23/ER Signed Date of Exam:07/28/23 CHEST 1 VIEW, AP/PA ONLY EXAMINATION: Chest 1 view. HISTORY: Weakness. Lightheadedness. COMPARISON: 11/12/2022. FINDINGS: The lung volumes are normal. No focal consolidation is seen. No large pleural effusion or pneumothorax is seen. The cardiomediastinal silhouette is normal in size and contour. There is calcified aortic atherosclerotic plaque. No acute osseous abnormality is seen. IMPRESSION: No acute pleuroparenchymal process. Dictated by: Dictated on workstation # [id number] Dict: 07/28/231645 Trans: 07/28/231647 [facility] [id number] Interpreted by: IVELISSE TATUM DO Electronically signed by: IVELISSE TATUM DO 07/28/231647 Departure Impression Primary Impression: Episode of generalized weakness Additional Impressions: Leukocytosis Qualified Codes: D72.829 - Elevated white blood cell count, unspecified Chronic kidney disease Qualified Codes: N18.9 - Chronic kidney disease, unspecified Diarrhea Qualified Codes: R19.7 - Diarrhea, unspecified Disposition: 01 HOME, SELF-CARE Condition: Improved Departure-Patient Inst. Decision time for Depature: 20:14 Referrals: TASHA SIFUENTES MD (PCP/Family) Primary Care Physician Patient Instructions: Vasovagal Response, Weakness ED Add. Discharge Instructions: The exact cause of your symptoms today is uncertain. Low blood sugar may have been a contributing factor. If you have any further symptoms of a similar nature, please check your blood sugar promptly. A vasovagal response may also have been a cause. Please follow-up with your primary care provider soon as possible to discuss further evaluation. Also discussed your high white blood cell count (leukocytosis) with your doctor. The cause of this is uncertain but should be checked again and investigated further. Your tick panel results should be available by end of day Monday. Please conta ct your primary care provider to review results. Return to the ER if you have worsening symptoms despite following these instruc tions. Otherwise, continue taking your medications as previously directed. Drink plenty of water to stay well-hydrated. In the future, reserve your EpiPen for symptoms consistent with allergic reaction which would include itching, hives, racing heart, lightheadedness, significant difficulty breathing, or swelling of the lips, tongue, or throat. All discharge instructions reviewed with patient and/or family. Voiced understanding. Copy Copies To 1: TASHA SIFUENTES MD Copies To 2: TYRON HOLLOWAY MD FACP FACC CCDS REMEDIOS NEAL MD Jul 28, 2023 15:23
[2023-07-28 15:35] LABS: BASOPHILS % (AUTO) 0 % (0-10); EOSINOPHILS # (AUTO) 0.2 10^3/uL (0.0-0.3); EOSINOPHILS % (AUTO) 1 % (0-10); HEMATOCRIT 39 % (40-54); HEMOGLOBIN 12.7 g/dL (13.3-17.7); LYMPHOCYTES # (AUTO) 1.2 X 10^3 (1.0-4.0); LYMPHOCYTES % (AUTO) 8 % (12-44); MEAN CORPUSCULAR HEMOGLOBIN 30 pg (25-34); MEAN CORPUSCULAR HGB CONC 33 g/dL (32-36); MEAN CORPUSCULAR VOLUME 92 fL (80-99); MEAN PLATELET VOLUME 10.3 fL (9.0-12.2); MONOCYTES # (AUTO) 0.8 X 10^3 (0.0-1.0); MONOCYTES % (AUTO) 5 % (0-12); NEUTROPHILS # (AUTO) 12.6 X 10^3 (1.8-7.8); NEUTROPHILS % (AUTO) 85 % (42-75); PLATELET COUNT 191 10^3/uL (130-400)
[2023-07-28 15:39] LABS: ALBUMIN 4.1 GM/DL (3.2-4.5); CHLORIDE 109 MMOL/L (98-107); POTASSIUM 3.9 MMOL/L (3.6-5.0); SODIUM 142 MMOL/L (135-145)
[2023-07-28 15:41] LABS: CALCIUM 9.9 MG/DL (8.5-10.1)
[2023-07-28 15:42] LABS: GLUCOSE 135 MG/DL (70-105); TOTAL PROTEIN 7.1 GM/DL (6.4-8.2)
[2023-07-28 15:43] LABS: CARBON DIOXIDE 20 MMOL/L (21-32)
[2023-07-28 15:44] LABS: BILIRUBIN,TOTAL 0.5 MG/DL (0.1-1.0)
[2023-07-28 15:45] LABS: ALKALINE PHOSPHATASE 149 U/L (40-136); CREATININE SERUM 2.43 MG/DL (0.60-1.30); GFR ESTIMATED 27
[2023-07-28 15:46] LABS: BUN/CREATININE RATIO 17
[2023-07-28 15:48] LABS: ALANINE AMINOTRANSFERASE 8 U/L (0-55)
[2023-07-28 16:09] LABS: EOSINOPHILS % (MANUAL) 1 %; LYMPHOCYTES % (MANUAL) 13 %; MONOCYTES % (MANUAL) 6 %; NEUTROPHILS % (MANUAL) 80 %; RBC MORPH NORMAL
[2023-07-28] MEDS ORDERED: NS IV 500 ML 500 ML IV ONE (16:45)
--- NOTE | 2023-07-28 16:48 | Diagnostic Imaging Report ---
EXAMINATION: Chest 1 view. HISTORY: Weakness. Lightheadedness. COMPARISON: 11/12/2022. FINDINGS: The lung volumes are normal. No focal consolidation is seen. No large pleural effusion or pneumothorax is seen. The cardiomediastinal silhouette is normal in size and contour. There is calcified aortic atherosclerotic plaque. No acute osseous abnormality is seen. IMPRESSION: No acute pleuroparenchymal process. Dictated by: Dictated on workstation # [id number]
[2023-07-28 18:41] VITALS: BP_SYST 137; BP_SYST 156; BP_SYST 158; BP_DIAS 81; BP_DIAS 83; BP_DIAS 87
[2023-07-28 18:56] LABS: BACTERIA,URINE FEW /HPF; BILIRUBIN,URINE NEGATIVE (NEGATIVE); CLARITY,URINE CLEAR; COLOR,URINE YELLOW; GLUCOSE, URINE (UA) NEGATIVE (NEGATIVE); GRANULAR CASTS,URINE RARE /LPF; KETONES,URINE TRACE (NEGATIVE); LEUKOCYTE ESTERASE ,URINE NEGATIVE (NEGATIVE); NITRITE,URINE NEGATIVE (NEGATIVE); PROTEIN,URINE 3+ (NEGATIVE); SQUAMOUS EPITHELIAL CELL,UR RARE /HPF
[2023-07-28 20:21] VITALS: BP 151/81
== END 2023-07-28 20:25 | disposition home or self-care (01) ==
LOC: EDUNIT# 14:15 → ER 14:18
DX: E11.22 Type 2 diabetes mellitus with diabetic chronic kidney disease (principal); D72.829 Elevated white blood cell count, unspecified; I12.9 Hypertensive chronic kidney disease with stage 1 through stage 4 chronic kidney disease, or unspecified chronic kidney disease; N18.9 Chronic kidney disease, unspecified; R19.7 Diarrhea, unspecified; R53.1 Weakness
CPT/HCPCS: 36415; 71045; 80053; 81000; 83735; 84484; 85007; 85027; 86141; 86618; 86666; 86668; 86757; 87088; 87636; 93005; 93041; 96360; 96361

== ENCOUNTER 2023-08-21 12:24 | Emergency (ER) | payer MEDICARE, OTHER ==
[~2023-08-21] VITALS: Ht 189 cm; Wt 111.0 kg
[~2023-08-21 12:24] MED LIST changes: +DOXY100T2 PO
--- NOTE | 2023-08-21 12:50 | ED General ---
General Chief Complaint: General Problems/Pain Stated Complaint: WEAKNESS | HEART MONITOR Nursing Triage Note: PT STATES HE JUST DOESN'T FEEL RIGHT SINCE THIS MORNING, HAS HEAD CONGESTION AND HAS BEEN TAKING MEDS FOR THAT. HAS A ZIO XT HEART MONITION BY DR. HOLLOWAY THAT WAS PUT ON LAST WEEK. THE WEEK BEFORE JUAN LUIS PT WAS SEEN HERE IN THE ER. Source of Information: Patient Exam Limitations: No Limitations History of Present Illness Date Seen by Provider: Aug 21, 2023 Time Seen by Provider: 12:48 Initial Comments Patient is a 78-year-old male with a history of hypertension, type 2 diabetes who presents to ED for not feeling right since this morning when he woke up. Woke up with nasal congestion and head congestion. Took Coricidin with some improvement. States throughout the morning he has had continued weakness more generalized. Patient is able to ambulate without difficulties. Denies unsteady gait, unilateral muscle weakness or sensory changes, visual loss, facial droop or change in mental status according to daughter at bedside. Did have a zio external heart monitor placed by Dr. Coombs 1 week ago. He denies of any chest pain short of breath heart palpitations Lionel pain vomiting diarrhea shortness of breath, cough. States he was recently diagnosed with spotted fever was treated with antibiotics just finished yesterday. Cannot recall the antibiotic. Follows Dr. Crabtree. Denies of any pain with urination frequent urination fever chills body aches. Similar type episode a few weeks ago and symptoms did improve. Allergies and Home Medications Allergies Coded Allergies: Penicillins (Verified Allergy, Unknown, 11/14/22) PATIENT SAID HE HAD A REACTION WHEN HE WAS A CHILD BUT HAS HAD PENVK MULTIPLE TIMES AN ADULT WITH NO ISSUES Patient Home Medication List Home Medication List Reviewed: Yes Allopurinol (Allopurinol) 100 Mg Tablet, 200 MG PO HS, (Reported) Entered as Reported by: CARLOS BLOOM on 03/21/22 1059 Amlodipine Besylate (Amlodipine Besylate) 10 Mg Tablet, 10 MG PO DAILY, (Reported) Entered as Reported by: SADIQ BRADY on 11/14/22 1051 Aspirin (Aspirin EC) 81 Mg Tablet.dr, 81 MG PO HS, (Reported) Entered as Reported by: SADIQ BRADY on 11/14/22 1051 Atorvastatin Calcium (Atorvastatin Calcium) 40 Mg Tablet, 40 MG PO HS, (Reported) Entered as Reported by: SADIQ BRADY on 11/14/22 1051 Diphenhydramine HCl (Benadryl Allergy) 25 Mg Tablet, 50 MG PO HS, (Reported) Entered as Reported by: SADIQ BRADY on 11/14/22 1051 Doxycycline Hyclate (Doxycycline Hyclate) 100 Mg Tablet, 100 MG PO BID Prescribed by: HEAVEN JOHNSON on 08/05/23 0647 Epinephrine (Epipen 2-Sly) 0.3 Mg/0.3 Ml Auto.injct, 0.3 MG IJ PRN Prescribed by: DESHAUN PIPER on 11/15/22 1430 Glimepiride (Glimepiride) 1 Mg Tablet, 1 MG PO DAILY, (Reported) Entered as Reported by: INDIRA FAULKNER on 11/05/19 1445 Ibuprofen (Ibuprofen) 200 Mg Tablet, 600 MG PO Q8H PRN for PAIN-MILD (1-4), (Reported) Entered as Reported by: CARLOS BLOOM on 03/21/22 1103 Loperamide HCl (Imodium A-D) 2 Mg Capsule, 2-4 MG PO UD PRN for DIARRHEA, (Reported) Entered as Reported by: SADIQ BRADY on 11/14/22 1051 Loratadine (Loratadine) 10 Mg Tablet, 10 MG PO DAILY Prescribed by: DESHAUN PIPER on 11/15/22 1011 Metformin HCl (Metformin HCl) 1,000 Mg Tablet, 2,000 MG PO DAILY Prescribed by: DESHAUN PIPER on 11/15/22 1011 Oxymetazoline HCl (Vicks Sinex) 0.05 % Mist, 1-2 SPRAY NSEACH HS, (Reported) Entered as Reported by: SADIQ BRADY on 11/14/22 1051 Prednisone (Prednisone) 20 Mg Tab, 40 MG PO DAILY@0700 Prescribed by: DESHAUN PIPER on 11/15/22 1011 Review of Systems Review of Systems Constitutional: No chills, No diaphoresis, No fever; malaise, weakness EENTM: No ear pain, No blurred vision, No double vision, No mouth pain, No mouth swelling, No throat pain, No throat swelling, No other Respiratory: No cough, No dyspnea on exertion Cardiovascular: No chest pain Gastrointestinal: No abdominal pain, No nausea, No vomiting Genitourinary: No decreased output, No discharge Musculoskeletal: No back pain, No joint pain Skin: No change in color, No change in hair/nails All Other Systems Reviewed Negative Unless Noted: Yes Past Krbsjar-Lvelbp-Hsuvvm Hx Patient Social History Tobacco Use?: No Substance use?: No Alcohol Use?: No Immunizations Up To Date Tetanus Booster (TDap): Unknown PED Vaccines UTD: Yes First/Initial COVID19 Vaccinat: YES Second COVID19 Vaccination Andrea: YES Third COVID19 Vaccination Date: YES Past Medical History Surgery/Hospitalization HX: gall bladder, heart cath - clean, tossilectomy,bilat hip replacement, htn, dm2, high cholesterol. Surgeries: Yes (BILATERAL KNEE REPLACEMENTS;COLONOSCOPY/POLYPECTOMIES 2006) Adenoidectomy, Gallbladder, Joint Replacement, Orthopedic, Tonsillectomy Respiratory: No Cardiac: Yes High Cholesterol, Hypertension Neurological: No Reproductive Disorders: No Sexually Transmitted Disease: No Genitourinary: Yes (E.D.) Renal Failure Gastrointestinal: Yes (S/P CHOLECYSTECTOMY;COLONOSCOPY 2006--POLYPECTOMY, DIVERTICULOSIS) Diverticulosis, Pancreatitis, Polyps, Gall Bladder Disease Musculoskeletal: Yes (BILATERAL KNEE REPLACEMENTS; CHRONIC LOW BACK PAIN ) Arthritis, Chronic Back Pain, Gout Endocrine: Yes Diabetes, Non-Insulin dep HEENT: No Cancer: No Psychosocial: No Integumentary: No Blood Disorders: No Family Medical History No Pertinent Family Hx, Diabetes, Hypertension, Stroke Physical Exam Vital Signs Vital Signs - First Documented 08/21/23 12:32 Temp 36.2 Pulse 67 Resp 20 B/P (MAP) 205/93 (130) Pulse Ox 100 O2 Delivery Room Air Capillary Refill : Less Than 3 Seconds Height, Weight, BMI Height: '" Weight: lbs. oz. kg; 31.00 BMI Method: General Appearance: No Apparent Distress, WD/WN Eyes: Bilateral Eye Normal Inspection, Bilateral Eye PERRL, Bilateral Eye EOMI HEENT: PERRL/EOMI, TMs Normal, Normal ENT Inspection, Pharynx Normal Neck: Full Range of Motion, Normal Inspection, Non Tender, Supple Respiratory: Chest Non Tender, Lungs Clear, Normal Breath Sounds, No Accessory Muscle Use, No Respiratory Distress Cardiovascular: Regular Rate, Rhythm, No Edema, No Gallop, No JVD, No Murmur Gastrointestinal: Normal Bowel Sounds, No Organomegaly, No Pulsatile Mass, Non Tender Back: Normal Inspection, No CVA Tenderness Extremity: Normal Capillary Refill, Normal Inspection, Normal Range of Motion, Non Tender Neurologic/Psychiatric: Alert, Oriented x3, No Motor/Sensory Deficits, Normal Mood/Affect, international exchange coordinator II-XII Norm as Tested Skin: Normal Color, Warm/Dry Progress/Results/Core Measures Suspected Sepsis SIRS Temperature: Pulse: 67 Respiratory Rate: 20 Laboratory Tests 08/21/23 12:55: White Blood Count 7.5 Blood Pressure 205 /93 Mean: 130 Laboratory Tests 08/21/23 12:55: Creatinine 1.57H, INR Comment 1.0, Platelet Count 163, Total Bilirubin 0.3 Results/Orders Lab Results Laboratory Tests Test 08/21/23 12:55 08/21/23 12:58 08/21/23 15:05 Range/Units White Blood Count 7.5 4.3-11.0 10^3/uL Red Blood Count 4.23 L 4.30-5.52 10^6/uL Hemoglobin 12.8 L 13.3-17.7 g/dL Hematocrit 38 L 40-54 % Mean Corpuscular Volume 90 80-99 fL Mean Corpuscular Hemoglobin 30 25-34 pg Mean Corpuscular Hemoglobin Concent 34 32-36 g/dL Red Cell Distribution Width 13.9 10.0-14.5 % Platelet Count 163 130-400 10^3/uL Mean Platelet Volume 9.6 9.0-12.2 fL Immature Granulocyte % (Auto) 1 % Neutrophils (%) (Auto) 67 42-75 % Lymphocytes (%) (Auto) 20 12-44 % Monocytes (%) (Auto) 7 0-12 % Eosinophils (%) (Auto) 4 0-10 % Basophils (%) (Auto) 1 0-10 % Neutrophils # (Auto) 5.0 1.8-7.8 10^3/uL Lymphocytes # (Auto) 1.5 1.0-4.0 10^3/uL Monocytes # (Auto) 0.6 0.0-1.0 10^3/uL Eosinophils # (Auto) 0.3 0.0-0.3 10^3/uL Basophils # (Auto) 0.1 0.0-0.1 10^3/uL Immature Granulocyte # (Auto) 0.1 0.0-0.1 10^3/uL Prothrombin Time 13.1 12.2-14.7 SEC INR Comment 1.0 0.8-1.4 Activated Partial Thromboplast Time 24 24-35 SEC Sodium Level 143 135-145 MMOL/L Potassium Level 4.0 3.6-5.0 MMOL/L Chloride Level 111 H 98-107 MMOL/L Carbon Dioxide Level 20 L 21-32 MMOL/L Anion Gap 12 5-14 MMOL/L Blood Urea Nitrogen 23 H 7-18 MG/DL Creatinine 1.57 H 0.60-1.30 MG/DL Estimat Glomerular Filtration Rate 45 BUN/Creatinine Ratio 15 Glucose Level 116 H 70-105 MG/DL Calcium Level 10.5 H 8.5-10.1 MG/DL Corrected Calcium 10.2 H 8.5-10.1 MG/DL Magnesium Level 2.1 1.6-2.4 MG/DL Total Bilirubin 0.3 0.1-1.0 MG/DL Aspartate Amino Transf (AST/SGOT) 14 5-34 U/L Alanine Aminotransferase (ALT/SGPT) 9 0-55 U/L Alkaline Phosphatase 138 H 40-136 U/L Myoglobin 85.2 10.0-92.0 NG/ML Troponin I < 0.028 <0.028 NG/ML Total Protein 7.5 6.4-8.2 GM/DL Albumin 4.4 3.2-4.5 GM/DL Lipase 28 8-78 U/L Influenza Type A (RT-PCR) Not Detected Not Detecte Influenza Type B (RT-PCR) Not Detected Not Detecte SARS-CoV-2 RNA (RT-PCR) Not Detected Not Detecte Urine Color YELLOW Urine Clarity CLEAR Urine pH 5.5 5-9 Urine Specific [place] 1.025 H 1.016-1.022 Urine Protein 3+ H NEGATIVE Urine Glucose (UA) NEGATIVE NEGATIVE Urine Ketones NEGATIVE NEGATIVE Urine Nitrite NEGATIVE NEGATIVE Urine Bilirubin NEGATIVE NEGATIVE Urine Urobilinogen 0.2 < = 1.0 MG/DL Urine Leukocyte Esterase NEGATIVE NEGATIVE Urine RBC (Auto) NEGATIVE NEGATIVE Urine RBC NONE /HPF Urine WBC NONE /HPF Urine Squamous Epithelial Cells RARE /HPF Urine Crystals NONE /LPF Urine Bacteria NEGATIVE /HPF Urine Casts NONE /LPF Urine Mucus NEGATIVE /LPF Urine Culture Indicated NO My Orders Orders - HEAVEN FERGUSON Covid 19 Inhouse Test (08/21/23 12:46) Influenza A And B By Pcr (08/21/23 12:46) Cbc And Automated Diff (08/21/23 12:46) Magnesium (08/21/23 12:46) Chest 1 View, Ap/Pa Only (08/21/23 12:46) Ekg Tracing (08/21/23 12:46) Comprehensive Metabolic Panel (08/21/23 12:46) Myoglobin Serum (08/21/23 12:46) Protime With Inr (08/21/23 12:46) Partial Thromboplastin Time (08/21/23 12:46) O2 (08/21/23 12:46) Monitor-Rhythm Ecg Trace Only (08/21/23 12:46) Ed Iv/Invasive Line Start (08/21/23 12:46) Lipase (08/21/23 12:46) Troponin I [place] (08/21/23 12:46) Ua Culture If Indicated (08/21/23 12:46) Ct Head Wo (08/21/23 13:16) Hydralazine Injection (Hydralazine Injec (08/21/23 14:30) Medications Given in ED Vital Signs/I&O 08/21/23 08/21/23 12:32 16:05 Temp 36.2 36.2 Pulse 67 65 Resp 20 20 B/P (MAP) 205/93 (130) 175/92 Pulse Ox 100 100 O2 Delivery Room Air Room Air Capillary Refill : Less Than 3 Seconds Blood Pressure Mean: 130 ECG Comment Sinus rhythm, supraventricular bigeminy, left anterior fascicular block, 62 bpm, QRS duration 117 MS, QTc 450 MS. Departure Communication (PCP) Reviewed previous ER visits, H&P, lab testing. Patient was seen here August 07 for generalized weakness. Patient had Reassuring lab work and discharged. [place] much better until this morning, woke up not feeling well. Reports gene ralized weakness. Did report some nasal congestion and sinus pressure today but that has improved. History of hypertension and diabetes. Patient had a equipment monitor phototypesetting placed last week by Dr. Lemus. Schedule follow-up this . Patient without chest pain, short of breath, cough, abdominal, pain, vomiting ,diarrhea, fever. No specific headache. No strokelike symptoms. NIH is 0. Recently finished doxycycline as patient tested positive for spotted fever secondary to a tick bite earlier this summer. Generalized workup CT scan the head EKG urinalysis. EKG without evidence of ST elevation or depression. No evidence of A-fib or a flutter. Chest x-ray was negative for pneumonia, pneumothorax. CBC was grossly unremarkable. Stable hemoglobin. Chemistry showed a creatinine 1.57 GFR 45 which shows a vast improvement from previous kidney function. Normal liver function, lipase. Troponin negative. Urinalysis negative for infection. CT head negative for any acute abnormality. Patient wa s hypertensive on arrival. . Does take irbesartan hydrochlorothiazide and metoprolol. Did take his medication today. Patient did receive 10 mg of IV hydralazine. Did noted some improvement . Blood pressure did improve to near 160 systolic. Did fluctuate in the 170s. States his blood pressure does typically run a little bit higher. As patient is currently asymptomatic will discharge with strict return precautions. Needs to continue watching his blood pressure. Reassuring lab work. Nonspecific generalized weakness. If any worsening symptoms and developing chest pain or shortness of breath return back to ED. Impression Primary Impression: Generalized weakness Additional Impression: Hypertension Disposition: 01 HOME, SELF-CARE Condition: Stable Departure-Patient Inst. Decision time for Depature: 15:53 Referrals: TASHA CRABTREE MD (PCP/Family) Primary Care Physician Patient Instructions: Generalized Weakness Add. Discharge Instructions: Need to follow-up with your primary care physician for further evaluation. Continue monitor your blood pressure. If any worsening symptoms return back to ED. All discharge instructions reviewed with patient and/or family. Voiced understanding. HEAVEN FERGUSON Aug 21, 2023 12:50
[2023-08-21 13:03] LABS: BASOPHILS # (AUTO) 0.1 10^3/uL (0.0-0.1); BASOPHILS % (AUTO) 1 % (0-10); EOSINOPHILS # (AUTO) 0.3 10^3/uL (0.0-0.3); EOSINOPHILS % (AUTO) 4 % (0-10); HEMATOCRIT 38 % (40-54); HEMOGLOBIN 12.8 g/dL (13.3-17.7); LYMPHOCYTES # (AUTO) 1.5 10^3/uL (1.0-4.0); LYMPHOCYTES % (AUTO) 20 % (12-44); MEAN CORPUSCULAR HEMOGLOBIN 30 pg (25-34); MEAN CORPUSCULAR HGB CONC 34 g/dL (32-36); MEAN CORPUSCULAR VOLUME 90 fL (80-99); MEAN PLATELET VOLUME 9.6 fL (9.0-12.2); MONOCYTES # (AUTO) 0.6 10^3/uL (0.0-1.0); MONOCYTES % (AUTO) 7 % (0-12); NEUTROPHILS % (AUTO) 67 % (42-75); PLATELET COUNT 163 10^3/uL (130-400); WHITE BLOOD COUNT 7.5 10^3/uL (4.3-11.0)
[2023-08-21 13:12] LABS: ALBUMIN 4.4 GM/DL (3.2-4.5); CHLORIDE 111 MMOL/L (98-107); SODIUM 143 MMOL/L (135-145)
[2023-08-21 13:13] LABS: CALCIUM 10.5 MG/DL (8.5-10.1); PROTHROMBIN TIME PATIENT 13.1 SEC (12.2-14.7)
[2023-08-21 13:14] LABS: GLUCOSE 116 MG/DL (70-105)
--- NOTE | 2023-08-21 13:14 | Diagnostic Imaging Report ---
INDICATION: Chest pain. COMPARISON: 07/28/2023. FINDINGS: The lungs are clear. There is no failure pattern, effusion, or pneumothorax. IMPRESSION: No acute appearing abnormality. Dictated by: Dictated on workstation # [id number]
[2023-08-21 13:15] LABS: TOTAL PROTEIN 7.5 GM/DL (6.4-8.2)
[2023-08-21 13:16] LABS: BILIRUBIN,TOTAL 0.3 MG/DL (0.1-1.0); CARBON DIOXIDE 20 MMOL/L (21-32)
[2023-08-21 13:18] LABS: ALKALINE PHOSPHATASE 138 U/L (40-136); CREATININE SERUM 1.57 MG/DL (0.60-1.30); GFR ESTIMATED 45
[2023-08-21 13:19] LABS: BUN/CREATININE RATIO 15
[2023-08-21 13:21] LABS: ALANINE AMINOTRANSFERASE 9 U/L (0-55); MAGNESIUM 2.1 MG/DL (1.6-2.4)
[2023-08-21 13:22] LABS: LIPASE 28 U/L (8-78)
--- NOTE | 2023-08-21 14:16 | Diagnostic Imaging Report ---
INDICATION: Weakness. TECHNIQUE: Routine non contrast-enhanced axial images were obtained from the skull base to the vertex. Auto Exposure Controls were utilized during the CT exam to meet ALARA standards for radiation dose reduction COMPARISON: 11/12/2022. FINDINGS: The ventricles and cortical sulci are diffusely prominent, compatible with age-related volume loss. There are confluent areas of abnormal, low attenuation in the periventricular white matter. This is consistent with chronic small vessel ischemic changes. There is no midline shift or mass-effect. No acute intra-axial hemorrhage is seen. There are no abnormal areas of increased or decreased density to suggest acute hemorrhage or edema. No extra-axial masses or collections are present. The bony calvarium is intact. The visualized paranasal sinuses show mild scattered mucosal thickening. The mastoid air cells are clear. IMPRESSION: 1. No acute intracranial abnormality. No CT evidence of mass, acute infarct or intracranial hemorrhage. 2. Chronic small vessel ischemic changes in the deep white matter. Dictated by: Dictated on workstation # [id number]
[2023-08-21] MEDS ORDERED: hydrALAZINE INJECTION 20 MG/ML VIAL IV ONE (14:30)
[2023-08-21 15:30] LABS: CLARITY,URINE CLEAR; COLOR,URINE YELLOW; GLUCOSE, URINE (UA) NEGATIVE (NEGATIVE); PH,URINE 5.5 (5-9); PROTEIN,URINE 3+ (NEGATIVE)
[2023-08-21 15:31] LABS: BACTERIA,URINE NEGATIVE /HPF; BILIRUBIN,URINE NEGATIVE (NEGATIVE); KETONES,URINE NEGATIVE (NEGATIVE); LEUKOCYTE ESTERASE ,URINE NEGATIVE (NEGATIVE); NITRITE,URINE NEGATIVE (NEGATIVE); SQUAMOUS EPITHELIAL CELL,UR RARE /HPF
[2023-08-21 16:05] VITALS: BP 175/92
== END 2023-08-21 16:02 | disposition home or self-care (01) ==
LOC: EDUNIT# 12:24 → ER 12:25
DX: I10 Essential (primary) hypertension (principal); R53.1 Weakness; Z98.61 Coronary angioplasty status
CPT/HCPCS: 36415; 70450; 71045; 80053; 81000; 83690; 83735; 83874; 84484; 85025; 85610; 85730; 87636; 93005; 93041